=== PATIENT | female | born 1950 | race Caucasian/White ===

== ENCOUNTER 2018-12-15 22:00 | Inpatient (IN) | payer MEDICARE ==
[~2018-12-15] VITALS: Ht 160 cm; Wt 93.9 kg
[~2018-12-15 22:00] MED LIST: ASPI325T8 PO; DIME120C2 PO; TIZANIDINE HCL2 MG PO; TOLT1TAB2 PO
[2018-12-15] MEDS ORDERED: ASPIRIN 81 MG TAB.CHEW PO ONE (22:30)
[2018-12-15] MEDS ORDERED: IV RINGERS SOLUTION,LACTATED 1,000 ML IV SCH (22:30)
[2018-12-15] MEDS ORDERED: methylPREDNISolone SOD SUCC PF 125 MG/2 ML VIAL. IV ONE (22:30)
[2018-12-15] MEDS ORDERED: VANCOMYCIN 1 GM in IV NORMAL SALINE 250ML 250 ML IV ONE (22:30)
--- NOTE | 2018-12-15 22:41 | ED.ADGEN ---
Past History Past Medical History: Bronchitis, CAD, COPD, Depression, Diabetes, UTI, Other Additional Past Medical Histor: MS Past Surgical History: Appendectomy, Hysterectomy, Other Smoking: Non-smoker, Quit Greater Than 1 Year Alcohol Use: None Drug Use: None Adult General Chief Complaint Chief Complaint ".. I been getting sick for a while.... Weeks.. at least two.... Urinary tract infections..on some kind of antibiotic.. but getting sicker..high fevers..and I ve had MS ...since 2006...was my diagnosis... but had it probably for years... " " [facility] sent me up because of my fever s never got better on antibiotics..." HPI HPI Patient is a 68 year old female who presents with above hx and complaints fever , chills, fatigues, malaise and increased dyspnea., Pt. a resident of [facility], since 09/24/2016. Patient has a significant medical history of multiple sclerosis, dysphagia, pedis, aspiration, generalized muscle weakness, obesity, respiratory failure with hypoxia and hypercapnia, constipation, urinary retention, hyperlipidemia, peripheral neuropathy, chronic pain, osteoarthritis, frequent falls, hypertension, and generalized deconditioning. Patient passed is followed with Dr. Good. No recent travel or specific ill contacts. Patient presents with history of moderately severe respiratory distress. Review of Systems Review of Systems Constitutional: History of fever or chills [] Eyes: Denies change in visual acuity, redness, or eye pain [] HENT: History of nasal congestion , drainage and sore throat [] Respiratory: History of cough and shortness of breath [] Cardiovascular: No additional information not addressed in HPI [] GI: Denies abdominal pain, nausea, vomiting, bloody stools or diarrhea [] : History of urinary retention and overflow stress incontinence Musculoskeletal: Complains of generalized muscle weakness Integument: Denies rash or skin lesions [] Neurologic: Denies headache, focal weakness or sensory changes [] Endocrine: Denies polyuria or polydipsia [] All other systems were reviewed and found to be within normal limits, except as documented in this note. Family History Family History "Everyone has Emphysema in my family" Current Medications Current Medications Current Medications Medications (Trade) Dose Ordered Sig/Estrada Start Time Stop Time Status Last Admin Dose Admin Albuterol/ Ipratropium (Duoneb) 3 ml 1X ONCE 12/15/18 23:00 12/15/18 23:03 DC 12/16/18 00:00 3 ML Aspirin (Children'S Aspirin) 324 mg 1X ONCE 12/15/18 22:30 12/15/18 22:37 DC 12/15/18 23:20 324 MG Ceftriaxone Sodium 1 gm/ Sodium Chloride 50 ml @ 100 mls/hr 1X ONCE 12/15/18 22:30 12/15/18 22:59 DC 12/15/18 23:51 100 MLS/HR Ceftriaxone Sodium (Rocephin) 1 gm STK-MED ONCE 12/15/18 23:15 12/15/18 23:16 DC Enoxaparin Sodium (Lovenox 80mg Syringe) 80 mg 1X ONCE 12/15/18 23:30 12/15/18 23:31 DC 12/15/18 23:53 80 MG Lactated Ringer's 1,000 ml @ 1,000 mls/hr Q1H 12/15/18 22:30 12/15/18 23:29 DC 12/15/18 23:21 1,000 MLS/HR Methylprednisolone Sodium Succinate (SOLU-Medrol 125MG VIAL) 125 mg 1X ONCE 12/15/18 22:30 12/15/18 22:37 DC 12/15/18 23:22 125 MG Sodium Chloride 50 ml @ As Directed STK-MED ONCE 12/15/18 23:15 12/15/18 23:16 DC Vancomycin HCl 1 gm/Sodium Chloride 250 ml @ 250 mls/hr 1X ONCE 12/15/18 22:30 12/15/18 22:38 DC Vancomycin HCl 2 gm/Sodium Chloride 500 ml @ 250 mls/hr 1X ONCE 12/15/18 22:45 12/16/18 00:44 DC 12/16/18 00:50 250 MLS/HR He nursing for home meds Allergies Allergies Allergies Coded Allergies Type Severity Reaction Last Updated Verified No Known Drug Allergies 12/06/13 No Physical Exam Physical Exam Constitutional: Moderate acute acute distress, chronically ill in appearance. [] HENT: Normocephalic, atraumatic, bilateral external ears normal, oropharynx moist, no oral exudates, nose swollen turbinates, clear rhinorrhea, mildly injected pharynx. Eyes: PERRLA, EOMI, conjunctiva normal, no discharge. Right eye droop. Does have findings of previous cataract eye surgery on right. Neck: Normal range of motion, no tenderness, supple, no stridor. [] Cardiovascular: Tachycardia Heart rate,ill regular rhythm, no murmur, PMI in to the left. Lungs & Thorax: Bilateral breath sounds equal at apex with scattered wheezes and basilar crackles bilaterally on auscultation [] Abdomen: Bowel sounds normal, soft, no tenderness, no masses, no pulsatile masses. [] Skin: Warm, dry, no erythema, no rash. [] Back: No tenderness, no CVA tenderness. [] Extremities: No tenderness, no cyanosis, no clubbing, generalized weakness in legs with foot drop, bilateral ankle edema. [] Has old surgery scar on right hip and femur area. Neurologic: Alert and oriented X 3, generalized motor weakness more in legs and upper body,, decrease plantar sensory function, no focal deficits noted from baseline per patient and her . Psychologic: Affect anxious, judgement normal, mood depressed. Current Patient Data Vital Signs Vital Signs Date Time Temp Pulse Resp B/P (MAP) Pulse Ox O2 Delivery O2 Flow Rate FiO2 12/16/18 00:31 116 14 119/44 (69) 92 Nasal Cannula 2.0 12/15/18 22:05 101.8 Lab Results Laboratory Tests Test 12/15/18 22:17 12/15/18 22:35 12/15/18 23:40 12/15/18 23:59 White Blood Count 10.0 x10^3/uL (4.0-11.0) Red Blood Count 4.79 x10^6/uL (3.50-5.40) Hemoglobin 14.5 g/dL (12.0-15.5) Hematocrit 43.3 % (36.0-47.0) Mean Corpuscular Volume 90 fL (79-100) Mean Corpuscular Hemoglobin 30 pg (25-35) Mean Corpuscular Hemoglobin Concent 33 g/dL (31-37) Red Cell Distribution Width 13.5 % (11.5-14.5) Platelet Count 179 x10^3/uL (140-400) Neutrophils (%) (Auto) 83 % (31-73) H Lymphocytes (%) (Auto) 12 % (24-48) L Monocytes (%) (Auto) 3 % (0-9) Eosinophils (%) (Auto) 1 % (0-3) Basophils (%) (Auto) 0 % (0-3) Neutrophils # (Auto) 8.3 x10^3uL (1.8-7.7) H Lymphocytes # (Auto) 1.2 x10^3/uL (1.0-4.8) Monocytes # (Auto) 0.3 x10^3/uL (0.0-1.1) Eosinophils # (Auto) 0.1 x10^3/uL (0.0-0.7) Basophils # (Auto) 0.0 x10^3/uL (0.0-0.2) Erythrocyte Sedimentation Rate 42 (0-25) H Prothrombin Time 9.8 SEC (9.4-11.4) Prothrombin Time INR 1.0 (0.9-1.1) PTT 23 SEC (23-33) D-Dimer (Margarette) 1.36 mg/L (0.00-0.50) H Sodium Level 138 mmol/L (136-145) Potassium Level 3.5 mmol/L (3.5-5.1) Chloride Level 103 mmol/L (98-107) Carbon Dioxide Level 27 mmol/L (21-32) Anion Gap 8 (6-14) Blood Urea Nitrogen 18 mg/dL (7-20) Creatinine 0.7 mg/dL (0.6-1.0) Estimated GFR (Cockcroft-Gault) 83.2 Glucose Level 190 mg/dL (70-99) H Lactic Acid Level 1.9 mmol/L (0.4-2.0) Calcium Level 8.4 mg/dL (8.5-10.1) L Magnesium Level 1.7 mg/dL (1.8-2.4) L Total Bilirubin 0.5 mg/dL (0.2-1.0) Direct Bilirubin 0.1 mg/dL (0.0-0.2) Aspartate Amino Transferase (AST) 21 U/L (15-37) Alanine Aminotransferase (ALT) 11 U/L (14-59) L Alkaline Phosphatase 60 U/L (46-116) Creatine Kinase 32 U/L (26-192) Troponin I Quantitative 0.129 ng/mL (0-0.055) H HP-Pnf-P-Type Natriuretic Peptide 92 pg/mL (0-124) Total Protein 8.3 g/dL (6.4-8.2) H Albumin 3.1 g/dL (3.4-5.0) L Lipase 107 U/L (73-393) Blood pH 7.39 (7.35-7.45) Blood Gas PCO2 40 mmHg (35-45) Blood Gas PO2 54 mmHg (80-100) L Blood Gas HCO3 24 mmol/L (22-26) Arterial Bld O2 Saturation (Calc) 84 % (92-99) L FiO2 21 % Urine Collection Type U cath Urine Color Yellow Urine Clarity Cloudy Urine pH 7.0 Urine Specific [place] 1.020 Urine Protein 100 mg/dl (NEG-TRACE) Urine Glucose (UA) Neg mg/dL (NEG) Urine Ketones (Stick) 40 mg/dL (NEG) Urine Blood Mod (NEG) Urine Nitrite Pos (NEG) Urine Bilirubin Neg (NEG) Urine Urobilinogen Dipstick 0.2 mg/dL (0.2 mg/dL) Urine Leukocyte Esterase Large (NEG) Urine RBC 1-2 /HPF (0-2) Urine WBC >40 /HPF (0-4) Urine Squamous Epithelial Cells None /LPF Urine Bacteria Many /HPF (0-FEW) Influenza Type A (Rapid) Negative (NEGATIVE) Influenza Type B (Rapid) Negative (NEGATIVE) EKG EKG My interpretation EKG shows a sinus tachycardia with a wavering baseline due to respiratory distress. There is a right axis deviation. Some nonspecific contour changes. No findings of acute STEMI with contralateral changes.[] Radiology/Procedures Radiology/Procedures My interpretation of chest x-ray shows chronic pulmonary changes. Basilar atelectasis. Cardiomegaly.[] No large pulmonary consolidation. Course & Med Decision Making Course & Med Decision Making Pertinent Labs and Imaging studies reviewed. (See chart for details) Discussed presentation, testing and treatment plan with - Admit for further eval. Cardiology consult. [] Final Impression Final Impression 1. Fevers 2. Urinary tract infections 3. Multiple sclerosis 4. Diabetes- glucose is 190 5. Elevated troponin- 0.129 6. Malnutrition albumin 3.1 7. Hypo-magnesium 1.7 8. Elevated d-dimer 1.36 9. SIRS/ Sepsis? 10.Decondition- 11.Bronchitis 12.Acute on Chronic Respiratory Failure-Hypoxic/Hypercarbic [] Dragon Disclaimer Dragon Disclaimer This electronic medical record was generated, in whole or in part, using a voice recognition dictation system. Dragon Disclaimer This chart was dictated in whole or in part using Voice Recognition software in a busy, high-work load, and often noisy Emergency Department environment. It may contain unintended and wholly unrecognized errors or omissions. Dragon Disclaimer This chart was dictated in whole or in part using Voice Recognition software in a busy, high-work load, and often noisy Emergency Department environment. It may contain unintended and wholly unrecognized errors or omissions. Discharge Summary Visit Information Final Diagnosis Problems Medical Problems: (1) Fever Status: Acute Brief Hospital Course Allergies Allergies Coded Allergies Type Severity Reaction Last Updated Verified No Known Drug Allergies 12/06/13 No Vital Signs Vital Signs Date Time Temp Pulse Resp B/P (MAP) Pulse Ox O2 Delivery O2 Flow Rate FiO2 12/16/18 00:31 116 14 119/44 (69) 92 Nasal Cannula 2.0 12/15/18 22:05 101.8 Lab Results Laboratory Tests Test 12/15/18 22:17 12/15/18 22:35 12/15/18 23:40 12/15/18 23:59 White Blood Count 10.0 x10^3/uL (4.0-11.0) Red Blood Count 4.79 x10^6/uL (3.50-5.40) Hemoglobin 14.5 g/dL (12.0-15.5) Hematocrit 43.3 % (36.0-47.0) Mean Corpuscular Volume 90 fL (79-100) Mean Corpuscular Hemoglobin 30 pg (25-35) Mean Corpuscular Hemoglobin Concent 33 g/dL (31-37) Red Cell Distribution Width 13.5 % (11.5-14.5) Platelet Count 179 x10^3/uL (140-400) Neutrophils (%) (Auto) 83 % (31-73) Lymphocytes (%) (Auto) 12 % (24-48) Monocytes (%) (Auto) 3 % (0-9) Eosinophils (%) (Auto) 1 % (0-3) Basophils (%) (Auto) 0 % (0-3) Neutrophils # (Auto) 8.3 x10^3uL (1.8-7.7) Lymphocytes # (Auto) 1.2 x10^3/uL (1.0-4.8) Monocytes # (Auto) 0.3 x10^3/uL (0.0-1.1) Eosinophils # (Auto) 0.1 x10^3/uL (0.0-0.7) Basophils # (Auto) 0.0 x10^3/uL (0.0-0.2) Erythrocyte Sedimentation Rate 42 (0-25) Prothrombin Time 9.8 SEC (9.4-11.4) Prothromb Time International Ratio 1.0 (0.9-1.1) Activated Partial Thromboplast Time 23 SEC (23-33) D-Dimer (Margarette) 1.36 mg/L (0.00-0.50) Sodium Level 138 mmol/L (136-145) Potassium Level 3.5 mmol/L (3.5-5.1) Chloride Level 103 mmol/L (98-107) Carbon Dioxide Level 27 mmol/L (21-32) Anion Gap 8 (6-14) Blood Urea Nitrogen 18 mg/dL (7-20) Creatinine 0.7 mg/dL (0.6-1.0) Estimated GFR (Cockcroft-Gault) 83.2 Glucose Level 190 mg/dL (70-99) Lactic Acid Level 1.9 mmol/L (0.4-2.0) Calcium Level 8.4 mg/dL (8.5-10.1) Magnesium Level 1.7 mg/dL (1.8-2.4) Total Bilirubin 0.5 mg/dL (0.2-1.0) Direct Bilirubin 0.1 mg/dL (0.0-0.2) Aspartate Amino Transf (AST/SGOT) 21 U/L (15-37) Alanine Aminotransferase (ALT/SGPT) 11 U/L (14-59) Alkaline Phosphatase 60 U/L (46-116) Creatine Kinase 32 U/L (26-192) Troponin I Quantitative 0.129 ng/mL (0-0.055) WB-Pyw-D-Type Natriuretic Peptide 92 pg/mL (0-124) Total Protein 8.3 g/dL (6.4-8.2) Albumin 3.1 g/dL (3.4-5.0) Lipase 107 U/L (73-393) Blood Gas pH 7.39 (7.35-7.45) Blood Gas PCO2 40 mmHg (35-45) Blood Gas PO2 54 mmHg (80-100) Blood Gas HCO3 24 mmol/L (22-26) Arterial Bld O2 Saturation (Calc) 84 % (92-99) FiO2 21 % Urine Collection Type U cath Urine Color Yellow Urine Clarity Cloudy Urine pH 7.0 Urine Specific [place] 1.020 Urine Protein 100 mg/dl (NEG-TRACE) Urine Glucose (UA) Neg mg/dL (NEG) Urine Ketones (Stick) 40 mg/dL (NEG) Urine Blood Mod (NEG) Urine Nitrite Pos (NEG) Urine Bilirubin Neg (NEG) Urine Urobilinogen Dipstick 0.2 mg/dL (0.2 mg/dL) Urine Leukocyte Esterase Large (NEG) Urine RBC 1-2 /HPF (0-2) Urine WBC >40 /HPF (0-4) Urine Squamous Epithelial Cells None /LPF Urine Bacteria Many /HPF (0-FEW) Influenza Type A (Rapid) Negative (NEGATIVE) Influenza Type B (Rapid) Negative (NEGATIVE) Brief Hospital Course Ms. Gayle is a 68 old female who presented with complaints fevers and MSShankar Hx of UTI - at CT. Admit to Discharge Information Condition at Discharge: Improved, Stable Dischare Medications Current Medications Aspirin (Children'S Aspirin) 324 mg 1X ONCE PO Last administered on 12/15/18at 23:20; Admin Dose 324 MG; Start 12/15/18 at 22:30; Stop 12/15/18 at 22:37; Status DC Lactated Ringer's 1,000 ml @ 1,000 mls/hr Q1H IV Last administered on at 23:21; Admin Dose 1,000 MLS/HR; Start 12/15/18 at 22:30; Stop 12/15/18 at 23:29; Status DC Methylprednisolone Sodium Succinate (SOLU-Medrol 125MG VIAL) 125 mg 1X ONCE IV Last administered on 12/15/18at 23:22; Admin Dose 125 MG; Start 12/15/18 at 22: 30; Stop 12/15/18 at 22:37; Status DC Ceftriaxone Sodium 1 gm/ Sodium Chloride 50 ml @ 100 mls/hr 1X ONCE IV Last administered on 12/15/18at 23:51; Admin Dose 100 MLS/HR; Start 12/15/18 at 22:30 ; Stop 12/15/18 at 22:59; Status DC Vancomycin HCl 1 gm/Sodium Chloride 250 ml @ 250 mls/hr 1X ONCE IV ; Start 10/21 at 22:30; Stop 12/15/18 at 22:38; Status DC Vancomycin HCl 2 gm/Sodium Chloride 500 ml @ 250 mls/hr 1X ONCE IV Last administered on 12/16/18at 00:50; Admin Dose 250 MLS/HR; Start 12/15/18 at 22:45 ; Stop 12/16/18 at 00:44; Status DC Albuterol/ Ipratropium (Duoneb) 3 ml 1X ONCE NEB Last administered on at 00:00; Admin Dose 3 ML; Start 12/15/18 at 23:00; Stop 12/15/18 at 23:03; Status DC Sodium Chloride 50 ml @ As Directed STK-MED ONCE .ROUTE ; Start 12/15/18 at 23: 15; Stop 12/15/18 at 23:16; Status DC Enoxaparin Sodium (Lovenox 80mg Syringe) 80 mg 1X ONCE SQ Last administered on 12/15/18at 23:53; Admin Dose 80 MG; Start 12/15/18 at 23:30; Stop 12/15/18 at 23:31; Status DC Ceftriaxone Sodium (Rocephin) 1 gm STK-MED ONCE .ROUTE ; Start 12/15/18 at 23:15 ; Stop 12/15/18 at 23:16; Status DC Active Scripts Active Reported Aspirin 325 Mg Tablet 325 Mg PO Tecfidera (Dimethyl Fumarate) 120 Mg Capsule.dr 120 Mg PO Tizanidine Hcl 2 Mg Tablet 2 Mg PO Detrol (Tolterodine Tartrate) 1 Mg Tablet 1 Mg PO Discharge Summary Visit Information Final Diagnosis Problems Medical Problems: (1) Fever Status: Acute Brief Hospital Course Allergies Allergies Coded Allergies Type Severity Reaction Last Updated Verified No Known Drug Allergies 12/06/13 No Vital Signs Vital Signs Date Time Temp Pulse Resp B/P (MAP) Pulse Ox O2 Delivery O2 Flow Rate FiO2 12/16/18 00:31 116 14 119/44 (69) 92 Nasal Cannula 2.0 12/15/18 22:05 101.8 Lab Results Laboratory Tests Test 12/15/18 22:17 12/15/18 22:35 12/15/18 23:40 12/15/18 23:59 White Blood Count 10.0 x10^3/uL (4.0-11.0) Red Blood Count 4.79 x10^6/uL (3.50-5.40) Hemoglobin 14.5 g/dL (12.0-15.5) Hematocrit 43.3 % (36.0-47.0) Mean Corpuscular Volume 90 fL (79-100) Mean Corpuscular Hemoglobin 30 pg (25-35) Mean Corpuscular Hemoglobin Concent 33 g/dL (31-37) Red Cell Distribution Width 13.5 % (11.5-14.5) Platelet Count 179 x10^3/uL (140-400) Neutrophils (%) (Auto) 83 % (31-73) Lymphocytes (%) (Auto) 12 % (24-48) Monocytes (%) (Auto) 3 % (0-9) Eosinophils (%) (Auto) 1 % (0-3) Basophils (%) (Auto) 0 % (0-3) Neutrophils # (Auto) 8.3 x10^3uL (1.8-7.7) Lymphocytes # (Auto) 1.2 x10^3/uL (1.0-4.8) Monocytes # (Auto) 0.3 x10^3/uL (0.0-1.1) Eosinophils # (Auto) 0.1 x10^3/uL (0.0-0.7) Basophils # (Auto) 0.0 x10^3/uL (0.0-0.2) Erythrocyte Sedimentation Rate 42 (0-25) Prothrombin Time 9.8 SEC (9.4-11.4) Prothromb Time International Ratio 1.0 (0.9-1.1) Activated Partial Thromboplast Time 23 SEC (23-33) D-Dimer (Margarette) 1.36 mg/L (0.00-0.50) Sodium Level 138 mmol/L (136-145) Potassium Level 3.5 mmol/L (3.5-5.1) Chloride Level 103 mmol/L (98-107) Carbon Dioxide Level 27 mmol/L (21-32) Anion Gap 8 (6-14) Blood Urea Nitrogen 18 mg/dL (7-20) Creatinine 0.7 mg/dL (0.6-1.0) Estimated GFR (Cockcroft-Gault) 83.2 Glucose Level 190 mg/dL (70-99) Lactic Acid Level 1.9 mmol/L (0.4-2.0) Calcium Level 8.4 mg/dL (8.5-10.1) Magnesium Level 1.7 mg/dL (1.8-2.4) Total Bilirubin 0.5 mg/dL (0.2-1.0) Direct Bilirubin 0.1 mg/dL (0.0-0.2) Aspartate Amino Transf (AST/SGOT) 21 U/L (15-37) Alanine Aminotransferase (ALT/SGPT) 11 U/L (14-59) Alkaline Phosphatase 60 U/L (46-116) Creatine Kinase 32 U/L (26-192) Troponin I Quantitative 0.129 ng/mL (0-0.055) BA-Yyn-O-Type Natriuretic Peptide 92 pg/mL (0-124) Total Protein 8.3 g/dL (6.4-8.2) Albumin 3.1 g/dL (3.4-5.0) Lipase 107 U/L (73-393) Blood Gas pH 7.39 (7.35-7.45) Blood Gas PCO2 40 mmHg (35-45) Blood Gas PO2 54 mmHg (80-100) Blood Gas HCO3 24 mmol/L (22-26) Arterial Bld O2 Saturation (Calc) 84 % (92-99) FiO2 21 % Urine Collection Type U cath Urine Color Yellow Urine Clarity Cloudy Urine pH 7.0 Urine Specific [place] 1.020 Urine Protein 100 mg/dl (NEG-TRACE) Urine Glucose (UA) Neg mg/dL (NEG) Urine Ketones (Stick) 40 mg/dL (NEG) Urine Blood Mod (NEG) Urine Nitrite Pos (NEG) Urine Bilirubin Neg (NEG) Urine Urobilinogen Dipstick 0.2 mg/dL (0.2 mg/dL) Urine Leukocyte Esterase Large (NEG) Urine RBC 1-2 /HPF (0-2) Urine WBC >40 /HPF (0-4) Urine Squamous Epithelial Cells None /LPF Urine Bacteria Many /HPF (0-FEW) Influenza Type A (Rapid) Negative (NEGATIVE) Influenza Type B (Rapid) Negative (NEGATIVE) Brief Hospital Course Ms. Gayle is a 68 old [sex] who presented with [ ] Discharge Information Dischare Medications Current Medications Aspirin (Children'S Aspirin) 324 mg 1X ONCE PO Last administered on 12/15/18at 23:20; Admin Dose 324 MG; Start 12/15/18 at 22:30; Stop 12/15/18 at 22:37; Status DC Lactated Ringer's 1,000 ml @ 1,000 mls/hr Q1H IV Last administered on at 23:21; Admin Dose 1,000 MLS/HR; Start 12/15/18 at 22:30; Stop 12/15/18 at 23:29; Status DC Methylprednisolone Sodium Succinate (SOLU-Medrol 125MG VIAL) 125 mg 1X ONCE IV Last administered on 12/15/18at 23:22; Admin Dose 125 MG; Start 12/15/18 at 22: 30; Stop 12/15/18 at 22:37; Status DC Ceftriaxone Sodium 1 gm/ Sodium Chloride 50 ml @ 100 mls/hr 1X ONCE IV Last administered on 12/15/18at 23:51; Admin Dose 100 MLS/HR; Start 12/15/18 at 22:30 ; Stop 12/15/18 at 22:59; Status DC Vancomycin HCl 1 gm/Sodium Chloride 250 ml @ 250 mls/hr 1X ONCE IV ; Start 10/21 at 22:30; Stop 12/15/18 at 22:38; Status DC Vancomycin HCl 2 gm/Sodium Chloride 500 ml @ 250 mls/hr 1X ONCE IV Last administered on 12/16/18at 00:50; Admin Dose 250 MLS/HR; Start 12/15/18 at 22:45 ; Stop 12/16/18 at 00:44; Status DC Albuterol/ Ipratropium (Duoneb) 3 ml 1X ONCE NEB Last administered on at 00:00; Admin Dose 3 ML; Start 12/15/18 at 23:00; Stop 12/15/18 at 23:03; Status DC Sodium Chloride 50 ml @ As Directed STK-MED ONCE .ROUTE ; Start 12/15/18 at 23: 15; Stop 12/15/18 at 23:16; Status DC Enoxaparin Sodium (Lovenox 80mg Syringe) 80 mg 1X ONCE SQ Last administered on 2/12/19at 23:53; Admin Dose 80 MG; Start 12/15/18 at 23:30; Stop 12/15/18 at 23:31; Status DC Ceftriaxone Sodium (Rocephin) 1 gm STK-MED ONCE .ROUTE ; Start 12/15/18 at 23:15 ; Stop 12/15/18 at 23:16; Status DC Active Scripts Active Reported Aspirin 325 Mg Tablet 325 Mg PO Tecfidera (Dimethyl Fumarate) 120 Mg Capsule.dr 120 Mg PO Tizanidine Hcl 2 Mg Tablet 2 Mg PO Detrol (Tolterodine Tartrate) 1 Mg Tablet 1 Mg PO KENYETTA MONTANO MD Dec 15, 2018 22:41
[2018-12-15] MEDS ORDERED: VANCOMYCIN 2 GM in IV NORMAL SALINE 500ML 500 ML IV ONE (22:45)
[2018-12-15 22:52] LABS: BASO % 0 % (0-3); EOS # 0.1 x10^3/uL (0.0-0.7); EOS % 1 % (0-3); HEMATOCRIT 43.3 % (36.0-47.0); HEMOGLOBIN 14.5 g/dL (12.0-15.5); LYMPH # 1.2 x10^3/uL (1.0-4.8); LYMPH % 12 % (24-48); MEAN CORPUSCULAR HEMOGLOBIN 30 pg (25-35); MEAN CORPUSCULAR HGB CONC 33 g/dL (31-37); MEAN CORPUSCULAR VOLUME 90 fL (79-100); MONO # 0.3 x10^3/uL (0.0-1.1); MONO % 3 % (0-9); NEUT # 8.3 x10^3uL (1.8-7.7); NEUT % 83 % (31-73); PLATELET COUNT 179 x10^3/uL (140-400); RED BLOOD COUNT 4.79 x10^6/uL (3.50-5.40); RED CELL DISTRIBUTION WIDTH 13.5 % (11.5-14.5)
[2018-12-15] MEDS ORDERED: IPRATRPIUM/ALBUTEROL 0.5/2.5MG 3 ML NEBU. NEB ONE (23:00)
--- NOTE | 2018-12-15 23:04 | RAD ---
AP portable chest radiograph 12/15/2018 Clinical History: Shortness of breath. An AP erect portable digital radiograph of the chest was obtained. No previous studies are available for comparison. The cardiac silhouette is mildly enlarged. The thoracic aorta is mildly tortuous. Atherosclerotic calcification of the thoracic aorta is seen. No acute pulmonary infiltrate is noted. No pneumothorax or pleural effusion is seen. Degenerative changes are seen involving the thoracic spine and both shoulders. IMPRESSION: No acute abnormality is seen. Electronically signed by: Elliot Galvan MD (12/15/2018 11:02 PM) [facility]
[2018-12-15 23:09] LABS: ALBUMIN 3.1 g/dL (3.4-5.0); CALCIUM 8.4 mg/dL (8.5-10.1); CREATININE 0.7 mg/dL (0.6-1.0); DIRECT BILIRUBIN 0.1 mg/dL (0.0-0.2); GFR 83.2; MAGNESIUM 1.7 mg/dL (1.8-2.4); POTASSIUM 3.5 mmol/L (3.5-5.1); TOTAL BILIRUBIN 0.5 mg/dL (0.2-1.0); TOTAL PROTEIN 8.3 g/dL (6.4-8.2)
[2018-12-15] MEDS ORDERED: IV NORMAL SALINE 50ML 50 ML ONE (23:15)
[2018-12-15] MEDS ORDERED: cefTRIAXone SODIUM 1 GM VIAL ONE (23:15)
[2018-12-15] MEDS ORDERED: ENOXAPARIN ** NOTE DOSE ** SYRINGE SQ ONE (23:30)
[2018-12-15 23:44] LABS: BGAS PH 7.39 (7.35-7.45)
[2018-12-15 23:54] LABS: SEDIMENTATION RATE 42 (0-25)
[2018-12-16 00:34] LABS: INFLUENZA A PATIENT NEGATIVE (NEGATIVE); INFLUENZA B PATIENT NEGATIVE (NEGATIVE)
[2018-12-16 00:58] LABS: BILIRUBIN,URINE NEG (NEG); CLARITY,URINE CLOUDY; COLOR,URINE YELLOW; GLUCOSE,URINE NEG (NEG)
[2018-12-16 00:59] LABS: BACTERIA,URINE MANY /HPF (0-FEW); NITRITE,URINE POS (NEG); UROBILINOGEN,URINE 0.2 mg/dL (0.2 mg/dL); WBC,URINE >40 /HPF (0-4)
[2018-12-16] MEDS ORDERED: ONDANSETRON PF 4 MG/2 ML VIAL. IV PRN (01:15)
[2018-12-16] MEDS ORDERED: ACETAMINOPHEN 325 MG TABLET PO PRN ×2 (01:15→06:30)
[2018-12-16] MEDS ORDERED: MAGNESIUM SULFATE 2GM 50 ML IV ONE (02:00)
[2018-12-16 03:31] VITALS: BP 102/60
[2018-12-16] MEDS ORDERED: GABA-586 PO (04:28)
[2018-12-16] MEDS ORDERED: SENN-80 PO (04:28)
[2018-12-16] MEDS ORDERED: DOCU100C28 PO (04:28)
[2018-12-16] MEDS ORDERED: MIRA25TA PO (04:28)
[2018-12-16] MEDS ORDERED: HYDR-2765 PO ×2 (04:28)
[2018-12-16] MEDS ORDERED: TOLT4CAP PO (04:28)
[2018-12-16] MEDS ORDERED: NA P RC (04:28)
[2018-12-16] MEDS ORDERED: MAGN2400 PO (04:28)
[2018-12-16] MEDS ORDERED: MELO15TA23 PO (04:28)
[2018-12-16] MEDS ORDERED: NITR100C62 PO (04:28)
[2018-12-16] MEDS ORDERED: BISA10SU2 RC (04:28)
[2018-12-16] MEDS ORDERED: ACET325C5 PO (04:28)
[2018-12-16 05:01] VITALS: BP 105/68
[2018-12-16] MEDS ORDERED: IPRATRPIUM/ALBUTEROL 0.5/2.5MG 3 ML NEBU. ONE (05:03)
[2018-12-16] MEDS: IPRATRPIUM/ALBUTEROL 0.5/2.5MG 3 ML NEBU. NEB SCH ×4 (05:25→22:31)
[2018-12-16] MEDS ORDERED: BISACODYL 10 MG SUPP.RECT RC PRN (06:30)
[2018-12-16] MEDS ORDERED: MAGNESIUM HYDROXIDE 2,400 MG/30 ML ORAL.SUSP. PO PRN (06:30)
[2018-12-16] MEDS ORDERED: SODIUM PHOSPHATES 19/7GM 133 ML ENEMA. RC PRN (06:30)
[2018-12-16] MEDS ORDERED: HYDROcodone/APAP 7.5/325MG 1 TAB TABLET PO PRN (06:30)
[2018-12-16] MEDS ORDERED: ASPIRIN 81 MG TAB.CHEW PO SCH (08:00)
[2018-12-16] MEDS: DOCUSATE SODIUM 100 MG CAPSULE PO SCH ×2 (08:43→22:33)
[2018-12-16] MEDS: GABAPENTIN 300 MG CAPSULE. PO SCH ×3 (08:43→22:31)
[2018-12-16] MEDS: MELOXICAM 15 MG TABLET. PO SCH (08:44)
[2018-12-16] MEDS: ASPIRIN 325 MG TABLET PO SCH (08:44)
[2018-12-16] MEDS: OXYBUTYNIN CHLORIDE 5 MG TABLET PO SCH ×3 (08:44→22:32)
[2018-12-16] MEDS: MIRABEGRON 25 MG TAB.ER.24H PO SCH ×2 (08:46→22:32)
[2018-12-16] MEDS ORDERED: NITROFURANTOIN MONOHYD/M-CRYST 100 MG CAPSULE. PO SCH (09:00)
[2018-12-16] MEDS ORDERED: SENNOSIDES/DOCUSATE 8.6/50MG TABLET. PO SCH (09:00)
[2018-12-16] MEDS ORDERED: ENOXAPARIN ** NOTE DOSE ** SYRINGE SQ SCH (09:00)
[2018-12-16] MEDS ORDERED: SENNOSIDES/DOCUSATE 8.6/50MG TABLET. PO ONE (09:00)
[2018-12-16] MEDS ORDERED: methylPREDNISolone SOD SUCC PF 125 MG/2 ML VIAL. IV SCH (09:00)
--- NOTE | 2018-12-16 09:40 | PDOC2 ---
CIPRIANOARIES Derian CHINESE INSTRUCTOR 12/16/18 0940: CONSULT Date of Admission DATE: 12/16/18 TIME: 09:40 Reason for Consult: elevated troponin Problem List Problems Medical Problems: (1) Fever Status: Acute History of Present Illness Ms Gayle is a 68 year old female with history of multiple sclerosis, hypertension and hyperlipidemia. She presented to the ED with complaints of dysuria and UTI. She was noted in the ED to be hypoxic and have an elevated troponin so consult was called. ER records indicate a history of COPD and CAD but the patient denies any prior history of either. She denies chest pain or discomfort, dyspnea or congestive symptoms. Her functional capacity is limited due to her MS. She does ambulate with a walker for short distances but spends most of her time in bed or chair. She does report some swelling in her legs off and on but no unusual amounts recently. She denies palpitations, lightheadedness or syncope. Past Medical History multiple sclerosis Cardiovascular: HTN, hyperipidemia CENTRAL NERVOUS SYSTEM: Periperal neuropathy GI: Constipation Musculoskeletal: Osteoarthritis Renal/: UTI, Urinary Incontinence Past Surgical History: Appendectomy Family History non contributory Social History no smoking, no significant ETOH, no illicit drugs Current Medications Current Medications Aspirin (Children'S Aspirin) 324 mg 1X ONCE PO Last administered on 12/15/18at 23:20; Start 12/15/18 at 22:30; Stop 12/15/18 at 22:37; Status DC Lactated Ringer's 1,000 ml @ 1,000 mls/hr Q1H IV Last administered on at 23:21; Start 12/15/18 at 22:30; Stop 12/15/18 at 23:29; Status DC Methylprednisolone Sodium Succinate (SOLU-Medrol 125MG VIAL) 125 mg 1X ONCE IV Last administered on 12/15/18at 23:22; Start 12/15/18 at 22:30; Stop 12/15/18 at 22:37; Status DC Ceftriaxone Sodium 1 gm/ Sodium Chloride 50 ml @ 100 mls/hr 1X ONCE IV Last administered on 12/15/18at 23:51; Start 12/15/18 at 22:30; Stop 12/15/18 at 22:59 ; Status DC Vancomycin HCl 1 gm/Sodium Chloride 250 ml @ 250 mls/hr 1X ONCE IV ; Start 10/21 at 22:30; Stop 12/15/18 at 22:38; Status DC Vancomycin HCl 2 gm/Sodium Chloride 500 ml @ 250 mls/hr 1X ONCE IV Last administered on 12/16/18at 00:50; Start 12/15/18 at 22:45; Stop 12/16/18 at 00:44 ; Status DC Albuterol/ Ipratropium (Duoneb) 3 ml 1X ONCE NEB Last administered on at 00:00; Start 12/15/18 at 23:00; Stop 12/15/18 at 23:03; Status DC Sodium Chloride 50 ml @ As Directed STK-MED ONCE .ROUTE ; Start 12/15/18 at 23: 15; Stop 12/15/18 at 23:16; Status DC Enoxaparin Sodium (Lovenox 80mg Syringe) 80 mg 1X ONCE SQ Last administered on 12/15/18at 23:53; Start 12/15/18 at 23:30; Stop 12/15/18 at 23:31; Status DC Ceftriaxone Sodium (Rocephin) 1 gm STK-MED ONCE .ROUTE ; Start 12/15/18 at 23:15 ; Stop 12/15/18 at 23:16; Status DC Ondansetron HCl (Zofran) 4 mg PRN Q4HRS PRN IV NAUSEA/VOMITING; Start 12/16/18 at 01:15; Stop 12/17/18 at 01:14 Acetaminophen (Tylenol) 650 mg PRN Q4HRS PRN PO FEVER; Start 12/16/18 at 01:15 ; Stop 12/17/18 at 01:14 Albuterol/ Ipratropium (Duoneb) 3 ml RTQID NEB Last administered on 12/16/18at 05:25; Start 12/16/18 at 08:00; Stop 12/17/18 at 07:59 Enoxaparin Sodium (Lovenox 100mg Syringe) 90 mg BID SQ Last administered on at 08:43; Start 12/16/18 at 09:00 Aspirin (Children'S Aspirin) 81 mg DAILY08 PO Last administered on 12/16/18at 08 :44; Start 12/16/18 at 08:00 Magnesium Sulfate 50 ml @ 25 mls/hr 1X ONCE IV Last administered on 12/16/18at 03:34; Start 12/16/18 at 02:00; Stop 12/16/18 at 03:59; Status DC Methylprednisolone Sodium Succinate (SOLU-Medrol 125MG VIAL) 40 mg DAILY IV Last administered on 12/16/18at 08:44; Start 12/16/18 at 09:00 Ceftriaxone Sodium 1 gm/ Sodium Chloride 50 ml @ 100 mls/hr Q24H IV ; Start at 21:00 Albuterol/ Ipratropium (Duoneb) 3 ml STK-MED ONCE .ROUTE ; Start 12/16/18 at 05: 03; Stop 12/16/18 at 05:04; Status DC Aspirin (Melida Aspirin) 325 mg DAILYWBKFT PO Last administered on 12/16/18at 08: 44; Start 12/16/18 at 08:00 Gabapentin (Neurontin) 300 mg TID PO Last administered on 12/16/18at 08:43; Start 12/16/18 at 09:00 Acetaminophen/ Hydrocodone Bitart (Lortab 7.5/325) 1 tab PRN Q6HRS PRN PO PAIN ; Start 12/16/18 at 06:30 Acetaminophen/ Hydrocodone Bitart (Lortab 7.5/325) 1 tab Q8HRS PO ; Start at 14:00 Mirabegron (Myrbetriq) 25 mg BID PO Last administered on 12/16/18at 08:46; Start 12/16/18 at 09:00 Sodium Biphosphate/ Sodium Phosphate (Fleet Adult) 133 ml PRN DAILY PRN RC CONSTIPATION; Start 12/16/18 at 06:30 Acetaminophen (Tylenol) 650 mg PRN Q4HRS PRN PO PAIN / TEMP; Start 12/16/18 at 06:30 Bisacodyl (Dulcolax Supp) 10 mg PRN DAILY PRN RC CONSTIPATION; Start 12/16/18 at 06:30 Docusate Sodium (Colace) 100 mg BID PO Last administered on 12/16/18at 08:43; Start 12/16/18 at 09:00 Magnesium Hydroxide (Milk Of Magnesia) 2,400 mg PRN DAILY PRN PO CONSTIPATION; Start 12/16/18 at 06:30 Meloxicam (Mobic) 15 mg DAILY PO Last administered on 12/16/18at 08:44; Start at 09:00 Nitrofurantoin Macrocrystals (Macrobid) 100 mg BID PO Last administered on 12/16 08:43; Start 12/16/18 at 09:00 Senna/Docusate Sodium (Senna Plus) 8.6 tab TID PO Last administered on 08:44; Start 12/16/18 at 09:00 Oxybutynin Chloride (Ditropan) 5 mg [id number] PO Last administered on 12/16/18 08 :44; Start 12/16/18 at 09:00 Active Scripts Active Reported Milk Of Magnesia (Magnesium Hydroxide) 2,400 Mg/10 Ml Oral.susp 2,400 Mg PO PRN DAILY PRN Hydrocodone-Apap 7.5-325 (Hydrocodone Bit/Acetaminophen) 1 Each Tablet 1 Tab PO PRN Q6HRS PRN Enema Ready To Use (Na Phos,M-B/Na Phos,Di-Ba) 133 Ml Enema 133 Ml RC PRN DAILY PRN Bisacodyl 10 Mg Supp.rect 10 Mg RC PRN DAILY PRN Tylenol (Acetaminophen) 325 Mg Capsule 650 Mg PO PRN Q4HRS PRN Detrol La (Tolterodine Tartrate) 4 Mg Cap.er.24h 4 Mg PO QHS Senna (Sennosides) 8.6 Mg Tablet 8.6 Mg PO TID Myrbetriq (Mirabegron) 25 Mg Tab.er.24h 25 Mg PO BID Meloxicam 15 Mg Tablet 15 Mg PO DAILY Macrobid 100 Mg Capsule (Nitrofurantoin Monohyd/M-Cryst) 100 Mg Capsule 100 Mg PO BID Hydrocodone-Apap 7.5-325 (Hydrocodone Bit/Acetaminophen) 1 Each Tablet 1 Tab PO Q8HRS Gabapentin (Gabapentin) 300 Mg Capsule 300 Mg PO TID Docusate Sodium 100 Mg Capsule 100 Mg PO BID Aspirin 325 Mg Tablet 325 Mg PO DAILY Allergies: Coded Allergies: No Known Drug Allergies (Unverified , 12/06/13) Review of System as per HPI or negative General: Alert, Oriented X3, Cooperative, No acute distress HEENT: Atraumatic, EOMI, Mucous membr. moist/pink Lungs: Other (right basilar crackles otherwise clear) Abdomen: Normal bowel sounds, Soft Extremities: No cyanosis, Normal pulses, Other (1+ edema) Neuro: Normal speech Psych/Mental Status: Mental status NL VITALS Vital Signs Date Time Temp Pulse Resp B/P (MAP) Pulse Ox O2 Delivery O2 Flow Rate FiO2 12/16/18 08:55 Nasal Cannula 2.0 12/16/18 05:32 93 12/16/18 05:01 98.5 93 20 105/68 (80) Labs Laboratory Tests Test 12/15/18 22:17 12/15/18 22:35 12/15/18 23:40 12/15/18 23:59 White Blood Count 10.0 x10^3/uL (4.0-11.0) Red Blood Count 4.79 x10^6/uL (3.50-5.40) Hemoglobin 14.5 g/dL (12.0-15.5) Hematocrit 43.3 % (36.0-47.0) Mean Corpuscular Volume 90 fL (79-100) Mean Corpuscular Hemoglobin 30 pg (25-35) Mean Corpuscular Hemoglobin Concent 33 g/dL (31-37) Red Cell Distribution Width 13.5 % (11.5-14.5) Platelet Count 179 x10^3/uL (140-400) Neutrophils (%) (Auto) 83 % (31-73) Lymphocytes (%) (Auto) 12 % (24-48) Monocytes (%) (Auto) 3 % (0-9) Eosinophils (%) (Auto) 1 % (0-3) Basophils (%) (Auto) 0 % (0-3) Neutrophils # (Auto) 8.3 x10^3uL (1.8-7.7) Lymphocytes # (Auto) 1.2 x10^3/uL (1.0-4.8) Monocytes # (Auto) 0.3 x10^3/uL (0.0-1.1) Eosinophils # (Auto) 0.1 x10^3/uL (0.0-0.7) Basophils # (Auto) 0.0 x10^3/uL (0.0-0.2) Erythrocyte Sedimentation Rate 42 (0-25) Prothrombin Time 9.8 SEC (9.4-11.4) Prothromb Time International Ratio 1.0 (0.9-1.1) Activated Partial Thromboplast Time 23 SEC (23-33) D-Dimer (Margarette) 1.36 mg/L (0.00-0.50) Sodium Level 138 mmol/L (136-145) Potassium Level 3.5 mmol/L (3.5-5.1) Chloride Level 103 mmol/L (98-107) Carbon Dioxide Level 27 mmol/L (21-32) Anion Gap 8 (6-14) Blood Urea Nitrogen 18 mg/dL (7-20) Creatinine 0.7 mg/dL (0.6-1.0) Estimated GFR (Cockcroft-Gault) 83.2 Glucose Level 190 mg/dL (70-99) Lactic Acid Level 1.9 mmol/L (0.4-2.0) Calcium Level 8.4 mg/dL (8.5-10.1) Magnesium Level 1.7 mg/dL (1.8-2.4) Total Bilirubin 0.5 mg/dL (0.2-1.0) Direct Bilirubin 0.1 mg/dL (0.0-0.2) Aspartate Amino Transf (AST/SGOT) 21 U/L (15-37) Alanine Aminotransferase (ALT/SGPT) 11 U/L (14-59) Alkaline Phosphatase 60 U/L (46-116) Creatine Kinase 32 U/L (26-192) Troponin I Quantitative 0.129 ng/mL (0-0.055) IC-Drr-M-Type Natriuretic Peptide 92 pg/mL (0-124) Total Protein 8.3 g/dL (6.4-8.2) Albumin 3.1 g/dL (3.4-5.0) Lipase 107 U/L (73-393) Blood Gas pH 7.39 (7.35-7.45) Blood Gas PCO2 40 mmHg (35-45) Blood Gas PO2 54 mmHg (80-100) Blood Gas HCO3 24 mmol/L (22-26) Arterial Bld O2 Saturation (Calc) 84 % (92-99) FiO2 21 % Urine Collection Type U cath Urine Color Yellow Urine Clarity Cloudy Urine pH 7.0 Urine Specific [place] 1.020 Urine Protein 100 mg/dl (NEG-TRACE) Urine Glucose (UA) Neg mg/dL (NEG) Urine Ketones (Stick) 40 mg/dL (NEG) Urine Blood Mod (NEG) Urine Nitrite Pos (NEG) Urine Bilirubin Neg (NEG) Urine Urobilinogen Dipstick 0.2 mg/dL (0.2 mg/dL) Urine Leukocyte Esterase Large (NEG) Urine RBC 1-2 /HPF (0-2) Urine WBC >40 /HPF (0-4) Urine Squamous Epithelial Cells None /LPF Urine Bacteria Many /HPF (0-FEW) Influenza Type A (Rapid) Negative (NEGATIVE) Influenza Type B (Rapid) Negative (NEGATIVE) Test 12/16/18 04:30 Troponin I Quantitative 0.182 ng/mL (0-0.055) Images EKG - sinus rhythm, 1st degree av block, delayed R progression. LWMI age undetermined CXR - no acute abn Assessment/Plan 1. NSTEMI - likely demand related. angina free. No acute EKG changes. Aspirin, beta radha, check echo, check lipids. 2. Hypoxia with elevated d dimer and questionable history of COPD - CTA chest 3. Hypertension - controlled 4. hyperlipidemia - check lipids 5. UTI - per PCP Await above and consider cardiac cath when medical issues resolved. SHAHEEN GARCIA MD 12/16/18 1639: CONSULT Assessment/Plan Pt. seen and examined. Agree with above Talent Acquisition Lead note. 68 y.o with hypoxic resp failure in the setting of fever Type 2 NSTEMI Supportive care. EKG unremarkable except for QT prolongation, monitor with repeat EKG in a.m Echo wnl. No further CV testing needed. F/u on an outpt basis. ARIES COTA APRN Dec 16, 2018 09:40 SHAHEEN GARCIA MD Dec 16, 2018 16:39
[2018-12-16] MEDS ORDERED: CONTRAST GIVEN MC PRN (10:15)
[2018-12-16] MEDS ORDERED: IOHEXOL 350 MG/ML 100 ML VIAL. IV ONE (10:30)
[2018-12-16 10:43] VITALS: BP 108/67
--- NOTE | 2018-12-16 12:35 | RAD ---
Examination: CT angiography chest HISTORY: History of elevated d-dimer, shortness of breath COMPARISON: None available TECHNIQUE: Axial CT angiographic images of the chest were performed with IV contrast. Coronal and sagittal 3-D MIP reformats are performed Exposure: One or more of the following individualized dose reduction techniques were utilized for this examination: 1. Automated exposure control 2. Adjustment of the mA and/or kV according to patient size 3. Use of iterative reconstruction technique FINDINGS: The visualized thyroid gland grossly appears unremarkable. The central airways are patent. Moderate cardiomegaly. Diffuse coronary artery calcifications. There is no evidence of filling defect identified in the main pulmonary arterial trunk and right and left main pulmonary arteries and the visualized lobar, segmental branches of the pulmonary arteries. There are multiple enlarged mediastinal lymph nodes identified with the largest measuring 4.1 cm in the subcarinal region. There is a 2.4 cm soft tissue density identified in the right infrahilar region and a 1.6 cm soft tissue density identified in the left infrahilar region probably hilar lymph nodes. Moderate lung emphysematous changes. Patchy bibasilar lung airspace opacity likely atelectasis or infiltrates. Apical lung scarring changes. There is diffuse decreased attenuation noted throughout the liver likely hepatic steatosis. The visualized spleen, adrenals grossly appears unremarkable. Moderate degenerative changes thoracic spine. IMPRESSION: 1. No evidence of pulmonary embolism. 2. Multiple enlarged mediastinal and bilateral hilar lymph nodes identified. Differential includes reactive lymphadenopathy or metastasis. 3. Patchy bibasilar lung airspace opacities likely pneumonia or atelectasis. Follow-up to resolution. 4. Moderate lung emphysematous changes. 5. Hepatic steatosis. 6. Cardiomegaly with coronary artery calcifications. Electronically signed by: Paolo Casas MD (12/16/2018 12:31 PM) [place] [id number]
[2018-12-16 14:45] VITALS: BP 106/66
[2018-12-16] MEDS: HYDROcodone/APAP 7.5/325MG 1 TAB TABLET PO SCH ×2 (14:53→22:33)
[2018-12-16] MEDS: SENNOSIDES/DOCUSATE 8.6/50MG TABLET. PO SCH ×2 (14:53→22:32)
--- NOTE | 2018-12-16 16:03 | CARD ---
MR#: [id number] Date of Study: 12/16/2018 Ordering Physician: ARIES COTA, Referring Physician: ARMOND PEREIRA Tech: Gem Nice RDCS APPROVED REPORT EXAM: Two-dimensional and M-mode echocardiogram with Doppler and color Doppler. Other Information Quality : Fair INDICATION Elevated Troponin 2D DIMENSIONS RVDd2.6 (2.9-3.5cm)Left Atrium(2D)3.4 (1.6-4.0cm) IVSd1.0 (0.7-1.1cm)Aortic Root(2D)2.6 (2.0-3.7cm) LVDd4.2 (3.9-5.9cm)LVOT Diameter2.3 (1.8-2.4cm) PWd1.0 (0.7-1.1cm)LVDs2.8 (2.5-4.0cm) FS (%) 32.9 %SV48.4 ml LVEF(%)60.0 (>50%) Aortic Valve AoV Peak Mick.137.8cm/sAoV VTI21.6cm AO Peak GR.7.6mmHgLVOT Peak Mick.102.5cm/s LVOT VTI 19.21cmAO Mean GR.4mmHg CARMELA (VMAX)3.69ky2YVK (VTI)3.80cm2 Mitral Valve MV E Ztbxmiac97.8cm/sMV DECEL RLPA605mk MV A Uqlzysbo62.9cm/sE/A Ratio0.8 Tricuspid Valve TR P. Aionwhet618ka/sRAP YZBQMAKV9ywSx TR Peak Gr.05wiIaEFAL48tnVu Pulmonary Vein S1 Gkmnwghs95.2cm/sD2 Klluzdwn93.9cm/s LEFT VENTRICLE The left ventricle is normal size. There is normal left ventricular wall thickness. The left ventricu lar systolic function is normal. The Ejection Fraction is 55-60%. There is normal LV segmental wall m otion. Transmitral Doppler flow pattern is Grade I-abnormal relaxation pattern. RIGHT VENTRICLE The right ventricle is normal size. The right ventricular systolic function is normal. ATRIA The left atrium size is normal. The right atrium size is normal. The interatrial septum is intact wit h no evidence for an atrial septal defect or patent foramen ovale as noted on 2-D or Doppler imaging. AORTIC VALVE The aortic valve is calcified but opens well. Doppler and Color Flow revealed no significant aortic r egurgitation. There is no significant aortic valvular stenosis. MITRAL VALVE The mitral valve is calcified but opens well. There is no evidence of mitral valve prolapse. There is no mitral valve stenosis. Doppler and Color-flow revealed trace mitral regurgitation. TRICUSPID VALVE The tricuspid valve is normal in structure and function. Doppler and Color Flow revealed trace tricus pid regurgitation. The PA pressure was estimated at 27 mmHg. There is no tricuspid valve stenosis. PULMONIC VALVE The pulmonic valve is not well visualized. Doppler and Color Flow revealed no pulmonic valvular regur gitation. There is no pulmonic valvular stenosis. GREAT VESSELS The aortic root is normal in size. The ascending aorta is normal in size. The IVC is normal in size a nd collapses >50% with inspiration. PERICARDIAL EFFUSION There is no evidence of significant pericardial effusion. Critical Notification Critical Value: No <Conclusion> The left ventricular systolic function is normal. The Ejection Fraction is 55-60%. There is normal LV segmental wall motion. Transmitral Doppler flow pattern is Grade I-abnormal relaxation pattern. Trace mitral regurgitation. Trace tricuspid regurgitation. The PA pressure was estimated at 27 mmHg. There is no evidence of significant pericardial effusion. Signed by : Tong Daugherty, Electronically Approved : 12/16/2018 16:02:58
[2018-12-16] MEDS ORDERED: VANCOMYCIN PER PHARMACY MC PRN (16:15)
--- NOTE | 2018-12-16 16:26 | EKG ---
[address] [id number] Test Date: 2018-12-15 Test Time: 22:36:18 Pat Name: JOHANNY MARRUFO Department: Room: 107 A Gender: F Learning Operations Specialist: : 1950 Requested By: KENYETTA MONTANO Order Number: [id number] Reading MD: Kasi Hart MD Measurements Intervals [place] Rate: 120 P: -26 ND: 148 QRS: 129 QRSD: 82 T: 134 QT: 338 QTc: 483 Interpretive Statements SINUS TACHYCARDIA PROLONGED QT LIMB LEAD MISPLACEMENT Electronically Signed On 12-16-2018 16:32:09 MASH FILTER OPERATOR by Kasi Hart MD
--- NOTE | 2018-12-16 17:00 | RAD ---
Examination: Bilateral Lower Extremity Venous Doppler Ultrasound History: pain Comparison: None Procedure: Mcgowan scale, color flow 2D and spectal waveform analysis images are obtained with and without compression in the area of the common femoral vein, superficial femoral vein - femoral vein junction, main femoral vein (superficial femoral vein) and popliteal vein. Veins of the proximal calf are also imaged. Findings: There is normal duplex flow, color flow and compressibility of all visualized vein segments. No evidence of deep venous thrombus is present. The right posterior tibialis vein is hard to visualize Impression: No evidence of DVT in the visualized bilateral lower extremity venous system. Electronically signed by: Paolo Casas MD (12/16/2018 4:57 PM) [place] [id number]
[2018-12-16] MEDS: PIPERACILLIN/TAZOBACTAM 3.375 GM in IV NORMAL SALINE 50ML 50 ML IV SCH (17:15)
--- NOTE | 2018-12-16 17:29 | HP ---
ADMIT DATE: 12/16/2018 HISTORY OF PRESENT ILLNESS: The patient is a 68-year-old female patient, a resident at [facility], who was brought here to the Emergency Room with fever, chills, fatigue, spillage and increased dyspnea. She apparently has been a resident at [facility] and [facility] since 12/25/2015. She has significant medical history of multiple sclerosis, dysphagia, recurrent aspiration, generalized muscle weakness, opacity, respiratory failure with hypoxia and hypercapnia, also chronic constipation, urinary retention, hyperlipidemia and peripheral neuropathy. She follows with Dr. Good and she apparently has recurrent episodes of urinary tract infection. Apparently, her temperature at [facility] was up to 102 degrees Fahrenheit and in fact when she arrived to the Emergency Room, her temperature was 101.8. She was extensively investigated. She has had a chest x-ray, which basically showed no acute abnormalities seen and given that her D-dimer was high, she underwent CT angio of the chest, which showed the patient has patchy bibasilar lung airspace opacities, likely atelectasis, infiltrate, apical lung scarring changes. She has moderate lung emphysematous changes. Visualized spleen and adrenals grossly appear unremarkable. Her urinalysis showed the urine was yellow, cloudy, positive for nitrites and there was large amount of leukocyte esterase and more than 40 wbc's and many bacteria. The patient was admitted with urinary tract infection. She has also hypoxic respiratory failure and possible bilateral lower lobe infiltrate. PAST MEDICAL HISTORY: Significant for hypertension, hyperlipidemia, longstanding multiple sclerosis, peripheral neuropathy, chronic constipation, osteoarthritis, urinary retention, incontinence, recurrent UTI. PAST SURGICAL HISTORY: Significant for right cataract extraction, appendectomy and also hysterectomy. ALLERGIES: She has no known drug allergies. MEDICATIONS: She is currently on following medications: She is on nitrofurantoin monohydrate 100 mg twice a day, aspirin 325 mg once a day, Meloxicam 15 mg daily, hydrocodone/APAP 7.5/325 one tablet every 8 hours, Tylenol 650 mg every 4 hours, gabapentin 300 mg 3 times a day, bisacodyl 10 mg suppositories rectally daily p.r.n. for constipation, Colace 100 mg twice a day, magnesium hydroxide for milk of magnesia 30 mL p.o. daily for constipation, phosphate enema 133 mL rectally daily p.r.n. for constipation, Senna 1 tablet 3 times a day, tolterodine (Detrol-LA) 4 mg at bedtime, Myrbetriq 25 mg twice a day. FAMILY HISTORY: She has one brother and older sister with heart disease. Both her parents are . SOCIAL HISTORY: She is , has 2 children. She is an ex-smoker, does not eat or drink beer, but has not drunk a long time. She does not use any drugs. PHYSICAL EXAMINATION: GENERAL: On arrival to the Emergency Room, the patient looked pale, but no jaundice, cyanosis, or thyromegaly. No jugular venous distension. No limb edema. VITAL SIGNS: Her heart rate was 123, blood pressure was 119/60, temperature 101.8, respiratory rate was 18 and oxygen saturation was 90% on 2 liters of oxygen. HEAD, EYES, EARS, NOSE AND THROAT: Showed normocephalic, atraumatic. NECK: Supple. HEART: Showed normal first and second heart sounds with no gallop, rub or murmur. CHEST: Clear to auscultation. No crepitation or rhonchi. ABDOMEN: Distended, soft, nontender. No guarding or rigidity. No organomegaly. Hernial orifice intact. Bowel sounds normal. NEUROLOGIC: She is awake, alert, responding appropriately. All cranial nerves intact. She moves her upper extremities to much good extent than lower extremities, although she said that she is able to walk with a walker. LABORATORY DATA: While in the Emergency Room, she had lab work done, showed that her white cell count was 10,000, hemoglobin 14.5, hematocrit 43.3, MCV 90 and platelet count of 179,000 with normal manual differential. Her serum sodium was 138, potassium 3.5, chloride 103, bicarbonate 27, anion gap of 8, BUN 18, creatinine 0.7, estimated GFR was 83 mL per minute. Her glucose was 190, lactic acid is 1.9. Calcium was 8.4, magnesium was 1.7. Total bilirubin, AST, ALT, alkaline phosphatase were normal. Her first set of troponin was 0.129 and total protein was 8.3, albumin was 3.1. Lipase was 107. Her prothrombin time was 9.8, INR of 1, aPTT was 23. D-dimer was 1.36. Her urinalysis showed the urine was yellow, cloudy with a pH of 7, specific gravity of 1.020. There was large amount of protein, negative for glucose, moderate amount of ketones, moderate amount of blood, positive for nitrites, large amount of leukocyte esterase, 1-2 rbc's, more than 40 wbc's, and many bacteria. Her influenza A and B were negative. Her nasal screen for MRSA by PCR was negative. DIAGNOSTIC DATA: Her chest x-ray showed the cardiac silhouette is mildly enlarged. The thoracic aorta is mildly tortuous. Atherosclerotic calcification of thoracic aorta is seen. No acute pulmonary infiltrate is noted. No pneumothorax or pleural effusion is seen. Degenerative changes are seen involving the thoracic spine and both shoulders. Her CT angiography of the chest showed moderate amount of cardiomegaly, diffuse coronary artery calcification. There is no evidence of filling defects identified in the main pulmonary arterial trunk and right and left main pulmonary arteries and visualized lobar segmental branches of the pulmonary arteries. There are multiple enlarged mediastinal lymph nodes identified with the largest measuring 4.1 cm in subcarinal region. There is ____ cm soft tissue density identified in the right infrahilar region and 1.6 cm soft tissue density identified in the left infrahilar region probably hilar lymph node. The patient has moderate lung emphysematous changes, patchy bibasilar lung airspace opacity, likely atelectasis or infiltrate apical lung scarring changes. There is diffuse decreased attenuation noted throughout the liver, likely hepatic steatosis. The visualized spleen and adrenals grossly appear unremarkable; moderate degenerative changes, thoracic spine. PLAN: My plan is to change antibiotic to vancomycin and Zosyn, as she probably has also healthcare-associated pneumonia and the antibiotic should cover also her urinary tract infection. ARMOND PEREIRA MD DR: HONORIO/nina JOB#: [id number] / [id number]
[2018-12-16] MEDS ORDERED: VANCOMYCIN 2 GM in IV NORMAL SALINE 500ML 500 ML IV ONE (18:00)
[2018-12-16] MEDS: VANCOMYCIN 1.5 GM in IV NORMAL SALINE 500ML 500 ML IV SCH (18:11)
[2018-12-16 18:42] VITALS: BP 94/53
[2018-12-16] MEDS: LACTOBACILLUS RHAMNOSUS GG 1 CAPSULE. PO SCH (22:33)
[2018-12-16 23:02] VITALS: BP 117/67
[2018-12-17] MEDS: PIPERACILLIN/TAZOBACTAM 3.375 GM in IV NORMAL SALINE 50ML 50 ML IV SCH ×3 (01:03→16:08)
[2018-12-17 05:11] VITALS: BP 110/69
[2018-12-17] MEDS: IPRATRPIUM/ALBUTEROL 0.5/2.5MG 3 ML NEBU. NEB SCH (05:44)
[2018-12-17] MEDS: HYDROcodone/APAP 7.5/325MG 1 TAB TABLET PO SCH ×3 (05:55→20:53)
[2018-12-17 06:27] LABS: BASO % 0 % (0-3); EOS % 0 % (0-3); HEMATOCRIT 37.4 % (36.0-47.0); HEMOGLOBIN 12.3 g/dL (12.0-15.5); LYMPH # 2.4 x10^3/uL (1.0-4.8); LYMPH % 31 % (24-48); MEAN CORPUSCULAR HEMOGLOBIN 30 pg (25-35); MEAN CORPUSCULAR HGB CONC 33 g/dL (31-37); MEAN CORPUSCULAR VOLUME 91 fL (79-100); MONO # 0.4 x10^3/uL (0.0-1.1); MONO % 5 % (0-9); NEUT # 4.9 x10^3uL (1.8-7.7); NEUT % 63 % (31-73); PLATELET COUNT 161 x10^3/uL (140-400); RED CELL DISTRIBUTION WIDTH 13.3 % (11.5-14.5); WHITE BLOOD COUNT 7.7 x10^3/uL (4.0-11.0)
[2018-12-17 06:41] LABS: ALBUMIN 2.6 g/dL (3.4-5.0); ALBUMIN/GLOBULIN RATIO 0.5 (1.0-1.7); CALCIUM 8.3 mg/dL (8.5-10.1); CREATININE 0.7 mg/dL (0.6-1.0); GFR 83.2; POTASSIUM 3.6 mmol/L (3.5-5.1); TOTAL BILIRUBIN 0.2 mg/dL (0.2-1.0); TOTAL PROTEIN 7.4 g/dL (6.4-8.2)
[2018-12-17] MEDS: methylPREDNISolone SOD SUCC PF 40 MG/ML VIAL. IV SCH (08:22)
[2018-12-17] MEDS: LACTOBACILLUS RHAMNOSUS GG 1 CAPSULE. PO SCH ×2 (08:22→20:52)
[2018-12-17] MEDS: DOCUSATE SODIUM 100 MG CAPSULE PO SCH ×2 (08:23→20:52)
[2018-12-17] MEDS: MELOXICAM 15 MG TABLET. PO SCH (08:23)
[2018-12-17] MEDS: MIRABEGRON 25 MG TAB.ER.24H PO SCH ×2 (08:23→20:52)
[2018-12-17] MEDS: ASPIRIN 325 MG TABLET PO SCH (08:23)
[2018-12-17] MEDS: GABAPENTIN 300 MG CAPSULE. PO SCH ×3 (08:23→20:52)
[2018-12-17] MEDS: SENNOSIDES/DOCUSATE 8.6/50MG TABLET. PO SCH ×3 (08:23→20:52)
[2018-12-17] MEDS: ENOXAPARIN 40 MG/0.4 ML SYRINGE. SQ SCH (08:23)
[2018-12-17] MEDS: OXYBUTYNIN CHLORIDE 5 MG TABLET PO SCH ×3 (08:23→20:52)
--- NOTE | 2018-12-17 09:24 | PDOC ---
PROGRESS NOTES Diagnosis Problem Problems Medical Problems: (1) Fever Status: Acute Assessment Problems Medical Problems: (1) Fever Status: Acute 1. NSTEMI - type II. angina free. No acute EKG changes. Normal LV EF and wall motion by echo. Continue aspirin, beta radha, check echo, await lipid panel. Consider outpatient MPI when pulm stable. 2. Acute hypoxic respiratory failure - CTA neg for PE, prob pneumonia. Per pcp 3. Hypertension - controlled 4. hyperlipidemia - pending 5. UTI - per PCP Continue supportive care, RF reduction, outpatient follow up and possible MPI. Subjective no chest pain, no dyspnea, no palpitations, no lightheadedness Objective Vital Signs Date Time Temp Pulse Resp B/P (MAP) Pulse Ox O2 Delivery O2 Flow Rate FiO2 12/17/18 08:52 Nasal Cannula 2.0 12/17/18 07:17 2 12/17/18 05:55 19 12/17/18 05:11 97.7 81 110/69 (83) Intake and Output 12/17/18 07:00 Intake Total 1900 ml Output Total 1600 ml Balance 300 ml Intake Oral 1350 ml IV Total 550 ml Output Urine Total 1600 ml # Voids 1 Abdomen: Normal bowel sounds, Soft, No tenderness Heart: Normal S1, Normal S2, Other (no gallops, clicks or rubs) Extremities: No cyanosis, Other (1+ edema) General: Alert, Oriented X3, Cooperative, No acute distress HEENT: Atraumatic, EOMI, Mucous membr. moist/pink Lungs: Other (RML crackles, otherwise clear) Neuro: Normal speech Psych/Mental Status: Mental status NL, Mood NL Review of Relevant I have reviewed the following items vandana (where applicable) has been applied. Labs Laboratory Tests Test 12/15/18 22:17 12/15/18 22:35 12/15/18 23:40 12/15/18 23:59 White Blood Count 10.0 x10^3/uL (4.0-11.0) Red Blood Count 4.79 x10^6/uL (3.50-5.40) Hemoglobin 14.5 g/dL (12.0-15.5) Hematocrit 43.3 % (36.0-47.0) Mean Corpuscular Volume 90 fL (79-100) Mean Corpuscular Hemoglobin 30 pg (25-35) Mean Corpuscular Hemoglobin Concent 33 g/dL (31-37) Red Cell Distribution Width 13.5 % (11.5-14.5) Platelet Count 179 x10^3/uL (140-400) Neutrophils (%) (Auto) 83 % (31-73) Lymphocytes (%) (Auto) 12 % (24-48) Monocytes (%) (Auto) 3 % (0-9) Eosinophils (%) (Auto) 1 % (0-3) Basophils (%) (Auto) 0 % (0-3) Neutrophils # (Auto) 8.3 x10^3uL (1.8-7.7) Lymphocytes # (Auto) 1.2 x10^3/uL (1.0-4.8) Monocytes # (Auto) 0.3 x10^3/uL (0.0-1.1) Eosinophils # (Auto) 0.1 x10^3/uL (0.0-0.7) Basophils # (Auto) 0.0 x10^3/uL (0.0-0.2) Erythrocyte Sedimentation Rate 42 (0-25) Prothrombin Time 9.8 SEC (9.4-11.4) Prothromb Time International Ratio 1.0 (0.9-1.1) Activated Partial Thromboplast Time 23 SEC (23-33) D-Dimer (Margarette) 1.36 mg/L (0.00-0.50) Sodium Level 138 mmol/L (136-145) Potassium Level 3.5 mmol/L (3.5-5.1) Chloride Level 103 mmol/L (98-107) Carbon Dioxide Level 27 mmol/L (21-32) Anion Gap 8 (6-14) Blood Urea Nitrogen 18 mg/dL (7-20) Creatinine 0.7 mg/dL (0.6-1.0) Estimated GFR (Cockcroft-Gault) 83.2 Glucose Level 190 mg/dL (70-99) Lactic Acid Level 1.9 mmol/L (0.4-2.0) Calcium Level 8.4 mg/dL (8.5-10.1) Magnesium Level 1.7 mg/dL (1.8-2.4) Total Bilirubin 0.5 mg/dL (0.2-1.0) Direct Bilirubin 0.1 mg/dL (0.0-0.2) Aspartate Amino Transf (AST/SGOT) 21 U/L (15-37) Alanine Aminotransferase (ALT/SGPT) 11 U/L (14-59) Alkaline Phosphatase 60 U/L (46-116) Creatine Kinase 32 U/L (26-192) Troponin I Quantitative 0.129 ng/mL (0-0.055) MY-Dym-P-Type Natriuretic Peptide 92 pg/mL (0-124) Total Protein 8.3 g/dL (6.4-8.2) Albumin 3.1 g/dL (3.4-5.0) Lipase 107 U/L (73-393) Thyroid Stimulating Hormone (TSH) 0.416 uIU/mL (0.358-3.740) Blood Gas pH 7.39 (7.35-7.45) Blood Gas PCO2 40 mmHg (35-45) Blood Gas PO2 54 mmHg (80-100) Blood Gas HCO3 24 mmol/L (22-26) Arterial Bld O2 Saturation (Calc) 84 % (92-99) FiO2 21 % Urine Collection Type U cath Urine Color Yellow Urine Clarity Cloudy Urine pH 7.0 Urine Specific [place] 1.020 Urine Protein 100 mg/dl (NEG-TRACE) Urine Glucose (UA) Neg mg/dL (NEG) Urine Ketones (Stick) 40 mg/dL (NEG) Urine Blood Mod (NEG) Urine Nitrite Pos (NEG) Urine Bilirubin Neg (NEG) Urine Urobilinogen Dipstick 0.2 mg/dL (0.2 mg/dL) Urine Leukocyte Esterase Large (NEG) Urine RBC 1-2 /HPF (0-2) Urine WBC >40 /HPF (0-4) Urine Squamous Epithelial Cells None /LPF Urine Bacteria Many /HPF (0-FEW) Influenza Type A (Rapid) Negative (NEGATIVE) Influenza Type B (Rapid) Negative (NEGATIVE) Test 12/16/18 03:30 12/16/18 04:30 12/16/18 10:39 12/17/18 06:06 Nasal Screen MRSA (PCR) Negative (Negative) Troponin I Quantitative 0.182 ng/mL (0-0.055) 0.122 ng/mL (0-0.055) Triglycerides Level 110 mg/dL (0-150) Cholesterol Level 153 mg/dL (0-200) LDL Cholesterol, Calculated 104 mg/dL (0-100) VLDL Cholesterol, Calculated 22 mg/dL (0-40) Non-HDL Cholesterol Calculated 126 mg/dL (0-129) HDL Cholesterol 27 mg/dL (40-60) Cholesterol/HDL Ratio 5.0 White Blood Count 7.7 x10^3/uL (4.0-11.0) Red Blood Count 4.10 x10^6/uL (3.50-5.40) Hemoglobin 12.3 g/dL (12.0-15.5) Hematocrit 37.4 % (36.0-47.0) Mean Corpuscular Volume 91 fL (79-100) Mean Corpuscular Hemoglobin 30 pg (25-35) Mean Corpuscular Hemoglobin Concent 33 g/dL (31-37) Red Cell Distribution Width 13.3 % (11.5-14.5) Platelet Count 161 x10^3/uL (140-400) Neutrophils (%) (Auto) 63 % (31-73) Lymphocytes (%) (Auto) 31 % (24-48) Monocytes (%) (Auto) 5 % (0-9) Eosinophils (%) (Auto) 0 % (0-3) Basophils (%) (Auto) 0 % (0-3) Neutrophils # (Auto) 4.9 x10^3uL (1.8-7.7) Lymphocytes # (Auto) 2.4 x10^3/uL (1.0-4.8) Monocytes # (Auto) 0.4 x10^3/uL (0.0-1.1) Eosinophils # (Auto) 0.0 x10^3/uL (0.0-0.7) Basophils # (Auto) 0.0 x10^3/uL (0.0-0.2) Sodium Level 140 mmol/L (136-145) Potassium Level 3.6 mmol/L (3.5-5.1) Chloride Level 106 mmol/L (98-107) Carbon Dioxide Level 26 mmol/L (21-32) Anion Gap 8 (6-14) Blood Urea Nitrogen 10 mg/dL (7-20) Creatinine 0.7 mg/dL (0.6-1.0) Estimated GFR (Cockcroft-Gault) 83.2 BUN/Creatinine Ratio 14 (6-20) Glucose Level 173 mg/dL (70-99) Calcium Level 8.3 mg/dL (8.5-10.1) Total Bilirubin 0.2 mg/dL (0.2-1.0) Aspartate Amino Transf (AST/SGOT) 22 U/L (15-37) Alanine Aminotransferase (ALT/SGPT) 11 U/L (14-59) Alkaline Phosphatase 48 U/L (46-116) Total Protein 7.4 g/dL (6.4-8.2) Albumin 2.6 g/dL (3.4-5.0) Albumin/Globulin Ratio 0.5 (1.0-1.7) Microbiology 12/15/18 Blood Culture - Preliminary, Resulted NO GROWTH AFTER 1 DAY... Medications Current Medications Aspirin (Children'S Aspirin) 324 mg 1X ONCE PO Last administered on 12/15/18at 23:20; Start 12/15/18 at 22:30; Stop 12/15/18 at 22:37; Status DC Lactated Ringer's 1,000 ml @ 1,000 mls/hr Q1H IV Last administered on at 23:21; Start 12/15/18 at 22:30; Stop 12/15/18 at 23:29; Status DC Methylprednisolone Sodium Succinate (SOLU-Medrol 125MG VIAL) 125 mg 1X ONCE IV Last administered on 12/15/18at 23:22; Start 12/15/18 at 22:30; Stop 12/15/18 at 22:37; Status DC Ceftriaxone Sodium 1 gm/ Sodium Chloride 50 ml @ 100 mls/hr 1X ONCE IV Last administered on 12/15/18at 23:51; Start 12/15/18 at 22:30; Stop 12/16/18 at 16:15 ; Status DC Vancomycin HCl 1 gm/Sodium Chloride 250 ml @ 250 mls/hr 1X ONCE IV ; Start 10/21 at 22:30; Stop 12/15/18 at 22:38; Status DC Vancomycin HCl 2 gm/Sodium Chloride 500 ml @ 250 mls/hr 1X ONCE IV Last administered on 12/16/18at 00:50; Start 12/15/18 at 22:45; Stop 12/16/18 at 00:44 ; Status DC Albuterol/ Ipratropium (Duoneb) 3 ml 1X ONCE NEB Last administered on at 00:00; Start 12/15/18 at 23:00; Stop 12/15/18 at 23:03; Status DC Sodium Chloride 50 ml @ As Directed STK-MED ONCE .ROUTE ; Start 12/15/18 at 23: 15; Stop 12/15/18 at 23:16; Status DC Enoxaparin Sodium (Lovenox 80mg Syringe) 80 mg 1X ONCE SQ Last administered on 12/15/18at 23:53; Start 12/15/18 at 23:30; Stop 12/15/18 at 23:31; Status DC Ceftriaxone Sodium (Rocephin) 1 gm STK-MED ONCE .ROUTE ; Start 12/15/18 at 23:15 ; Stop 12/15/18 at 23:16; Status DC Ondansetron HCl (Zofran) 4 mg PRN Q4HRS PRN IV NAUSEA/VOMITING; Start 12/16/18 at 01:15; Stop 12/17/18 at 01:14; Status DC Acetaminophen (Tylenol) 650 mg PRN Q4HRS PRN PO FEVER; Start 12/16/18 at 01:15 ; Stop 12/16/18 at 16:35; Status DC Albuterol/ Ipratropium (Duoneb) 3 ml RTQID NEB Last administered on 12/17/18at 05:44; Start 12/16/18 at 08:00; Stop 12/17/18 at 07:59; Status DC Enoxaparin Sodium (Lovenox 100mg Syringe) 90 mg BID SQ Last administered on at 08:43; Start 12/16/18 at 09:00; Stop 12/16/18 at 16:15; Status DC Aspirin (Children'S Aspirin) 81 mg DAILY08 PO Last administered on 12/16/18at 08 :44; Start 12/16/18 at 08:00; Stop 12/16/18 at 10:54; Status DC Magnesium Sulfate 50 ml @ 25 mls/hr 1X ONCE IV Last administered on 12/16/18at 03:34; Start 12/16/18 at 02:00; Stop 12/16/18 at 16:15; Status DC Methylprednisolone Sodium Succinate (SOLU-Medrol 125MG VIAL) 40 mg DAILY IV Last administered on 12/16/18at 08:44; Start 12/16/18 at 09:00; Stop 12/17/18 at 07:59; Status DC Ceftriaxone Sodium 1 gm/ Sodium Chloride 50 ml @ 100 mls/hr Q24H IV ; Start at 21:00; Stop 12/16/18 at 21:00; Status DC Albuterol/ Ipratropium (Duoneb) 3 ml STK-MED ONCE .ROUTE ; Start 12/16/18 at 05: 03; Stop 12/16/18 at 05:04; Status DC Aspirin (Melida Aspirin) 325 mg DAILYWBKFT PO Last administered on 12/17/18at 08: 23; Start 12/16/18 at 08:00 Gabapentin (Neurontin) 300 mg TID PO Last administered on 12/17/18at 08:23; Start 12/16/18 at 09:00 Acetaminophen/ Hydrocodone Bitart (Lortab 7.5/325) 1 tab PRN Q6HRS PRN PO PAIN ; Start 12/16/18 at 06:30 Acetaminophen/ Hydrocodone Bitart (Lortab 7.5/325) 1 tab Q8HRS PO Last administered on 12/17/18at 05:55; Start 12/16/18 at 14:00 Mirabegron (Myrbetriq) 25 mg BID PO Last administered on 12/17/18at 08:23; Start 12/16/18 at 09:00 Sodium Biphosphate/ Sodium Phosphate (Fleet Adult) 133 ml PRN DAILY PRN RC CONSTIPATION; Start 12/16/18 at 06:30 Acetaminophen (Tylenol) 650 mg PRN Q4HRS PRN PO PAIN / TEMP; Start 12/16/18 at 06:30 Bisacodyl (Dulcolax Supp) 10 mg PRN DAILY PRN RC CONSTIPATION; Start 12/16/18 at 06:30 Docusate Sodium (Colace) 100 mg BID PO Last administered on 12/17/18at 08:23; Start 12/16/18 at 09:00 Magnesium Hydroxide (Milk Of Magnesia) 2,400 mg PRN DAILY PRN PO CONSTIPATION; Start 12/16/18 at 06:30 Meloxicam (Mobic) 15 mg DAILY PO Last administered on 12/17/18at 08:23; Start at 09:00 Nitrofurantoin Macrocrystals (Macrobid) 100 mg BID PO Last administered on 12/16 08:43; Start 12/16/18 at 09:00; Stop 12/16/18 at 17:54; Status DC Senna/Docusate Sodium (Senna Plus) 8.6 tab TID PO Last administered on at 08:44; Start 12/16/18 at 09:00; Stop 12/16/18 at 10:55; Status DC Oxybutynin Chloride (Ditropan) 5 mg [id number] PO Last administered on 12/17/18at 08 :23; Start 12/16/18 at 09:00 Iohexol (Omnipaque 350 Mg/ml) 100 ml 1X ONCE IV Last administered on at 10:29; Start 12/16/18 at 10:30; Stop 12/16/18 at 10:31; Status DC Info (Do NOT chart on this entry -- for MONITORING) 1 each PRN DAILY PRN MC SEE COMMENTS; Start 12/16/18 at 10:15; Stop 12/18/18 at 10:14 Senna/Docusate Sodium (Senna Plus) 1 tab TID PO Last administered on 12/17/18at 08:23; Start 12/16/18 at 14:00 Lactobacillus Rhamnosus (Culturelle) 1 cap BID PO Last administered on at 08:22; Start 12/16/18 at 21:00 Piperacillin Sod/ Tazobactam Sod 3.375 gm/Sodium Chloride 50 ml @ 100 mls/hr Q8H IV Last administered on 12/17/18at 08:26; Start 12/16/18 at 17:00 Vancomycin HCl (Vanco Per Pharmacy) 1 each PRN DAILY PRN MC SEE COMMENTS; Start 12/16/18 at 16:15 Vancomycin HCl 2 gm/Sodium Chloride 500 ml @ 250 mls/hr 1X ONCE IV ; Start at 18:00; Stop 12/16/18 at 19:59; Status Cancel Vancomycin HCl 1.5 gm/Sodium Chloride 500 ml @ 250 mls/hr Q18H IV Last administered on 12/16/18at 18:11; Start 12/16/18 at 18:00 Vancomycin HCl (Vancomycin Trough Level) 1 each 1X ONCE MC ; Start 12/17/18 at 11:30; Stop 12/17/18 at 11:31 Enoxaparin Sodium (Lovenox 40mg Syringe) 40 mg Q24H SQ Last administered on at 08:23; Start 12/17/18 at 09:00 Methylprednisolone Sodium Succinate (SOLU-Medrol 40MG VIAL) 40 mg DAILY IV Last administered on 12/17/18at 08:22; Start 12/17/18 at 09:00 Active Scripts Active Reported Milk Of Magnesia (Magnesium Hydroxide) 2,400 Mg/10 Ml Oral.susp 2,400 Mg PO PRN DAILY PRN Hydrocodone-Apap 7.5-325 (Hydrocodone Bit/Acetaminophen) 1 Each Tablet 1 Tab PO PRN Q6HRS PRN Enema Ready To Use (Na Phos,M-B/Na Phos,Di-Ba) 133 Ml Enema 133 Ml RC PRN DAILY PRN Bisacodyl 10 Mg Supp.rect 10 Mg RC PRN DAILY PRN Tylenol (Acetaminophen) 325 Mg Capsule 650 Mg PO PRN Q4HRS PRN Detrol La (Tolterodine Tartrate) 4 Mg Cap.er.24h 4 Mg PO QHS Senna (Sennosides) 8.6 Mg Tablet 8.6 Mg PO TID Myrbetriq (Mirabegron) 25 Mg Tab.er.24h 25 Mg PO BID Meloxicam 15 Mg Tablet 15 Mg PO DAILY Macrobid 100 Mg Capsule (Nitrofurantoin Monohyd/M-Cryst) 100 Mg Capsule 100 Mg PO BID Hydrocodone-Apap 7.5-325 (Hydrocodone Bit/Acetaminophen) 1 Each Tablet 1 Tab PO Q8HRS Gabapentin (Gabapentin) 300 Mg Capsule 300 Mg PO TID Docusate Sodium 100 Mg Capsule 100 Mg PO BID Aspirin 325 Mg Tablet 325 Mg PO DAILY Vitals/I & O Vital Sign - Last 24 Hours 12/16/18 12/16/18 12/16/18 12/16/18 10:17 10:43 14:45 15:45 Temp 97.3 97.9 Pulse 104 105 Resp 20 20 B/P (MAP) 108/67 (81) 106/66 (79) Pulse Ox 93 95 90 96 O2 Delivery Nasal Cannula Nasal Cannula Nasal Cannula Nasal Cannula O2 Flow Rate 3.0 2.5 3.0 3.0 12/16/18 12/16/18 12/16/18 12/16/18 18:42 19:59 22:33 23:02 Temp 98.3 98.2 Pulse 107 91 Resp 20 20 20 B/P (MAP) 94/53 (67) 117/67 (84) Pulse Ox 94 92 O2 Delivery Nasal Cannula Nasal Cannula Nasal Cannula Nasal Cannula O2 Flow Rate 3.0 2.0 2.0 3.0 12/16/18 12/17/18 12/17/18 12/17/18 23:39 05:11 05:45 05:55 Temp 97.7 Pulse 81 Resp 19 B/P (MAP) 110/69 (83) Pulse Ox 91 92 2 O2 Delivery Nasal Cannula Nasal Cannula Nasal Cannula O2 Flow Rate 3.0 3.0 12/17/18 12/17/18 07:17 08:52 Pulse Ox 2 O2 Delivery Nasal Cannula Nasal Cannula O2 Flow Rate 2.0 2.0 Intake and Output 12/16/18 12/16/18 12/17/18 15:00 23:00 07:00 Intake Total 840 ml 910 ml 150 ml Output Total 500 ml 1100 ml Balance 840 ml 410 ml -950 ml ARIES COTA APRN Dec 17, 2018 09:24
[2018-12-17 11:59] VITALS: BP 146/76
[2018-12-17 12:11] LABS: VANC TR 8.6 mcg/mL (10.0-20.0)
[2018-12-17] MEDS: VANCOMYCIN 1.5 GM in IV NORMAL SALINE 500ML 500 ML IV SCH (12:39)
[2018-12-17 20:18] VITALS: BP 151/88
--- NOTE | 2018-12-17 22:34 | PN ---
DATE: 12/17/2018 SUBJECTIVE: The patient is resting slightly propped up in bed, in no apparent respiratory distress. She is awake, alert, feeling generally much better. She has had a shower today and sat in a chair. PHYSICAL EXAMINATION: GENERAL: When I saw her this afternoon, she was resting slightly propped up in her bed, in no apparent distress, was slightly pale, but no jaundice, cyanosis, or thyromegaly. No jugular venous distension. No lower limb edema. VITAL SIGNS: Her heart rate was 79, blood pressure was 146/76, temperature was 97.3, respiratory rate 20, and oxygen saturation was 91% on 2 liters of oxygen. HEAD, EYES, EARS, NOSE, AND THROAT: Showed normocephalic, atraumatic. NECK: Supple. HEART: Showed normal first and second heart sounds. No gallop, rub, or murmur. CHEST: Clear to auscultation. No crepitation or rhonchi. ABDOMEN: Distended, soft, nontender. NEUROLOGIC: She is awake, alert, responding appropriately. All cranial nerves intact. She moves her upper extremities to much good extent than lower extremities. She is mostly bed bound. Her intake was 1900, output was 1600. LABORATORY DATA: Her lab work this morning showed a white cell count 7700, hemoglobin 12, hematocrit 37, MCV 91, platelet count of 161,000. Her serum sodium was 140, potassium 3.6, chloride 106, bicarbonate 26, anion gap of 8, BUN 10, creatinine 0.7, estimated GFR was 83 mL per minute. Her glucose was 173. Calcium was 8.3. Total bilirubin, AST, ALT, alkaline phosphatase were normal. The patient has 2 more sets of cardiac enzymes that were slightly elevated at 0.182 and 0.122. Her fasting lipid profile showed serum triglycerides 110, total cholesterol 153, LDL was 104, VLDL was 22, HDL cholesterol was 27, and cholesterol to HDL cholesterol ratio was 5. TSH was normal at 0.416. ASSESSMENT: 1. Healthcare-associated pneumonia. 2. Urinary tract infection. 3. Multiple sclerosis. 4. Non-ST segment elevation myocardial infarction, type 2. She has had an echocardiogram, which showed that her left ventricular systolic function is normal, ejection fraction 55-60%. There is normal left ventricular segmental wall motion. There is trace mitral regurgitation, trace tricuspid regurgitation. Pulmonary artery pressure was estimated at 27 mmHg. There is no evidence of significant pericardial effusion. PLAN: My plan is to continue with IV antibiotic in the form of vancomycin and Zosyn. Continue with steroids. Continue with nebulized albuterol and Atrovent. We will evaluate her tomorrow, and if all her cultures were negative, we will adjust her antibiotics depending on how her culture results and she can be discharged back to [facility]. ARMOND PEREIRA MD DR: HONORIO/nina JOB#: [id number] / [id number]
[2018-12-18] MEDS: PIPERACILLIN/TAZOBACTAM 3.375 GM in IV NORMAL SALINE 50ML 50 ML IV SCH ×3 (01:01→17:23)
[2018-12-18] MEDS: VANCOMYCIN 1.5 GM in IV NORMAL SALINE 500ML 500 ML IV SCH ×2 (05:50→23:44)
[2018-12-18] MEDS: HYDROcodone/APAP 7.5/325MG 1 TAB TABLET PO SCH ×3 (05:51→21:31)
[2018-12-18 06:25] VITALS: BP 134/83
[2018-12-18] MEDS: LACTOBACILLUS RHAMNOSUS GG 1 CAPSULE. PO SCH ×2 (08:51→21:31)
[2018-12-18] MEDS: OXYBUTYNIN CHLORIDE 5 MG TABLET PO SCH ×3 (08:51→21:31)
[2018-12-18] MEDS: SENNOSIDES/DOCUSATE 8.6/50MG TABLET. PO SCH ×3 (08:51→21:31)
[2018-12-18] MEDS: MELOXICAM 15 MG TABLET. PO SCH (08:51)
[2018-12-18] MEDS: MIRABEGRON 25 MG TAB.ER.24H PO SCH ×2 (08:51→21:31)
[2018-12-18] MEDS: GABAPENTIN 300 MG CAPSULE. PO SCH ×3 (08:51→21:31)
[2018-12-18] MEDS: ASPIRIN 325 MG TABLET PO SCH (08:51)
[2018-12-18] MEDS: DOCUSATE SODIUM 100 MG CAPSULE PO SCH ×2 (08:51→21:31)
[2018-12-18] MEDS: ENOXAPARIN 40 MG/0.4 ML SYRINGE. SQ SCH (08:52)
[2018-12-18] MEDS: methylPREDNISolone SOD SUCC PF 40 MG/ML VIAL. IV SCH (08:52)
[2018-12-18 10:18] VITALS: BP 115/73
[2018-12-18 14:47] VITALS: BP 134/56
[2018-12-18 19:20] VITALS: BP 131/77
--- NOTE | 2018-12-18 20:05 | PN ---
DATE: 12/18/2018 SUBJECTIVE: The patient is resting, slightly propped up in bed, in no apparent respiratory distress. She is awake, alert. On questioning her, she denied any complaint. Nursing staff stated that she had an uneventful night. PHYSICAL EXAMINATION: GENERAL: When I examined her, she looked pale, but no jaundice, cyanosis, or thyromegaly. No jugular venous distension. No limb edema. VITAL SIGNS: Her heart rate was 78, blood pressure 115/73, temperature was 98.4, respiratory rate was 20 and oxygen saturation was 93% on 2 liters of oxygen. HEAD, EYES, EARS, NOSE AND THROAT: Showed normocephalic, atraumatic. NECK: Supple. HEART: Showed normal first and second heart sounds. No gallop, rub or murmur. CHEST: Clear to auscultation. No crepitation or rhonchi. ABDOMEN: Distended, soft, nontender. NEUROLOGIC: She was awake, alert, responding appropriately. All cranial nerves intact. She moves upper extremities without difficulty. She is mostly bedbound, chair bound. She does walk with a walker with standby assist. Her intake was 1900, output was 1600. LABORATORY DATA: She had no lab work done this morning. Her urine culture has grown to 50 to 100,000 colony forming unit per mL of Escherichia coli. Sensitivity is still pending at the time of this dictation. Her blood culture is so far still negative. ASSESSMENT: 1. Healthcare-associated pneumonia. 2. Urinary tract infection. 3. Multiple sclerosis. 4. Non-ST segment elevation myocardial infarction, type 2. Apparently, she has had an echocardiogram that showed that her left ventricular function is normal. Her ejection fraction is 55-60%. PLAN: To continue the IV antibiotic in the form of vancomycin and Zosyn. Continue with steroids. Continue nebulized albuterol and Atrovent. Once we have the blood cultures tomorrow, we will be able to adjust her antibiotics to be switched orally, and she can be discharged back to [facility] if feasible. Otherwise, she will be discharged back on Friday. ARMOND PEREIRA MD DR: HONORIO/nnia JOB#: [id number] / [id number]
[2018-12-19] MEDS: PIPERACILLIN/TAZOBACTAM 3.375 GM in IV NORMAL SALINE 50ML 50 ML IV SCH ×2 (01:54→07:50)
[2018-12-19] MEDS: HYDROcodone/APAP 7.5/325MG 1 TAB TABLET PO SCH ×3 (05:29→22:14)
[2018-12-19 05:49] VITALS: BP 122/62
[2018-12-19 06:34] LABS: CALCIUM 8.4 mg/dL (8.5-10.1); CREATININE 0.7 mg/dL (0.6-1.0); GFR 83.2; POTASSIUM 3.6 mmol/L (3.5-5.1)
[2018-12-19] MEDS: MELOXICAM 15 MG TABLET. PO SCH (07:49)
[2018-12-19] MEDS: OXYBUTYNIN CHLORIDE 5 MG TABLET PO SCH ×3 (07:49→20:42)
[2018-12-19] MEDS: ASPIRIN 325 MG TABLET PO SCH (07:49)
[2018-12-19] MEDS: methylPREDNISolone SOD SUCC PF 40 MG/ML VIAL. IV SCH (07:49)
[2018-12-19] MEDS: SENNOSIDES/DOCUSATE 8.6/50MG TABLET. PO SCH ×3 (07:49→20:41)
[2018-12-19] MEDS: GABAPENTIN 300 MG CAPSULE. PO SCH ×3 (07:50→20:41)
[2018-12-19] MEDS: ENOXAPARIN 40 MG/0.4 ML SYRINGE. SQ SCH (07:50)
[2018-12-19] MEDS: MIRABEGRON 25 MG TAB.ER.24H PO SCH ×2 (07:50→20:42)
[2018-12-19] MEDS: DOCUSATE SODIUM 100 MG CAPSULE PO SCH ×2 (07:50→20:42)
[2018-12-19] MEDS: LACTOBACILLUS RHAMNOSUS GG 1 CAPSULE. PO SCH ×2 (07:50→20:42)
[2018-12-19 11:11] VITALS: BP 131/73
[2018-12-19 15:18] VITALS: BP 138/76
[2018-12-19 19:02] VITALS: BP 122/61
--- NOTE | 2018-12-19 19:27 | PN ---
DATE: 12/19/2018 SUBJECTIVE: The patient is resting slightly propped up in bed, no apparent distress. Denied any complaint. The nursing staff did not voice any concern. Her urine culture has grown Escherichia coli, sensitive to Augmentin. We actually planned to discharge her back to [facility]. Apparently, they will not able to tell her to take her back today and will come and take her on Friday. PHYSICAL EXAMINATION: GENERAL: When I examined her, she looked pale, but no jaundice, cyanosis, or thyromegaly. No jugular venous distension. No lower limb edema. VITAL SIGNS: Her heart rate was 80, blood pressure was 131/73, temperature was 97.4, respiratory rate 20, and oxygen saturation was 93% on room air. HEAD, EYES, EARS, NOSE AND THROAT: Showed normocephalic, atraumatic. NECK: Supple. HEART: Showed normal first and second sounds. No gallop, rub or murmur. CHEST: Clear to auscultation. No crepitation or rhonchi. ABDOMEN: Distended, soft, nontender. NEUROLOGIC: She was awake, alert, responding appropriately. All cranial nerves intact. She moves upper extremities with much great extent than lower extremities. She is mostly bedbound, chair bound. Her intake over the last 24 hours was 3230 and output was 750. LABORATORY DATA: As of this morning, her serum sodium was 142, potassium 3.6, chloride 106, bicarbonate 28, anion gap of 8, BUN 10, creatinine 0.7, estimated GFR was 83 mL per minute. Her glucose 114, calcium was 8.4. ASSESSMENT: 1. Healthcare-associated pneumonia. 2. Urinary tract infection. 3. Multiple sclerosis. 4. Type 2 non-ST segment elevation myocardial infarction, likely demand ischemia. The patient has had an echocardiogram that showed that her left ventricular systolic function is normal, ejection fraction 55-60%. PLAN: To discontinue IV vancomycin and Zosyn. She will be switched to oral Augmentin, continue with nebulized albuterol and Atrovent and continue with the DVT prophylaxis. ARMOND PEREIRA MD DR: HONORIO/nina JOB#: [id number] / [id number]
[2018-12-19] MEDS: AMOXICILLIN/K CLAV 875/125MG TABLET. PO SCH (20:42)
[2018-12-20] MEDS: HYDROcodone/APAP 7.5/325MG 1 TAB TABLET PO SCH ×3 (05:57→22:49)
[2018-12-20 06:17] VITALS: BP 129/81
[2018-12-20] MEDS: MIRABEGRON 25 MG TAB.ER.24H PO SCH ×2 (08:15→20:45)
[2018-12-20] MEDS: DOCUSATE SODIUM 100 MG CAPSULE PO SCH ×2 (08:16→20:46)
[2018-12-20] MEDS: LACTOBACILLUS RHAMNOSUS GG 1 CAPSULE. PO SCH ×2 (08:16→20:46)
[2018-12-20] MEDS: GABAPENTIN 300 MG CAPSULE. PO SCH ×3 (08:16→20:46)
[2018-12-20] MEDS: SENNOSIDES/DOCUSATE 8.6/50MG TABLET. PO SCH ×3 (08:16→20:46)
[2018-12-20] MEDS: ASPIRIN 325 MG TABLET PO SCH (08:16)
[2018-12-20] MEDS: AMOXICILLIN/K CLAV 875/125MG TABLET. PO SCH ×2 (08:16→20:46)
[2018-12-20] MEDS: OXYBUTYNIN CHLORIDE 5 MG TABLET PO SCH ×3 (08:16→20:46)
[2018-12-20] MEDS: predniSONE 20 MG TABLET PO SCH (08:16)
[2018-12-20] MEDS: MELOXICAM 15 MG TABLET. PO SCH (08:16)
[2018-12-20] MEDS: ENOXAPARIN 40 MG/0.4 ML SYRINGE. SQ SCH (08:17)
[2018-12-20 10:53] VITALS: BP 121/70
[2018-12-20 15:29] VITALS: BP 143/72
[2018-12-20 19:00] VITALS: BP 115/69
--- NOTE | 2018-12-20 19:56 | PN ---
DATE: 12/20/2018 SUBJECTIVE: The patient is resting slightly propped up in bed, no apparent distress. Awake, alert. On questioning her, denied any complaint. The nursing staff did not voice any concern. OBJECTIVE: GENERAL: On examining her, she looked well and was clearly in no apparent respiratory distress, slightly pale, but no jaundice, cyanosis, lymphadenopathy or thyromegaly. No jugular venous distension. No lower limb edema. VITAL SIGNS: Her heart rate was 88, blood pressure was 121/70, temperature was 97.6, respiratory rate was 20, and oxygen saturation was 91% on room air. HEAD, EYES, EARS, NOSE AND THROAT: Showed normocephalic, atraumatic. NECK: Supple. HEART: Showed normal first and second sounds. No gallop, rub or murmur. CHEST: Clear to auscultation. No crepitation or rhonchi. ABDOMEN: Distended, soft, nontender. NEUROLOGIC: She is awake, alert, responding appropriately. All cranial nerves intact. She moves extremities without difficulty. Her intake was 1570, output was 2250. LABORATORY DATA: Her serum sodium was 142, potassium 3.6, chloride 106, bicarbonate 28, anion gap of 8, BUN 10, creatinine 0.7. Her white cell count was 7700, hemoglobin 12, hematocrit 37, MCV 91 and platelet count of 161,000. ASSESSMENT: 1. Healthcare-associated pneumonia, resolving. 2. Urinary tract infection with growth of Escherichia coli. 3. Multiple sclerosis. 4. Type 2 [id number] elevation myocardial infarction, likely demand ischemia. PLAN: The patient will continue with oral Augmentin. She will be discharged back to [facility] tomorrow. ARMOND PEREIRA MD DR: HONORIO/nina JOB#: [id number] / [id number]
[2018-12-21] MEDS: HYDROcodone/APAP 7.5/325MG 1 TAB TABLET PO SCH (06:11)
[2018-12-21 06:32] VITALS: BP 124/57
[2018-12-21] MEDS: ASPIRIN 325 MG TABLET PO SCH (09:05)
[2018-12-21] MEDS: predniSONE 20 MG TABLET PO SCH (09:05)
[2018-12-21] MEDS: GABAPENTIN 300 MG CAPSULE. PO SCH (09:05)
[2018-12-21] MEDS: MELOXICAM 15 MG TABLET. PO SCH (09:06)
[2018-12-21] MEDS: DOCUSATE SODIUM 100 MG CAPSULE PO SCH (09:06)
[2018-12-21] MEDS: MIRABEGRON 25 MG TAB.ER.24H PO SCH (09:06)
[2018-12-21] MEDS: AMOXICILLIN/K CLAV 875/125MG TABLET. PO SCH (09:07)
[2018-12-21] MEDS: LACTOBACILLUS RHAMNOSUS GG 1 CAPSULE. PO SCH (09:07)
[2018-12-21] MEDS: SENNOSIDES/DOCUSATE 8.6/50MG TABLET. PO SCH (09:08)
[2018-12-21] MEDS: ENOXAPARIN 40 MG/0.4 ML SYRINGE. SQ SCH (09:08)
[2018-12-21] MEDS: OXYBUTYNIN CHLORIDE 5 MG TABLET PO SCH (09:08)
[2018-12-21 11:10] VITALS: BP 115/71
[2018-12-21] MEDS ORDERED: AMOX1TAB61 PO (12:39)
--- NOTE | 2018-12-21 14:15 | DS ---
DATE OF DISCHARGE: HOSPITAL COURSE: The patient is a 68-year-old female patient, a resident at [facility] in [place], who was admitted with fever, chills, fatigue and increased dyspnea. Her temperature was up to 102 degrees Fahrenheit and in fact, when she arrived to the Emergency Room, her temperature was up to 100 and 101.8. She was extensively investigated in the chest as chest x-ray showed no acute abnormalities; however, D-dimer was high, she underwent CT angio of the chest, which showed that the patient has patchy bibasilar lung airspace opacities, likely infiltrate. She has moderate lung emphysema. Her urinalysis also showed large amount of leukocyte esterase and more than 40 wbc's. She was admitted and started on IV antibiotics for healthcare-associated pneumonia as well as UTI. She was in fact started on Zosyn and vancomycin, although her blood cultures remained negative, her urine culture showed growth of Escherichia coli and she remained afebrile, hemodynamically stable and her E. coli sensitive to Augmentin. A decision was made to switch her to Augmentin and discontinue the Zyvox and vancomycin, and was discharged back to [facility] to continue the antibiotic orally. PHYSICAL EXAMINATION: GENERAL: When I saw her today, she looked well and was clearly in no apparent respiratory distress. No pallor, jaundice, cyanosis, or thyromegaly. No jugular venous distension. No limb edema. VITAL SIGNS: Her heart rate was 72, blood pressure was 115/71, temperature was 97.9, respiratory rate was 20, and oxygen saturation was 91% on room air. HEAD, EYES, EARS, NOSE AND THROAT: Showed normocephalic, atraumatic. NECK: Supple. HEART: Showed normal first and second heart sounds with no gallop, rub, or murmur. CHEST: Clear to auscultation. No crepitation or rhonchi. ABDOMEN: Distended, soft, nontender. No guarding or rigidity. No organomegaly. All hernial orifice intact daily. Bowel sounds normal. NEUROLOGIC: She was awake, alert, responding appropriately. Cranial nerves intact. She moves upper extremities to much good extent. She is mostly bedbound, chair bound. Her intake over the last 24 hours was 1270, output was 850. LABORATORY DATA: Showed a white cell count 7700, hemoglobin 12, hematocrit 37, MCV 91, and platelet count of 161,000. Her chemistry showed a serum sodium 142, potassium 3.6, chloride 106, bicarbonate 28, anion gap of 8, BUN 10, creatinine 0.7, estimated GFR was 83 mL per minute. Her glucose 114, calcium was 8.4. Her influenza A and B were negative. Her nasal screen for MRSA PCR was negative. Her toxic screen was negative. DISCHARGE MEDICATIONS: The patient was discharged back to [facility] to continue Augmentin 875 mg twice a day for 7 days, Tylenol 650 mg every 4 hours, aspirin 325 mg once a day, bisacodyl 10 mg suppositories rectally daily p.r.n. for constipation, Colace 100 mg twice a day, gabapentin 300 mg 3 times a day, hydrocodone/APAP 7.5/325 one tab to two tablets every 4 hours and she has magnesium hydroxide for milk of magnesia 30 mL p.o. daily p.r.n. for constipation, Meloxicam 15 mg daily, Myrbetriq 25 mg twice a day, phosphate enemas rectally daily p.r.n. for constipation, Senna 1 tablet 3 times a day and Detrol-LA 4 mg at bedtime for overactive bladder. FINAL DISCHARGE DIAGNOSES: 1. Healthcare-associated pneumonia, resolved. 2. Urinary tract infection with growth of Escherichia coli. 3. Multiple sclerosis. 4. Neurogenic bladder requiring indwelling Ruiz catheter. 5. Type 2 non-ST segment elevation myocardial infarct, likely due to demand ischemia. ARMOND PEREIRA MD DR: HONORIO/nina JOB#: [id number] / [id number]
== END 2018-12-21 13:55 | DRG 871 ==
LOC: ER 22:00 → 1 SOUTH 12-16 00:45
PROVIDERS: ADMIT Internal Medicine; ATTEND Internal Medicine
DX: A41.9 Sepsis, unspecified organism (principal); J18.9 Pneumonia, unspecified organism; I21.A1 Myocardial infarction type 2; J96.22 Acute and chronic respiratory failure with hypercapnia; J96.21 Acute and chronic respiratory failure with hypoxia; N39.0 Urinary tract infection, site not specified; J44.0 Chronic obstructive pulmonary disease with (acute) lower respiratory infection; E46 Unspecified protein-calorie malnutrition; Z87.440 Personal history of urinary (tract) infections; I25.10 Atherosclerotic heart disease of native coronary artery without angina pectoris; R79.1 Abnormal coagulation profile; E78.5 Hyperlipidemia, unspecified; B96.20 Unspecified Escherichia coli [E. coli] as the cause of diseases classified elsewhere; E11.9 Type 2 diabetes mellitus without complications; G35 Multiple sclerosis; I10 Essential (primary) hypertension; N31.9 Neuromuscular dysfunction of bladder, unspecified; Y95 Nosocomial condition; Z82.49 Family history of ischemic heart disease and other diseases of the circulatory system; F32.9 Major depressive disorder, single episode, unspecified; G62.9 Polyneuropathy, unspecified; G89.29 Other chronic pain; M19.90 Unspecified osteoarthritis, unspecified site; E83.42 Hypomagnesemia; Z87.891 Personal history of nicotine dependence; Z82.5 Family history of asthma and other chronic lower respiratory diseases; Z90.49 Acquired absence of other specified parts of digestive tract; Z90.710 Acquired absence of both cervix and uterus; Z98.41 Cataract extraction status, right eye; Z68.36 Body mass index [BMI] 36.0-36.9, adult
CPT/HCPCS: 36415; 36600; 71045; 71275; 80048; 80053; 80061; 80076; 80202; 81001; 82550; 82803; 83605; 83690; 83735; 83880; 84443; 84484; 85025; 85379; 85610; 85651; 85730; 87040; 87086; 87186; 87641; 87804; 93005; 93306; 93970; 94640; 96365; 96366; 96367; 96372; 96375; G0238; J0696; J1650; J2543; J2920; J2930; J3370; J3475; J7040; J7120; J7512; J7620; P9612; Q9967; 99285-25

== ENCOUNTER 2019-03-13 16:35 | Inpatient (IN) | payer MEDICARE, OTHER ==
[~2019-03-13] VITALS: Ht 157.5 cm; Wt 93.6 kg
[~2019-03-13 16:35] MED LIST changes: +ACET325C5 PO; +AMOX1TAB61 PO; +BISA10SU2 RC; +DOCU100C28 PO; +GABA-586 PO; +HYDR-2765 PO; +MAGN2400 PO; +MELO15TA23 PO; +MIRA25TA PO; +NA P RC; +NITR100C62 PO; +SENN-80 PO; +TOLT4CAP PO
[2019-03-13] MEDS ORDERED: IV NORMAL SALINE 1,000ML 1,000 ML IV SCH (16:45)
--- NOTE | 2019-03-13 16:56 | EKG ---
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
--- NOTE | 2019-03-13 17:04 | RAD ---
CT HEAD WO CONTRAST Date: 03/13/2019 4:37 PM Clinical Indication: Left-sided facial droop, stroke protocol Comparison: None. Technique: 5 mm axial tomographic images were obtained of the head without contrast. These were viewed on brain and bone windows. Findings: Mild generalized cerebral and cerebellar volume loss. Moderate nonspecific periventricular hypoattenuation, most commonly seen with chronic small vessel ischemic disease. No intra- or extra-axial mass or fluid collection. No acute hemorrhage. The ventricles are normal in size, shape, and morphology. The carter-white matter junction is normal. The basilar cisterns are patent. Small right maxillary sinus mucus retention cyst.. The visualized portions of the orbits and globes are normal. The mastoid air cells are clear. No aggressive osseous lesion or fracture. Impression: 1. No acute intracranial process. Of note, MRI is more sensitive for acute infarction less than 24 hours in age. 2. Mild cerebral volume loss. Moderate chronic small vessel ischemic disease. The findings were reported to RONAL CHOU at 03/13/2019 5:00 PM. FOR INTERNAL CODING PURPOSES RESULT CODE: (C). Electronically signed by: Nikita Hughes MD (03/13/2019 5:01 PM) [facility]
[2019-03-13] MEDS ORDERED: ACETAMINOPHEN 500 MG TABLET PO ONE (17:15)
--- NOTE | 2019-03-13 17:34 | PHYS DOC ---
Past History Past Medical History: Bronchitis, CAD, COPD, Depression, Diabetes, UTI, Other Additional Past Medical Histor: MS (RONAL CHOU DO) Past Surgical History: Appendectomy, Hysterectomy, Other (RONAL CHOU DO) Smoking: Non-smoker, Quit Greater Than 1 Year Alcohol Use: None Drug Use: None (RONAL CHOU DO) Adult General Chief Complaint Chief Complaint: WEAKNESS/GENERALIZED HPI HPI Patient is a 68-year-old female who presents with left-sided facial droop. She a resident at an assisted care facility, possibly due to complications of MS. She was diagnosed with a UTI and her first dose of trimethoprim sulfa today. Patient denies any headache. No other weakness is noted. She was last seen normal reportedly at 1445 today[] (RONAL CHOU DO) Review of Systems Review of Systems Constitutional: Denies fever or chills [] Eyes: Denies change in visual acuity, redness, or eye pain [] HENT: Denies nasal congestion or sore throat [] Respiratory: Denies cough or shortness of breath [] Cardiovascular: No chest pain or palpitations[] GI: Denies abdominal pain, nausea, vomiting, bloody stools or diarrhea [] : Denies dysuria or hematuria [] Musculoskeletal: Denies back pain or joint pain [] Integument: Denies rash or skin lesions [] Neurologic: Denies headache, focal weakness or sensory changes [] Endocrine: Denies polyuria or polydipsia [] All other systems were reviewed and found to be within normal limits, except as documented in this note. (RONAL CHOU DO) Current Medications Current Medications Current Medications Medications (Trade) Dose Ordered Sig/Estrada Start Time Stop Time Status Last Admin Dose Admin Sodium Chloride 1,000 ml @ 1,000 mls/hr Q1H 03/13/19 16:37 03/13/19 17:36 UNV (RONAL CHOU DO) Allergies Allergies Allergies Coded Allergies Type Severity Reaction Last Updated Verified No Known Drug Allergies 12/06/13 No (RONAL CHOU DO) Physical Exam Physical Exam Constitutional: Well developed, well nourished, no acute distress, non-toxic appearance. [] HENT: Normocephalic, atraumatic, bilateral external ears normal, oropharynx moist, no oral exudates, nose normal. [] Eyes: PERRLA, EOMI, conjunctiva normal, no discharge. [] Neck: Normal range of motion, no tenderness, supple, no stridor. [] Cardiovascular:Heart rate is tachycardic with a regular rhythm, no murmur [] Lungs & Thorax: Bilateral breath sounds clear to auscultation [] Abdomen: Bowel sounds normal, soft, no tenderness, no masses, no pulsatile masses. [] Skin: Warm, dry, no erythema, no rash. [] Back: No tenderness, no CVA tenderness. [] Extremities: No tenderness, no cyanosis, no clubbing, ROM intact, 2+ pretibial edema. [] Neurologic: Alert and oriented X 3, normal motor function, normal sensory function, left-sided facial droop is present. NIH SS is 1 for the left-sided facial droop[] Psychologic: Affect normal, judgement normal, mood normal. [] (RONAL CHOU DO) EKG EKG EKG shows a sinus tachycardia at 118 bpm, normal axis, no ST elevation. QTC of 501 ms, interpreted by me at 1655[] (RONAL CHOU DO) Radiology/Procedures Radiology/Procedures PROCEDURE: CT HEAD WO CONTRAST CT HEAD WO CONTRAST Date: 03/13/2019 4:37 PM Clinical Indication: Left-sided facial droop, stroke protocol Comparison: None. Technique: 5 mm axial tomographic images were obtained of the head without contrast. These were viewed on brain and bone windows. Findings: Mild generalized cerebral and cerebellar volume loss. Moderate nonspecific periventricular hypoattenuation, most commonly seen with chronic small vessel ischemic disease. No intra- or extra-axial mass or fluid collection. No acute hemorrhage. The ventricles are normal in size, shape, and morphology. The carter-white matter junction is normal. The basilar cisterns are patent. Small right maxillary sinus mucus retention cyst.. The visualized portions of the orbits and globes are normal. The mastoid air cells are clear. No aggressive osseous lesion or fracture. Impression: 1. No acute intracranial process. Of note, MRI is more sensitive for acute infarction less than 24 hours in age. 2. Mild cerebral volume loss. Moderate chronic small vessel ischemic [] (RONAL CHOU DO) Course & Med Decision Making Course & Med Decision Making Pertinent Labs and Imaging studies reviewed. (See chart for details) ED course: Patient arrived by EMS, the left-sided facial droop was noted, she was taken while still on the EMS cot directly to the CT scanner. She tolerated that well. After the return of the imaging findings, these were discussed with the on-call neurologist at who agreed with the impression that she does not meet lytic criteria at this time given her NIH stroke scale of one in the face of a fever with MS. That this constellation of symptoms could be a seated go neurologic impairment due to the urinary tract infection which is commonly seen with in patients with MS. Patient had IV fluids started. Her heart rate improved to 111 BY 6pm at which time patient care was endorsed to the nighttime ER physician pending return of additional laboratory testing and imaging studies.[] (RONAL CHOU DO) Course & Med Decision Making Pt. reports she feels much better since arrival. Report s the main reason she came to ED was confusion and increased generalized weakness. Pt. relates he has had Lt. side facial droop previously and increased with exacerbation of her MS. Pt. admitted to [facility] for further eval. and tx. Neurology consult. Impression: 1. TIA vs CVA 2. Exacerbation of MS 3. Confusion 4. Generalized Weakness 5. UTI 6. Fever 7. DM 8. Urinary Retention 9. Tachycardia (KENYETTA MONTANO MD) Dragon Disclaimer Dragon Disclaimer This electronic medical record was generated, in whole or in part, using a voice recognition dictation system. (RONAL CHOU DO) Departure Departure: Referrals: PCP,NO (PCP) Discharge Summary Visit Information Final Diagnosis Problems Medical Problems: (1) CVA (cerebral vascular accident) Status: Acute (2) Multiple sclerosis Status: Acute (3) Multiple sclerosis exacerbation Status: Acute (KENYETTA MONTANO MD) Brief Hospital Course Allergies Allergies Coded Allergies Type Severity Reaction Last Updated Verified No Known Drug Allergies 12/06/13 No Vital Signs Vital Signs Date Time Temp Pulse Resp B/P (MAP) Pulse Ox O2 Delivery O2 Flow Rate FiO2 03/13/19 23:06 97.5 100 20 102/51 (68) 95 Nasal Cannula 2.0 Lab Results Laboratory Tests Test 03/13/19 17:35 03/13/19 19:20 White Blood Count 10.1 x10^3/uL (4.0-11.0) Red Blood Count 5.06 x10^6/uL (3.50-5.40) Hemoglobin 14.8 g/dL (12.0-15.5) Hematocrit 44.8 % (36.0-47.0) Mean Corpuscular Volume 89 fL (79-100) Mean Corpuscular Hemoglobin 29 pg (25-35) Mean Corpuscular Hemoglobin Concent 33 g/dL (31-37) Red Cell Distribution Width 13.2 % (11.5-14.5) Platelet Count 268 x10^3/uL (140-400) Neutrophils (%) (Auto) 78 % (31-73) Lymphocytes (%) (Auto) 17 % (24-48) Monocytes (%) (Auto) 5 % (0-9) Eosinophils (%) (Auto) 1 % (0-3) Basophils (%) (Auto) 0 % (0-3) Neutrophils # (Auto) 7.9 x10^3uL (1.8-7.7) Lymphocytes # (Auto) 1.7 x10^3/uL (1.0-4.8) Monocytes # (Auto) 0.5 x10^3/uL (0.0-1.1) Eosinophils # (Auto) 0.1 x10^3/uL (0.0-0.7) Basophils # (Auto) 0.0 x10^3/uL (0.0-0.2) Erythrocyte Sedimentation Rate 31 (0-25) Prothrombin Time 9.8 SEC (9.4-11.4) Prothromb Time International Ratio 1.0 (0.9-1.1) Sodium Level 135 mmol/L (136-145) Potassium Level 4.4 mmol/L (3.5-5.1) Chloride Level 101 mmol/L (98-107) Carbon Dioxide Level 29 mmol/L (21-32) Anion Gap 5 (6-14) Blood Urea Nitrogen 11 mg/dL (7-20) Creatinine 0.9 mg/dL (0.6-1.0) Estimated GFR (Cockcroft-Gault) 62.3 BUN/Creatinine Ratio 12 (6-20) Glucose Level 224 mg/dL (70-99) Lactic Acid Level 1.8 mmol/L (0.4-2.0) Calcium Level 8.9 mg/dL (8.5-10.1) Total Bilirubin 0.2 mg/dL (0.2-1.0) Aspartate Amino Transf (AST/SGOT) 21 U/L (15-37) Alanine Aminotransferase (ALT/SGPT) 17 U/L (14-59) Alkaline Phosphatase 69 U/L (46-116) Troponin I Quantitative < 0.017 ng/mL (0-0.055) Total Protein 8.5 g/dL (6.4-8.2) Albumin 3.0 g/dL (3.4-5.0) Albumin/Globulin Ratio 0.5 (1.0-1.7) Urine Collection Type Unknown Urine Color Yellow Urine Clarity Turbid Urine pH 5.0 Urine Specific [place] 1.020 Urine Protein 30 mg/dl (NEG-TRACE) Urine Glucose (UA) 250 mg/dL (NEG) Urine Ketones (Stick) Neg mg/dL (NEG) Urine Blood Mod (NEG) Urine Nitrite Pos (NEG) Urine Bilirubin Neg (NEG) Urine Urobilinogen Dipstick 0.2 mg/dL (0.2 mg/dL) Urine Leukocyte Esterase Large (NEG) Urine RBC 11-20 /HPF (0-2) Urine WBC Tntc /HPF (0-4) Urine Squamous Epithelial Cells Few /LPF Urine Bacteria Many /HPF (0-FEW) Urine Mucus Slight /LPF Urine Yeast Present /HPF Brief Hospital Course Ms. Gayle is a 68 old female who presented with MS and UTI. Admitted Dr. Sawyer (KENYETTA MONTANO MD) Discharge Information Condition at Discharge: Improved, Stable Dischare Medications Current Medications Sodium Chloride 1,000 ml @ 1,000 mls/hr Q1H IV Last administered on 03/13/19at 17:10; Start 03/13/19 at 16:45; Stop 03/13/19 at 17:44; Status DC Acetaminophen (Tylenol) 500 mg 1X ONCE PO Last administered on 03/13/19at 17:24; Start 03/13/19 at 17:15; Stop 03/13/19 at 17:16; Status DC Ceftriaxone Sodium 1 gm/ Sodium Chloride 50 ml @ 100 mls/hr 1X ONCE IV Last administered on 03/13/19at 18:34; Start 03/13/19 at 18:30; Stop 03/13/19 at 18:59; Status DC Sodium Chloride 1,000 ml @ 1,000 mls/hr 1X ONCE IV Last administered on 03/13/19at 18:35; Start 03/13/19 at 18:15; Stop 03/13/19 at 19:14; Status DC Sodium Chloride 50 ml @ As Directed STK-MED ONCE .ROUTE ; Start 03/13/19 at 18:31; Stop 03/13/19 at 18:32; Status DC Ceftriaxone Sodium (Rocephin) 1 gm STK-MED ONCE .ROUTE ; Start 03/13/19 at 18:31; Stop 03/13/19 at 18:32; Status DC Lactated Ringer's 1,000 ml @ 1,000 mls/hr 1X ONCE IV Last administered on 03/13/19at 20:05; Start 03/13/19 at 19:15; Stop 03/13/19 at 20:14; Status DC Ondansetron HCl (Zofran) 4 mg PRN Q4HRS PRN IV NAUSEA/VOMITING; Start 03/13/19 at 19:15; Stop 03/14/19 at 19:14 Acetaminophen (Tylenol) 1,000 mg QIDPRN PRN PO Fever and Discomfort; Start 03/13/19 at 19:30 Aspirin (Children'S Aspirin) 81 mg 1X ONCE PO Last administered on 03/13/19at 20:31; Start 03/13/19 at 19:45; Stop 03/13/19 at 19:46; Status DC Active Scripts Active Augmentin 875-125 Tablet (Amoxicillin/Potassium Clav) 1 Each Tablet 1 Tab PO BID 7 Days Reported Albuterol Sulfate Neb Soln (Albuterol Sulfate) 2.5 Mg/3 Ml Vial.neb 1 Vial NEB PRN Q4HRS PRN Tramadol Hcl (Tramadol HCl) 50 Mg Tablet 50 Mg PO PRN Q6HRS PRN Tussin (Guaifenesin) 100 Mg/5 Ml Liquid 100 Mg PO Q6HRS PRN Potassium Chloride 10 Meq Tablet.er 20 Meq PO DAILY Mucinex Dm Er 600-30 Mg Tablet (Guaifenesin/Dextromethorphan) 1 Each Tab.er.12h 1 Tab PO BID Milk Of Magnesia (Magnesium Hydroxide) 2,400 Mg/10 Ml Oral.susp 2,400 Mg PO PRN DAILY PRN Enema Ready To Use (Na Phos,M-B/Na Phos,Di-Ba) 133 Ml Enema 133 Ml RC PRN DAILY PRN Bisacodyl 10 Mg Supp.rect 10 Mg RC PRN DAILY PRN Tylenol (Acetaminophen) 325 Mg Capsule 650 Mg PO PRN Q4HRS PRN Detrol La (Tolterodine Tartrate) 4 Mg Cap.er.24h 4 Mg PO QHS Senna (Sennosides) 8.6 Mg Tablet 8.6 Mg PO DAILY Myrbetriq (Mirabegron) 25 Mg Tab.er.24h 25 Mg PO BID Hydrocodone-Apap 7.5-325 (Hydrocodone Bit/Acetaminophen) 1 Each Tablet 1 Tab PO Q8HRS Gabapentin (Gabapentin) 300 Mg Capsule 300 Mg PO TID Docusate Sodium 100 Mg Capsule 100 Mg PO BID Aspirin 325 Mg Tablet 325 Mg PO DAILY (KENYETTA MONTANO MD) Dragon Disclaimer This chart was dictated in whole or in part using Voice Recognition software in a busy, high-work load, and often noisy Emergency Department environment. It may contain unintended and wholly unrecognized errors or omissions. (KENYETTA MONTANO MD) RONAL CHOU DO March 13, 2019 17:34 KENYETTA MONTANO MD March 13, 2019 19:24
[2019-03-13 17:53] LABS: BASO % 0 % (0-3); EOS # 0.1 x10^3/uL (0.0-0.7); EOS % 1 % (0-3); HEMATOCRIT 44.8 % (36.0-47.0); HEMOGLOBIN 14.8 g/dL (12.0-15.5); LYMPH # 1.7 x10^3/uL (1.0-4.8); LYMPH % 17 % (24-48); MEAN CORPUSCULAR HEMOGLOBIN 29 pg (25-35); MEAN CORPUSCULAR HGB CONC 33 g/dL (31-37); MEAN CORPUSCULAR VOLUME 89 fL (79-100); MONO # 0.5 x10^3/uL (0.0-1.1); MONO % 5 % (0-9); NEUT # 7.9 x10^3uL (1.8-7.7); NEUT % 78 % (31-73); PLATELET COUNT 268 x10^3/uL (140-400); RED BLOOD COUNT 5.06 x10^6/uL (3.50-5.40); RED CELL DISTRIBUTION WIDTH 13.2 % (11.5-14.5); WHITE BLOOD COUNT 10.1 x10^3/uL (4.0-11.0)
[2019-03-13 18:09] LABS: ALBUMIN/GLOBULIN RATIO 0.5 (1.0-1.7); CALCIUM 8.9 mg/dL (8.5-10.1); CREATININE 0.9 mg/dL (0.6-1.0); GFR 62.3; POTASSIUM 4.4 mmol/L (3.5-5.1); TOTAL BILIRUBIN 0.2 mg/dL (0.2-1.0); TOTAL PROTEIN 8.5 g/dL (6.4-8.2)
[2019-03-13] MEDS ORDERED: IV NORMAL SALINE 1,000ML 1,000 ML IV ONE (18:15)
--- NOTE | 2019-03-13 18:29 | RAD ---
CHEST AP ONLY History: Altered mental status.. Comparison with December 15, 2018. Low lung volumes. Cardiomediastinal silhouette is stable. No evidence of pneumothorax. No pleural effusion or infiltrate is seen. Bones appear intact. IMPRESSION: No evidence of consolidating infiltrate. Electronically signed by: Lobo Colon MD (03/13/2019 6:26 PM) [facility]
[2019-03-13] MEDS ORDERED: IV NORMAL SALINE 50ML 50 ML ONE (18:31)
[2019-03-13] MEDS ORDERED: cefTRIAXone SODIUM 1 GM VIAL ONE (18:31)
[2019-03-13 18:57] LABS: SEDIMENTATION RATE 31 (0-25)
[2019-03-13] MEDS ORDERED: ONDANSETRON PF 4 MG/2 ML VIAL. IV PRN (19:15)
[2019-03-13] MEDS ORDERED: IV RINGERS SOLUTION,LACTATED 1,000 ML IV ONE (19:15)
[2019-03-13] MEDS ORDERED: ACETAMINOPHEN 500 MG TABLET PO PRN (19:30)
[2019-03-13] MEDS ORDERED: ASPIRIN 81 MG TAB.CHEW PO ONE (19:45)
[2019-03-13 19:52] LABS: BILIRUBIN,URINE NEG (NEG); CLARITY,URINE TURBID; COLOR,URINE YELLOW; GLUCOSE,URINE 250 mg/dL (NEG); NITRITE,URINE POS (NEG); UROBILINOGEN,URINE 0.2 mg/dL (0.2 mg/dL); WBC,URINE TNTC /HPF (0-4)
[2019-03-13 19:53] LABS: BACTERIA,URINE MANY /HPF (0-FEW); SQUAMOUS EPITHELIAL CELL,UR FEW /LPF; YEAST,URINE PRESENT /HPF
[2019-03-13] MEDS: ENOXAPARIN ** NOTE DOSE ** SYRINGE SQ SCH (20:30)
[2019-03-13] MEDS: IV RINGERS SOLUTION,LACTATED 1,000 ML IV SCH (20:32)
[2019-03-13 20:44] VITALS: BP 89/54
--- NOTE | 2019-03-13 20:47 | NUR ---
The patient, JOHANNY MARRUFO, 68 y/o, F admitted by ARMOND PEREIRA MD, was given written information regarding hospital policies, unit procedures and contact persons. Valuables were checked and logged. Call light in place. Will continue to monitor.
[2019-03-13] MEDS: IPRATRPIUM/ALBUTEROL 0.5/2.5MG 3 ML NEBU. NEB SCH (21:16)
[2019-03-13] MEDS ORDERED: traMADol 50 MG TABLET PO PRN (22:45)
[2019-03-13] MEDS ORDERED: GUAI-108 PO (22:45)
[2019-03-13] MEDS ORDERED: GUAI100L34 PO (22:54)
[2019-03-13] MEDS ORDERED: POTA10TA10 PO (22:54)
[2019-03-13] MEDS ORDERED: ALBU2.5V5 NEB (23:02)
[2019-03-13] MEDS ORDERED: TRAM50TA PO (23:02)
[2019-03-13 23:06] VITALS: BP 102/51
[2019-03-14] MEDS: IV RINGERS SOLUTION,LACTATED 1,000 ML IV SCH ×3 (01:55→13:59)
--- NOTE | 2019-03-14 04:38 | NUR ---
Took out champion cath per protocol. Patient tolerated well. Patient resting at this time, no complaints at this time.
[2019-03-14] MEDS: IPRATRPIUM/ALBUTEROL 0.5/2.5MG 3 ML NEBU. NEB SCH ×3 (05:15→16:54)
[2019-03-14 05:39] VITALS: BP 109/72
--- NOTE | 2019-03-14 05:43 | NUR ---
Patient had a good shift, complaints of no pain or discomfort noted. Patient rested all night. Call light within reach. Will continue to monitor.
[2019-03-14] MEDS ORDERED: HYDROcodone/APAP 7.5/325MG 1 TAB TABLET PO SCH (06:00)
[2019-03-14] MEDS ORDERED: HYDROcodone/APAP 7.5/325MG 1 TAB TABLET PO PRN (06:00)
[2019-03-14 07:17] LABS: BASO % 0 % (0-3); EOS # 0.1 x10^3/uL (0.0-0.7); EOS % 1 % (0-3); HEMATOCRIT 38.1 % (36.0-47.0); HEMOGLOBIN 12.6 g/dL (12.0-15.5); LYMPH # 1.5 x10^3/uL (1.0-4.8); LYMPH % 32 % (24-48); MEAN CORPUSCULAR HEMOGLOBIN 29 pg (25-35); MEAN CORPUSCULAR HGB CONC 33 g/dL (31-37); MEAN CORPUSCULAR VOLUME 89 fL (79-100); MONO # 0.2 x10^3/uL (0.0-1.1); MONO % 5 % (0-9); NEUT # 2.8 x10^3uL (1.8-7.7); NEUT % 61 % (31-73); PLATELET COUNT 209 x10^3/uL (140-400); RED BLOOD COUNT 4.29 x10^6/uL (3.50-5.40); RED CELL DISTRIBUTION WIDTH 13.1 % (11.5-14.5); WHITE BLOOD COUNT 4.6 x10^3/uL (4.0-11.0)
[2019-03-14 07:22] LABS: CALCIUM 8.2 mg/dL (8.5-10.1); CREATININE 0.7 mg/dL (0.6-1.0); GFR 83.2; POTASSIUM 3.6 mmol/L (3.5-5.1)
[2019-03-14] MEDS: guaiFENesin DM 600/30MG 1 TAB TAB.ER.12H PO SCH ×2 (08:06→21:22)
[2019-03-14] MEDS: POTASSIUM CHLORIDE 20 MEQ TABLET.ER. PO SCH (08:06)
[2019-03-14] MEDS: DOCUSATE SODIUM 100 MG CAPSULE PO SCH ×2 (08:06→21:22)
[2019-03-14] MEDS: ENOXAPARIN ** NOTE DOSE ** SYRINGE SQ SCH (08:07)
[2019-03-14] MEDS: OXYBUTYNIN CHLORIDE 5 MG TABLET PO SCH ×3 (08:07→21:22)
[2019-03-14] MEDS: SENNOSIDES 8.6 MG TABLET PO SCH (08:07)
[2019-03-14] MEDS: GABAPENTIN 300 MG CAPSULE. PO SCH ×3 (08:07→21:22)
--- NOTE | 2019-03-14 08:45 | RAD ---
Bilateral carotid arterial duplex study 03/14/2019 CLINICAL HISTORY: Mental status changes TECHNIQUE: Using a combination of real-time ultrasound imaging and color-flow and pulse Doppler imaging techniques, duplex evaluation of the common carotid arteries, carotid bifurcations and internal carotid arteries along with the vertebral arteries within the neck was performed. Multiple images were obtained. Stenosis calculations for carotid ultrasound are based on validated velocity measurements which are noted to correlate with the NASCET methodology. FINDINGS: Mild atheromatous/atherosclerotic plaque formation is seen involving both carotid bifurcations and proximal internal carotid arteries bilaterally. The peak systolic velocities are not significantly elevated. No hemodynamically significant stenosis is seen. Both vertebral arteries demonstrate normal antegrade flow. IMPRESSION: Mild atheromatous/atherosclerotic plaque formation is seen involving both carotid bifurcations. No hemodynamically significant stenosis or area of occlusion is seen. Electronically signed by: Elliot Galvan MD (03/14/2019 8:42 AM) [facility]
[2019-03-14] MEDS ORDERED: ASPIRIN 81 MG TAB.CHEW PO SCH (09:00)
[2019-03-14] MEDS: LACTOBACILLUS RHAMNOSUS GG 1 CAPSULE. PO SCH ×2 (09:15→21:22)
[2019-03-14] MEDS: MIRABEGRON 25 MG TAB.ER.24H PO SCH ×2 (09:15→21:23)
[2019-03-14 11:22] VITALS: BP 131/71
[2019-03-14] MEDS ORDERED: ALBUTEROL SULFATE 2.5 MG/3 ML NEBU. NEB PRN (12:45)
[2019-03-14] MEDS ORDERED: SODIUM PHOSPHATES 19/7GM 133 ML ENEMA. RC PRN (12:45)
[2019-03-14] MEDS ORDERED: guaiFENesin 300 MG/15 ML LIQUID PO PRN (12:45)
[2019-03-14] MEDS ORDERED: ACETAMINOPHEN 325 MG TABLET PO PRN (13:00)
[2019-03-14] MEDS ORDERED: MAGNESIUM HYDROXIDE 2,400 MG/30 ML ORAL.SUSP. PO PRN (13:15)
[2019-03-14] MEDS ORDERED: BISACODYL 10 MG SUPP.RECT PR PRN (13:15)
--- NOTE | 2019-03-14 13:45 | HP ---
ADMIT DATE: 03/14/2019 HISTORY OF PRESENT ILLNESS: The patient is a 68-year-old female patient, who was brought to the Emergency Room with complaint of weakness that is generalized. She was noted also to have left-sided facial droop and nursing staff there work concerned that she might have stroke and therefore she was brought to the Emergency Room. She was diagnosed there with another UTI and was started on first dose of trimethoprim-sulfamethoxazole on the day of admission. She denied any headache. She is known to have multiple sclerosis, but denied any localized weakness. She was extensively evaluated in the Emergency Room. Her lab work showed all her lab works were fairly normal. Her CT scan of the head showed no acute intracranial process. Of note, the MRI is more sensitive. She has mild cerebral volume loss, moderate chronic small vessel ischemic disease. She had bilateral carotid Doppler, which showed mild atheromatous arteriosclerotic plaque formation is seen involving both carotid bifurcation, no hemodynamically significant stenosis or area of occlusion is seen and was admitted to continue with IV antibiotic in the form of ceftriaxone, continue with IV fluid. Apparently, the neurologist was consulted. PAST MEDICAL HISTORY: Significant for hypertension, hyperlipidemia, longstanding multiple sclerosis, peripheral neuropathy, chronic constipation, osteoarthritis, urinary retention, incontinence and recurrent UTIs. PAST SURGICAL HISTORY: Significant for right cataract extraction, appendectomy and hysterectomy. ALLERGIES: She has no known drug allergies. FAMILY HISTORY: She has one brother and older sister with heart disease. Both her parents are . SOCIAL HISTORY: She is , has 2 children. She is an ex-smoker, does not drink alcohol or use any drugs. MEDICATIONS: She is currently on following medications: She is on amoxicillin, clavulanic acid 1 tablet twice a day for 7 days that should have been finished since her last admission, albuterol sulfate 2.5 mg 3 mL by nebulizer every 4 hours, aspirin 325 mg once a day, hydrocodone/APAP 7.5/325 one tablet every 8 hours. She is on tramadol 50 mg every 6 hours, acetaminophen 650 mg every 4 hours, gabapentin 300 mg 3 times a day, potassium chloride 20 mEq once a day, guaifenesin/dextromethorphan 1 tablet twice a day. She is also on Tussin 100 mg every 6 hours, bisacodyl 10 mg suppository rectally daily p.r.n. for constipation, Colace 100 mg twice a day, milk of magnesia 30 mL p.o. daily p.r.n. for constipation, Phosphate enema 133 mL per rectum daily p.r.n. for constipation. She is on senna 1 tablet daily. She is on Detrol-LA 4 mg at bedtime and Myrbetriq 25 mg p.o. b.i.d. PHYSICAL EXAMINATION: GENERAL: On arrival to the Emergency Room, the patient was slightly tachypneic, tachycardic. VITAL SIGNS: Her heart rate was 121, blood pressure was 126/87, temperature was 101.3, respiratory rate was 25, and oxygen saturation was only 89% on room air. HEAD, EYES, EARS, NOSE, AND THROAT: Showed she is normocephalic, atraumatic. NECK: Supple. HEART: Showed normal first and second heart sounds. No gallop, rub or murmur. CHEST: Clear to auscultation. No crepitation or rhonchi. ABDOMEN: Distended, soft, nontender. No guarding or rigidity. No organomegaly. All hernial orifice intact. Bowel sounds normal. NEUROLOGIC: She was awake, alert, responding appropriately. All her cranial nerves intact. She moves upper extremities to much good extent than lower extremities. She is mostly bedbound, chair bound. LABORATORY DATA: On arrival showed a white cell count of 10,100, hemoglobin 14.8, hematocrit 44.8, MCV 89 and platelet count 268,000 with normal manual differential. Her chemistry showed a serum sodium 135, potassium 4.4, chloride 101, bicarbonate 29, anion gap of 5, BUN 11, creatinine was 0.9, estimated GFR was 62 mL per minute. Her glucose was 224, calcium was 8.9. Total bilirubin, AST, ALT, alkaline phosphatase were normal. Her total protein was 8.5, albumin 3. Her prothrombin time was 9.8, INR of 1 and urinalysis showed the urine was yellow, turbid with a pH of 5, specific gravity of 1.020. There was small amount of protein, large amount of glucose, negative for ketones, moderate amount of blood, positive for nitrite. There was large amount of leukocyte esterase, 11-20 rbc's, too numerous to count wbc's and many bacteria. She did have a CT scan of the head, which showed no acute intracranial process. There is mild generalized cerebral and cerebellar volume loss, moderate nonspecific periventricular hypoattenuation most commonly seen with chronic small vessel ischemic disease. There were no intra or extraaxial mass or fluid collection, no acute hemorrhage. The ventricles are normal in size, shape and morphology. The carter white matter junction is normal. The basilar cisterns are patent. She has small right maxillary sinus mucous retention cyst. The visualized portions of the orbits and globes are normal. The mastoid air cells are clear. No aggressive osseous lesions or fracture. Her chest x-ray showed that the cardiomediastinal silhouette is stable. No evidence of pneumothorax. No pleural effusion, no infiltrate is seen. The bone appears intact. Her carotid Doppler ultrasound showed that she has mild atheromatous atherosclerotic plaque formation is seen involving both carotid bifurcation. No hemodynamically significant stenosis or area of occlusion is seen. ASSESSMENT AND PLAN: The patient was admitted with urinary tract infection. We will continue with IV ceftriaxone. We will call the [facility] to get the result of the urine culture that was done there to adjust the antibiotic accordingly. We did consult Dr. Carpio to see her for this possible transient ischemic attack. ARMOND PEREIRA MD DR: HONORIO/nina JOB#: [id number] / [id number]
--- NOTE | 2019-03-14 13:52 | EKG ---
[address] [address] Test Date: 2019-03-14 Test Time: 13:46:33 Pat Name: JOHANNY MARRUFO Department: Room: 111 A Gender: F Packer Denture: : 1950 Requested By: ARMOND PEREIRA Order Number: [id number] Reading MD: Kasi Hart MD Measurements Intervals [place] Rate: 110 P: 180 ID: 158 QRS: 31 QRSD: 84 T: 48 QT: 372 QTc: 510 Interpretive Statements SINUS TACHYCARDIA NON-SPECIFIC ST/T CHANGES PROBABLE 1ST DEGREE AVB Electronically Signed On 04-08-2019 15:03:23 CDT by Kasi Hart MD
[2019-03-14 16:02] VITALS: BP 127/70
[2019-03-14 19:48] VITALS: BP 130/76
[2019-03-14] MEDS: CIPROFLOXACIN 400MG PREMIX 200 ML IV SCH (21:22)
--- NOTE | 2019-03-14 23:05 | PN ---
DATE: 03/14/2019 SUBJECTIVE: The patient is resting, slightly propped up in her chair, eating her lunch comfortably, in no apparent distress. On questioning her, she denied any complaints. Nursing staff did not voice any concern. She apparently was seen by Dr. Carpio and he does not seem to have any concern about any TIA. PHYSICAL EXAMINATION: GENERAL: When I examined her, she looked well and was clearly in no apparent respiratory distress. No pallor or jaundice, cyanosis, or thyromegaly. No jugular venous distension. No limb edema. VITAL SIGNS: Her heart rate was 104, blood pressure was 131/71, temperature was 98, respiratory rate was 20, and oxygen saturation was 93% on 2 liters of oxygen. HEAD, EYES, EARS, NOSE AND THROAT: Showed normocephalic, atraumatic. NECK: Supple. HEART: Showed normal first and second heart sounds with no gallop, rub or murmur. CHEST: Clear to auscultation. No crepitation or rhonchi. ABDOMEN: Distended, soft, nontender. NEUROLOGIC: She is awake, alert, responding appropriately. All her cranial nerves seem to be intact. There is no facial droop. She moves her upper extremities without difficulty. She is mostly bedbound, chair bound. She has functional paraplegia due to longstanding multiple sclerosis. Her intake over the last 24 hours was 5080. No output was recorded. LABORATORY DATA: As of this morning showed a white cell count down to 4500, hemoglobin 12.6, hematocrit 38, MCV 89 and platelet count 209,000. Her chemistry showed a serum sodium 137, potassium 3.6, chloride 104, bicarbonate 26, anion gap of 7, BUN 8, creatinine 0.7, estimated GFR was 83 mL per minute. Her glucose was ____, calcium was 8.2. Her serum triglycerides 176, total cholesterol 139, LDL cholesterol 83, VLDL was 35, HDL was 21 and ratio was 6. Her urine culture is still pending at the time of this dictation. ASSESSMENT: This is a 68-year-old female patient, who was a resident at [facility] who was transferred to Emergency Room at [facility] for possible facial droop. She was also diagnosed with urinary tract infection for which was started on trimethoprim and sulfamethoxazole the day of admission. She also complained of generalized weakness. Her CT scan was unremarkable and showed she has a UTI for which she is now on ceftriaxone. We will contact the [facility] to get the results of the urine culture it was done there. Other problems include longstanding multiple sclerosis, functional paraplegia, urine retention, incontinence and recurrent urinary tract infection, hypertension, hyperlipidemia, chronic constipation. We will continue with IV fluid, continue with IV antibiotic. Continue with all her other medications. ARMOND PEREIRA MD DR: HONORIO/nina JOB#: [id number] / [id number]
[2019-03-14 23:21] VITALS: BP 138/75
--- NOTE | 2019-03-15 00:08 | CONS ---
DATE OF CONSULTATION: 03/13/2019 NEUROLOGY CONSULTATION REFERRING PHYSICIAN: Dr. Sawyer. REASON FOR CONSULTATION: Rule out MS exacerbation and confusion. HISTORY OF PRESENT ILLNESS: This is a 68-year-old female who was admitted through the Emergency Room after she presented with a sudden onset of left facial drooping and confusion. The patient is a group home resident. She has had longstanding history of multiple sclerosis diagnosed in 2006 with a result of generalized weakness, frequent falls, and urinary incontinence. The patient stated she was witnessed by her family members yesterday confused and disoriented. In the Emergency Room, she was found to have urinary tract infections. The patient stated she has had urinary incontinence for several years and she had appointment with urologist for suprapubic catheter procedure later this month. Currently, she denies headaches, visual disturbances, nausea, vomiting, chest pain, shortness of breath or palpitations, dysarthria, or dysphagia. She also complains of chronic pain of the lower extremities associated with numbness and paresthesia of the feet. She did have lower back pain several years ago, but she was treated in pain clinic with epidural blocks with significant relief of her pain. However, she has been using a walker and wheelchair for ambulation. PAST MEDICAL HISTORY: Significant for multiple sclerosis, peripheral neuropathy, hyperlipidemia, frequent urinary tract infections, urinary incontinence, overactive bladder, generalized weakness, osteoarthritis. PAST SURGICAL HISTORY: History of fracture of the right femoral bone required surgery several years ago. SOCIAL HISTORY: She is a group home resident. She denies smoking, alcohol drinking, or illicit drug use. FAMILY HISTORY: Noncontributory. CURRENT MEDICATIONS: Tylenol, albuterol inhaler, ceftriaxone IV, Colace, gabapentin, Lortab, mirabegron, Zofran, oxybutynin, potassium, senna, and Ultram. ALLERGIES: No known drug allergies. REVIEW OF SYSTEMS: A 10-point review of system was performed and as mentioned above in the history of present illness. PHYSICAL EXAMINATION: GENERAL: Well-developed, well-nourished female, not in acute distress. She weighs 93.4 kilos. VITAL SIGNS: Blood pressure 131/71, respiratory rate 20, pulse is 104, temperature 98, oxygen saturation 93% on 2 liters by nasal cannula. HEENT: Normocephalic, atraumatic, otherwise unremarkable. NECK: Supple. Negative for carotid bruit, lymphadenopathy or thyromegaly. LUNGS: With diminished breath sounds, but no wheezing or rales. CARDIOVASCULAR: Regular rate and rhythm, normal S1, S2. There is no S3, S4, or murmur. ABDOMEN: Soft. Bowel sounds positive. EXTREMITIES: Negative for cyanosis, clubbing, or pitting edema. NEUROLOGIC: 1. Mental Status: The patient is alert and oriented x 3. The speech is fluent. There is no language dysfunction. Memory, judgment, and abstracting thinking are fair. The patient denies hallucination or delusion. 2. Cranial Nerves: Visual dover are full. The pupils are reactive to light and accommodation. The extraocular movements are intact. There is no nystagmus. There is no facial motor or sensory deficit. Hearing is intact bilaterally. The palate is elevated symmetrically. Sternocleidomastoid muscles are powerful bilaterally. The patient shrugs her shoulders symmetrically and protrudes her tongue in the midline without fasciculation or atrophy. 3. Motor Examination: No focal muscle bulk was seen. The tone is normal. The strength is 4/5 in the right foot dorsiflexion, inversion, eversion, and flexion. The strength elsewhere was 5/5 throughout. Sensory examination revealed normal pinprick, light touch, vibratory and position senses. Deep tendon reflexes were asymmetric and hypoactive with absent Achilles responses. Gait not tested. DIAGNOSTIC DATA: Carotid Doppler study revealed mild atherosclerotic plaque, but no significant stenosis. Chest x-ray revealed no evidence of cardiopulmonary process and head CT scan revealed no acute intracranial process, but positive moderate chronic small vessel ischemic changes. LABORATORY DATA: CBC revealed white blood cells of 4.6 thousand, hemoglobin 12.6, hematocrit 38.1, platelet count 209. Chemistry: Sodium 137, potassium 3.6, chloride 104, CO2 26, BUN 8, creatinine 0.7, glucose 217. Lactic acid 1.8. Lipid profile revealed high triglyceride at 176 with normal cholesterol and low HDL at 21. IMPRESSION: 1. Recent intermittent confusion, probably due to underlying urinary tract infections. However, there is no evidence of transient ischemic attack or acute stroke at this time. 2. Longstanding history of multiple sclerosis without evidence of exacerbation. 3. Hyperglycemia - rule out diabetes mellitus. 4. Urinary tract infections with long history of urinary incontinence and overactive bladder. RECOMMENDATIONS: Treat the underlying urinary tract infections and continue with current home medications and care initiated by Dr. Sawyer. M Darling GIBBONS MD DR: ELO/nina JOB#: [id number] / [id number]
[2019-03-15] MEDS: IV RINGERS SOLUTION,LACTATED 1,000 ML IV SCH ×5 (01:01→23:00)
--- NOTE | 2019-03-15 04:47 | NUR ---
Pt rested most of the night. Linen change x2 due to urination. States her feet are "burning" relieved by removing socks and applying lotion. No other complaints of pain or discomfort.
[2019-03-15 05:34] VITALS: BP 135/74
[2019-03-15] MEDS: LACTOBACILLUS RHAMNOSUS GG 1 CAPSULE. PO SCH ×2 (08:16→21:36)
[2019-03-15] MEDS: DOCUSATE SODIUM 100 MG CAPSULE PO SCH ×2 (08:16→21:36)
[2019-03-15] MEDS: ASPIRIN 325 MG TABLET PO SCH (08:16)
[2019-03-15] MEDS: POTASSIUM CHLORIDE 20 MEQ TABLET.ER. PO SCH (08:16)
[2019-03-15] MEDS: GABAPENTIN 300 MG CAPSULE. PO SCH ×3 (08:16→21:36)
[2019-03-15] MEDS: guaiFENesin DM 600/30MG 1 TAB TAB.ER.12H PO SCH ×2 (08:17→21:36)
[2019-03-15] MEDS: SENNOSIDES 8.6 MG TABLET PO SCH (08:17)
[2019-03-15] MEDS: OXYBUTYNIN CHLORIDE 5 MG TABLET PO SCH ×3 (08:17→21:36)
[2019-03-15] MEDS: MIRABEGRON 25 MG TAB.ER.24H PO SCH ×2 (08:17→21:36)
[2019-03-15] MEDS: CIPROFLOXACIN 400MG PREMIX 200 ML IV SCH ×2 (08:20→21:35)
[2019-03-15] MEDS: ENOXAPARIN 40 MG/0.4 ML SYRINGE. SQ SCH (09:03)
--- NOTE | 2019-03-15 09:58 | NUR ---
IP: patient has ESBL in urine according to nursing reported by physician from cx prior to admission. Requires contact precautions until 2 negative results 7 days apart with no antibiotics.
--- NOTE | 2019-03-15 10:06 | NUR ---
Pt is alert and oriented but forgetful. Very dependent on staff to do minor things for her. Encouraging patient to do things that she can do for herself. IV infusing. Pt is SR/ST on tele. Edema noted in lower extremities. WCTM.
[2019-03-15] MEDS ORDERED: DEXTROSE 50% 25 GM / 50ML DISP.SYRIN. IV PRN (10:30)
[2019-03-15 11:03] VITALS: BP 123/71
[2019-03-15] MEDS: GLIMEPIRIDE 2 MG TABLET PO SCH (12:22)
[2019-03-15] MEDS: INSULIN LISPRO 300 UNITS/3 ML INSULN.PEN. SQ SCH ×2 (12:26→16:55)
[2019-03-15 15:17] VITALS: BP 138/75
[2019-03-15] MEDS: metFORMIN XR 500 MG TAB.ER.24H PO SCH (16:45)
--- NOTE | 2019-03-15 17:19 | NUR ---
NURSING NOTE TOOK OVER CARE OF PT AT 1715 UNTIL SHIFT CHANGE. REPORT FROM LISA CADET. LISA SANZ.
[2019-03-15 20:11] VITALS: BP 138/83
[2019-03-15 22:50] VITALS: BP 121/78
--- NOTE | 2019-03-16 01:42 | PN ---
DATE: 03/15/2019 SUBJECTIVE: The patient denies any new medical or neurological complaints. She denies headaches, visual disturbances, nausea, vomiting, chest pain, shortness of breath or palpitation, dysarthria or dysphagia. OBJECTIVE: GENERAL: Well-developed, well-nourished female, not in acute distress. VITAL SIGNS: Blood pressure 135/74, respiratory rate 20, pulse is 94, temperature 97.5, oxygen saturation 93% on 2 liters by nasal cannula. HEENT: Normocephalic, atraumatic, otherwise, unremarkable. NECK: Supple. Negative for carotid bruit, lymphadenopathy or thyromegaly. LUNGS: Clear to A and P. CARDIOVASCULAR: Regular rate and rhythm. Normal S1, S2. There is no S3, S4, or murmur. ABDOMEN: Soft. Bowel sounds positive. EXTREMITIES: Negative for cyanosis, clubbing or pitting edema. NEUROLOGICAL EXAM: Mental Status: She is alert and oriented x 3. Speech is fluent. There is no language dysfunction. Memory, judgment, and abstract thinking are normal. The patient denies hallucination or delusion. Cranial nerves are intact. Motor examination revealed no focal muscle bulk was seen. The strength was 4/5 throughout except for moderate right foot drop. Sensory examination revealed normal pinprick and light touch senses throughout. Deep tendon reflexes are symmetric and hypoactive with absent Achilles responses. Gait not tested. IMPRESSION: 1. Brief confusion on admission -- resolved, probably secondary to urinary tract infections. 2. Recurrent urinary tract infections. 3. Multiple medical problems include multiple sclerosis, hyperglycemia, urinary incontinence and overactive bladder. RECOMMENDATIONS: Continue with current management. The patient is neurologically stable. M Darling GIBBONS MD DR: ELO/nina JOB#: [id number] / [id number]
[2019-03-16 05:05] VITALS: BP 114/62
[2019-03-16] MEDS: IV RINGERS SOLUTION,LACTATED 1,000 ML IV SCH ×2 (05:15→11:30)
--- NOTE | 2019-03-16 06:19 | NUR ---
Nursing Note Pt slept most of the night. Brief was changed twice with urine and BM. Pt requested a pain pill about 0600.
[2019-03-16 06:51] LABS: CALCIUM 8.6 mg/dL (8.5-10.1); CREATININE 0.6 mg/dL (0.6-1.0); GFR 99.4; POTASSIUM 3.5 mmol/L (3.5-5.1)
[2019-03-16] MEDS: LACTOBACILLUS RHAMNOSUS GG 1 CAPSULE. PO SCH (08:08)
[2019-03-16] MEDS: DOCUSATE SODIUM 100 MG CAPSULE PO SCH (08:08)
[2019-03-16] MEDS: ENOXAPARIN 40 MG/0.4 ML SYRINGE. SQ SCH ×2 (08:08→08:15)
[2019-03-16] MEDS: ASPIRIN 325 MG TABLET PO SCH (08:08)
[2019-03-16] MEDS: GABAPENTIN 300 MG CAPSULE. PO SCH (08:08)
[2019-03-16] MEDS: metFORMIN XR 500 MG TAB.ER.24H PO SCH (08:08)
[2019-03-16] MEDS: GLIMEPIRIDE 2 MG TABLET PO SCH (08:08)
[2019-03-16] MEDS: OXYBUTYNIN CHLORIDE 5 MG TABLET PO SCH (08:09)
[2019-03-16] MEDS: POTASSIUM CHLORIDE 20 MEQ TABLET.ER. PO SCH (08:09)
[2019-03-16] MEDS: guaiFENesin DM 600/30MG 1 TAB TAB.ER.12H PO SCH (08:09)
[2019-03-16] MEDS: MIRABEGRON 25 MG TAB.ER.24H PO SCH (08:09)
[2019-03-16] MEDS: SENNOSIDES 8.6 MG TABLET PO SCH (08:09)
[2019-03-16] MEDS: INSULIN LISPRO 300 UNITS/3 ML INSULN.PEN. SQ SCH ×2 (08:10→12:12)
[2019-03-16] MEDS: CIPROFLOXACIN 400MG PREMIX 200 ML IV SCH (08:12)
--- NOTE | 2019-03-16 10:40 | PN ---
DATE: 03/15/2019 SUBJECTIVE: The patient is resting slightly propped up in her recliner in no apparent distress. On questioning her, she denied any complaints. Nursing staff are concerned that her blood sugar has been consistently high. The patient does not carry a diagnosis of diabetes before, but her blood sugar is definitely consistently more than 200. In fact, her fasting blood sugar this morning was 212 and yesterday was 218. Her urinalysis showed large amount of blood glucose, so I explained the findings to the patient and that we are going to start her on oral hypoglycemic agent. I also explained to her that we received culture and sensitivity from the [facility] and in fact she was growing 2 organisms that both are sensitive to ciprofloxacin. She was switched to that. We will follow her closely and if she remains stable, we can hopefully discharge her back to [facility] to continue with oral ciprofloxacin. PHYSICAL EXAMINATION: GENERAL: When I examined her this afternoon, she looked well and was clearly in no apparent respiratory distress, pale, but no jaundice, cyanosis or thyromegaly. No jugular venous distension. No lower limb edema. VITAL SIGNS: Her heart rate was 83, blood pressure was 123/71, temperature was 97.5, respiratory rate was 20, and oxygen saturation was 92% on room air. HEAD, EYES, EARS, NOSE, AND THROAT: Showed normocephalic, atraumatic. NECK: Supple. HEART: Showed normal first and second heart sounds with no gallop, rub, or murmur. CHEST: Clear to auscultation. No crepitation or rhonchi. ABDOMEN: Distended, soft, nontender. NEUROLOGIC: She is awake, alert, responding appropriately. All cranial nerves are intact. She moves upper extremities without difficulty. She has functional paraplegia due to longstanding multiple sclerosis. She has also urinary incontinence. Her intake over the last 24 hours was 5080. LABORATORY DATA: She has no lab work done this morning; however, her blood sugar has been consistently high and more than 200. Her BUN is 8, creatinine 0.7. Her white cell count is down to 4600, hemoglobin 12, hematocrit 38, MCV was 89, and platelet count 209,000. ASSESSMENT: The patient was admitted with possible facial droop and transient ischemic attack, although subsequent investigation was unremarkable. She also was found to have urinary tract infection with growth of 2 organisms, one of them has ESBL and both were sensitive to ciprofloxacin. She is now on IV ciprofloxacin. New onset type 2 diabetes mellitus, which we started her on metformin and Amaryl. Other medical problems include; A. Hypertension. B. Hyperlipidemia. C. Longstanding multiple sclerosis. D. Peripheral neuropathy. E. Chronic constipation. F. Osteoarthritis. G. Urine retention, incontinence, and recurrent urinary tract infections. ARMOND PEREIRA MD DR: HONORIO/nina JOB#: [id number] / [id number]
[2019-03-16] MEDS ORDERED: CIPR500T PO (11:25)
[2019-03-16] MEDS ORDERED: METF500T9 PO (11:26)
[2019-03-16] MEDS ORDERED: GLIM1TAB PO (11:26)
[2019-03-16 11:34] VITALS: BP 122/79
--- NOTE | 2019-03-16 13:07 | NUR ---
Discharge Note: JOHANNY MARRUFO E[facility] Discharge instructions and discharge home medications reviewed with Patient and a copy given. All questions have been answered and understanding verbalized. The following instructions and handouts were given: MS and type 2 diabetes. Discontinued lines and drains: IV in left wrist D/C, tip in tact, pressure dressing applied. Patient discharged to residence at [facility]. Report given to LISA Booker at 1150 am. Patient was picked up by [facility] transport at 1300. Discharge packet given to Gaston from transport with [facility]. Patient ambulates via wheel chair and left via wheel chair with transport from [facility].
--- NOTE | 2019-03-16 20:17 | DS ---
DATE OF DISCHARGE: 03/16/2019 HISTORY OF PRESENT ILLNESS: The patient is a 68-year-old female patient, resident at [facility], who was initially brought to the Emergency Room, possible left-sided facial droop. Nursing staff were concerned that she might have a stroke and therefore she was brought to the Emergency Room. She apparently was recently diagnosed with UTI and was started on first dose of trimethoprim sulfamethoxazole on the day of admission, but she denied any headache, denied any tingling or numbness. She is known to have longstanding multiple sclerosis and functional paraplegia. She was extensively evaluated in the Emergency Room. Her lab work was fairly normal. Her CT scan of the head showed no acute intracranial process. She did have mild cerebral volume loss, moderate chronic small vessel ischemic disease. She had bilateral carotid Doppler, which showed no arteriosclerotic plaque formation seen involving both carotid bifurcation, but no hemodynamically significant stenosis or areas of occlusion is seen. She was initially started on IV ceftriaxone; however, we did called the half-way facility and apparently she grew greater than 100,000 colony forming as per mL of Klebsiella pneumoniae, that is ESBL positive and greater than 100,000 colony forming units per mL of Enterobacter cloacae complex and the culture showed that both are sensitive to ciprofloxacin, so therefore she was switched to IV ciprofloxacin 500 mg twice a day. While in the hospital, she was found also to have hyperglycemia with fasting blood sugar around 200 on multiple occasions and also random blood sugar and that are more than 200. By definition she is diabetic. I explained the findings to her. We did start her on metformin extended release 500 mg twice a day as well as Amaryl 2 mg once a day as she remained hemodynamically stable and afebrile, a decision was made to discharge her back to [facility] to continue on oral ciprofloxacin 500 mg twice a day for 7 more days and to continue on all other medication including metformin and Amaryl. We did actually check her hemoglobin A1c, the results of which is still pending at the time of this dictation. PHYSICAL EXAMINATION: GENERAL: When I saw her this morning, she looked well and was clearly in no apparent respiratory distress. No pallor, jaundice or cyanosis. No lymphadenopathy, no thyromegaly. No jugular venous distension. No lower limb edema. VITAL SIGNS: Her heart rate was 93, blood pressure 114/62, temperature was 98.1, respiratory rate was 20, and oxygen saturation was 91% on 2 liters of oxygen. HEAD, EYES, EARS, NOSE AND THROAT: Showed normocephalic, atraumatic. NECK: Supple. HEART: Showed normal first and second heart sounds. No gallop, rub or murmur. CHEST: Clear to auscultation. No crepitation or rhonchi. ABDOMEN: Distended, soft, nontender. No guarding or rigidity. No organomegaly. All hernial orifice intact. Bowel sounds normal. NEUROLOGIC: She was awake, alert, responding appropriately. All her cranial nerves intact. She moves upper extremities without difficulty. She has functional paraplegia due to longstanding multiple sclerosis. Her intake and output were incompletely recorded. Her lab work as of this morning showed a white cell count 4600, hemoglobin 13, hematocrit 38, MCV 89 and platelet count of 209,000. Her chemistry showed serum sodium of 137, potassium 3.6, chloride 104, bicarbonate 26, anion gap of 7, BUN 8, creatinine 0.7, estimated GFR was 83 mL per minute. Her glucose was 217, calcium was 8.2. Lactic acid is 1.8. Her serum triglycerides were 176, total cholesterol 139, LDL cholesterol was 83, LDL was 118. Her HDL cholesterol was 21 and ratio was 6. Her prothrombin time was 9.8, INR of 1. Urinalysis showed that the patient was positive for nitrite. There was large amount of leukocyte esterase, 11-20 rbc's, and too numerous to count wbc's. Her urine culture done at [facility] showed growth of 2, bacteria. Both are sensitive to ciprofloxacin. DISCHARGE MEDICATIONS: She was discharged back to [facility] to continue on following medications: Metformin 500 mg twice a day with meals, glimepiride 2 mg once a day. She is on aspirin 325 mg once a day, ciprofloxacin 500 mg twice a day, magnesium hydroxide for milk of magnesia 30 mL p.o. daily p.r.n. for constipation, bisacodyl for Dulcolax suppository 10 mg rectally daily p.r.n. for constipation, Tylenol 650 mg every 4 hours as needed, Fleet enemas 133 mL rectally daily p.r.n. for constipation, Robitussin 100 mg every 6 hours, albuterol sulfate 2.5 mg in 0.5 mL by nebulizer every 4 hours, lactobacillus, rhamnosus 1 capsule twice a day, oxybutynin 5 mg 3 times a day, senna 1 tablet daily, Colace 100 mg twice a day, Myrbetriq 25 mg twice a day, Mucinex 600 mg twice a day, gabapentin 300 mg 3 times a day, potassium chloride 20 mEq once a day, hydrocodone/APAP 7.5/325 one tablet every 8 hours and tramadol 50 mg every 6 hours as needed. FINAL DISCHARGE DIAGNOSES: 1. The patient was admitted initially with left facial droop; however, there was no evidence of TIA or cerebrovascular accident. 2. Urinary tract infection with growth of 2 organisms, both sensitive to ciprofloxacin. She has multiple other medical problems including hypertension, hyperlipidemia, longstanding multiple sclerosis with functional paraplegia, peripheral neuropathy, chronic constipation, osteoarthritis, urinary retention and incontinence and recurrent urinary tract infections. ARMOND PEREIRA MD DR: HONORIO/nina JOB#: [id number] / [id number]
[2019-03-17 11:11] LABS: HEMOGLOBIN A1C 8.1 % (4.8-5.6)
== END 2019-03-16 13:12 | DRG 872 ==
LOC: ER 16:35 → 1 SOUTH 19:47
PROVIDERS: ADMIT Internal Medicine; ATTEND Internal Medicine
DX: A41.9 Sepsis, unspecified organism (principal); N39.0 Urinary tract infection, site not specified; E11.65 Type 2 diabetes mellitus with hyperglycemia; E78.5 Hyperlipidemia, unspecified; F44.4 Conversion disorder with motor symptom or deficit; G35 Multiple sclerosis; E11.42 Type 2 diabetes mellitus with diabetic polyneuropathy; G89.29 Other chronic pain; I10 Essential (primary) hypertension; I25.10 Atherosclerotic heart disease of native coronary artery without angina pectoris; J44.9 Chronic obstructive pulmonary disease, unspecified; K59.09 Other constipation; F32.9 Major depressive disorder, single episode, unspecified; R00.0 Tachycardia, unspecified; M19.90 Unspecified osteoarthritis, unspecified site; N32.81 Overactive bladder; R29.810 Facial weakness; R32 Unspecified urinary incontinence; Z82.49 Family history of ischemic heart disease and other diseases of the circulatory system; Z87.440 Personal history of urinary (tract) infections; Z87.891 Personal history of nicotine dependence; Z90.49 Acquired absence of other specified parts of digestive tract; Z90.710 Acquired absence of both cervix and uterus; Z98.41 Cataract extraction status, right eye
CPT/HCPCS: 36415; 51702; 70450; 71045; 80048; 80053; 80061; 81001; 82947; 83036; 83605; 84484; 85025; 85610; 85651; 87040; 87086; 87186; 87641; 93005; 93880; 94640; 96361; 96365; J0696; J0744; J1650; J1815; J7120; J7620; 99285-25; J7030

== ENCOUNTER 2019-08-08 20:30 | Inpatient (IN) | payer MEDICARE, OTHER ==
[~2019-08-08] VITALS: Ht 167.6 cm; Wt 87.7 kg
[~2019-08-08 20:30] MED LIST changes: -ACET325C5 PO; +ACET325C6 PO; +ALBU2.5V5 NEB; -BISA10SU2 RC; +BISA10SU4 RC; +CIPR500T PO; +GLIM1TAB PO; +GUAI-108 PO; +GUAI100L34 PO; +METF500T11 PO; +POTA10TA10 PO; +TRAM50TA PO
--- NOTE | 2019-08-08 21:09 | PHYS DOC ---
Past History Past Medical History: Arthritis, Bronchitis, CAD, COPD, Dementia, Depression, Diabetes, High Cholesterol, Hypertension, UTI, Other Additional Past Medical Histor: MS Past Surgical History: Appendectomy, Hysterectomy, Other Smoking: Non-smoker, Quit Greater Than 1 Year Alcohol Use: None Drug Use: None Adult General Chief Complaint Chief Complaint: FEVER HPI HPI 68-year-old female presents from nursing facility with altered mental status. She was reportedly last known well at 6 PM. She was not reported to have fever. Her stroke scale was negative free past. On arrival to the ED, she was alert and oriented to person and place. She did not know the year, but didn't know the president. She tells me that she hurts all over. She states that she has had a cough recently. She does not know that she had a fever. She was found to have fever on initial exam. She has no specific complaints. Review of Systems Review of Systems Constitutional: Fever[] Eyes: Denies change in visual acuity, redness, or eye pain [] HENT: Denies nasal congestion or sore throat [] Respiratory: Cough[] Cardiovascular: No additional information not addressed in HPI [] GI: Denies abdominal pain, nausea, vomiting, bloody stools or diarrhea [] : Denies dysuria or hematuria [] Musculoskeletal: Denies back pain or joint pain [] Integument: Denies rash or skin lesions [] Neurologic: Denies headache, focal weakness or sensory changes [] Endocrine: Denies polyuria or polydipsia [] All other systems were reviewed and found to be within normal limits, except as documented in this note. Current Medications Current Medications Current Medications Medications (Trade) Dose Ordered Sig/Estrada Start Time Stop Time Status Last Admin Dose Admin Acetaminophen (Tylenol) 1,000 mg 1X ONCE 08/08/19 20:45 08/08/19 20:46 UNV Sodium Chloride 2,670 ml @ 2,670 mls/hr Q1H 08/08/19 21:00 UNV Allergies Allergies Allergies Coded Allergies Type Severity Reaction Last Updated Verified I S O L A T I O N *CONTACT* Allergy Unknown 03/15/19 Yes NKMA Allergy Unknown 03/15/19 Yes Physical Exam Physical Exam Constitutional: Well developed, well nourished, obese, no acute distress, non- toxic appearance. [] HENT: Normocephalic, atraumatic, bilateral external ears normal, oropharynx moist, no oral exudates, nose normal. [] Eyes: PERRLA, EOMI, conjunctiva normal, no discharge. [] Neck: Normal range of motion, no tenderness, supple, no stridor. [] Cardiovascular:Heart rate regular rhythm, no murmur [] Lungs & Thorax: Bilateral breath sounds clear to auscultation [] Abdomen: Bowel sounds normal, soft, no tenderness, no masses, no pulsatile masses. [] Skin: Warm, dry, no erythema, no rash. [] Back: No tenderness, no CVA tenderness. [] Extremities: No tenderness, no cyanosis, no clubbing, ROM intact, no edema. [] Neurologic: Alert and oriented X 3, normal motor function, normal sensory function, no focal deficits noted. Repeating the phrase "your hurting me"after her IV stick. [] Psychologic: Affect normal, judgement normal, mood anxious. [] Current Patient Data Vital Signs Vital Signs Date Time Temp Pulse Resp B/P (MAP) Pulse Ox O2 Delivery O2 Flow Rate FiO2 08/08/19 20:42 101.1 116 18 94 Nasal Cannula 2.0 EKG EKG [] Radiology/Procedures Radiology/Procedures [] Course & Med Decision Making Course & Med Decision Making Pertinent Labs and Imaging studies reviewed. (See chart for details) On arrival the patient has a heart rate of 122, O2 93, altered mental status and a fever. She meets sepsis criteria. I have ordered a gram of Tylenol, 30 g/kg of IV fluids, 1 g Rocephin, blood cultures, lactic acid. Her blood pressure is within normal limits. Labs are pending. Radiology is pending. The patient's labs are unremarkable. Her chest x-rays negative for acute findings. Her urinalysis is significant for UTI. This appears to be urosepsis. I have given 1 g of Rocephin. We will admit her to the hospital. I spoke with Dr. Cuellar and he has accepted the patient for admission. 43 minutes critical care time was spent on this patient exclusive of other billable procedures. [] Dragon Disclaimer Dragon Disclaimer This electronic medical record was generated, in whole or in part, using a voice recognition dictation system. Date and Time of Assessment Date: Aug 08, 2019 Time: 20:59 Vital Signs Vital Signs Vital Signs Date Time Temp Pulse Resp B/P (MAP) Pulse Ox O2 Delivery O2 Flow Rate FiO2 08/08/19 20:42 101.1 116 18 94 Nasal Cannula 2.0 Temperature Source: Oral Respirations Respiratory Effort: Normal Respiratory Pattern: Normal Cardiovascular Pulse Rhythm: Regular HEART: No murmurs noted Lung Sounds Breath Sounds: Diminished Capillary Refill Capillary Refill: Rt Hand < 3 seconds Peripheral Pulse Pulse Location: Monitor Pulse Strength: Normal (2+) Pulse Assessment Method: Monitor Integumentary Skin: Warm Skin Moisture: Dry Skin Turgor: Normal Skin Color: no edema Fingernail Color: WNL Fluid Challenge: Is the fluid challenge complet: Yes IBW Target Volume Used: No BMI > 30: Yes Blood Culture TIme: 21:25 Time Antibiotics Given: 21:36 Departure Departure: Impression: Primary Impression: Sepsis Additional Impression: Urinary tract infection Disposition: ADMITTED INPATIENT Admitting Physician: Greg Steele Condition: GUARDED Referrals: LAILA HASSAN MD (PCP) Problem Qualifiers Primary Impression: Sepsis Sepsis type: sepsis due to unspecified organism Sepsis acute organ dysfunction status: without acute organ dysfunction Qualified Codes: A41.9 - Sepsis, unspecified organism Additional Impression: Urinary tract infection Urinary tract infection type: acute cystitis Hematuria presence: with hematuria Qualified Codes: N30.01 - Acute cystitis with hematuria BLAINE CUNNINGHAM DO Aug 08, 2019 21:09
[2019-08-08] MEDS ORDERED: ACETAMINOPHEN 500 MG TABLET PO ONE (21:15)
--- NOTE | 2019-08-08 21:19 | RAD ---
Exam: Chest one view INDICATION: Fever TECHNIQUE: Frontal view of the chest Comparisons: 03/13/2019 FINDINGS: The cardiomediastinal silhouette and pulmonary vessels are within normal limits. The lung and pleural spaces are clear. IMPRESSION: No acute cardiopulmonary process. Electronically signed by: Zeenat Mccabe MD (08/08/2019 9:16 PM) [facility]
[2019-08-08 21:21] LABS: BASO % 1 % (0-3); EOS # 0.2 x10^3/uL (0.0-0.7); EOS % 2 % (0-3); HEMATOCRIT 40.7 % (36.0-47.0); HEMOGLOBIN 13.2 g/dL (12.0-15.5); LYMPH # 2.3 x10^3/uL (1.0-4.8); LYMPH % 26 % (24-48); MEAN CORPUSCULAR HEMOGLOBIN 28 pg (25-35); MEAN CORPUSCULAR HGB CONC 33 g/dL (31-37); MEAN CORPUSCULAR VOLUME 87 fL (79-100); MONO # 0.5 x10^3/uL (0.0-1.1); MONO % 6 % (0-9); NEUT # 5.7 x10^3uL (1.8-7.7); NEUT % 65 % (31-73); PLATELET COUNT 248 x10^3/uL (140-400); RED BLOOD COUNT 4.68 x10^6/uL (3.50-5.40); RED CELL DISTRIBUTION WIDTH 15.9 % (11.5-14.5); WHITE BLOOD COUNT 8.7 x10^3/uL (4.0-11.0)
[2019-08-08] MEDS: IV NORMAL SALINE 1,000ML 1,000 ML IV SCH ×3 (21:23→22:49)
[2019-08-08] MEDS ORDERED: IV NORMAL SALINE 50ML 50 ML ONE (21:34)
[2019-08-08] MEDS ORDERED: cefTRIAXone SODIUM 1 GM VIAL ONE (21:35)
[2019-08-08 21:55] LABS: AMORPHOUS SEDIMENT,UR PRESENT /HPF; BACTERIA,URINE MANY /HPF (0-FEW); BILIRUBIN,URINE NEG (NEG); CLARITY,URINE CLOUDY; COLOR,URINE YELLOW; GLUCOSE,URINE NEG (NEG); NITRITE,URINE POS (NEG); SQUAMOUS EPITHELIAL CELL,UR FEW /LPF; UROBILINOGEN,URINE 0.2 mg/dL (0.2 mg/dL); WBC,URINE >40 /HPF (0-4)
[2019-08-08 22:04] LABS: ALBUMIN 3.1 g/dL (3.4-5.0); ALBUMIN/GLOBULIN RATIO 0.6 (1.0-1.7); CREATININE 0.9 mg/dL (0.6-1.0); GFR 62.3; POTASSIUM 4.1 mmol/L (3.5-5.1); TOTAL BILIRUBIN 0.2 mg/dL (0.2-1.0); TOTAL PROTEIN 8.4 g/dL (6.4-8.2)
[2019-08-08 23:10] VITALS: BP 108/61
[2019-08-08] MEDS ORDERED: ACETAMINOPHEN 325 MG TABLET PO PRN (23:30)
[2019-08-08] MEDS ORDERED: ONDANSETRON PF 4 MG/2 ML VIAL. IV PRN (23:30)
[2019-08-09] VITALS (22 sets, daily range): BP systolic 99–148; BP diastolic 60–77
[2019-08-09] MEDS ORDERED: ACETAMINOPHEN 650 MG PO PRN
[2019-08-09] MEDS ORDERED: MAGNESIUM HYDROXIDE 2,400 MG/30 ML ORAL.SUSP. PO PRN
[2019-08-09] MEDS ORDERED: ZOLPIDEM 5 MG TABLET. PO PRN
[2019-08-09] MEDS ORDERED: ALBUTEROL SULFATE 2.5 MG/3 ML NEBU. NEB PRN
[2019-08-09] MEDS ORDERED: guaiFENesin 300 MG/15 ML LIQUID PO PRN
[2019-08-09] MEDS ORDERED: traMADol 50 MG TABLET PO PRN
[2019-08-09] MEDS ORDERED: SODIUM PHOSPHATES 19/7GM 133 ML ENEMA. RC PRN
[2019-08-09] MEDS ORDERED: BISACODYL 10 MG SUPP.RECT RC PRN
[2019-08-09] MEDS ORDERED: ACETAMINOPHEN 500 MG TABLET PO PRN
[2019-08-09] MEDS ORDERED: METH113C6 TP (01:16)
[2019-08-09] MEDS ORDERED: POLY17PO5 PO (01:16)
[2019-08-09] MEDS ORDERED: D-MA300P PO (01:16)
[2019-08-09] MEDS ORDERED: NYST15CR TP (01:16)
[2019-08-09] MEDS ORDERED: OXYB5TAB10 PO (01:16)
[2019-08-09] MEDS ORDERED: LACT1CAP21 PO (01:16)
[2019-08-09] MEDS: HYDROcodone/APAP 7.5/325MG 1 TAB TABLET PO SCH ×3 (06:29→20:54)
[2019-08-09] MEDS: DOCUSATE SODIUM 100 MG CAPSULE PO SCH ×2 (08:20→20:54)
[2019-08-09] MEDS: SENNOSIDES 8.6 MG TABLET PO SCH (08:20)
[2019-08-09] MEDS: OXYBUTYNIN CHLORIDE 5 MG TABLET PO SCH ×3 (08:20→20:54)
[2019-08-09] MEDS: ASPIRIN 325 MG TABLET PO SCH (08:20)
[2019-08-09] MEDS: LACTOBACILLUS RHAMNOSUS GG 1 CAPSULE. PO SCH ×2 (08:21→20:54)
[2019-08-09] MEDS: GLIMEPIRIDE 2 MG TABLET PO SCH (08:21)
[2019-08-09] MEDS: POTASSIUM CHLORIDE 20 MEQ TABLET.ER. PO SCH (08:21)
[2019-08-09] MEDS: GABAPENTIN 300 MG CAPSULE. PO SCH ×3 (08:21→20:54)
[2019-08-09] MEDS: MIRABEGRON 25 MG TAB.ER.24H PO SCH ×2 (08:28→20:54)
[2019-08-09] MEDS: metFORMIN XR 500 MG TAB.ER.24H PO SCH ×2 (08:29→16:30)
[2019-08-09] MEDS: NYSTATIN 100,000 UNIT/GM TOPICAL CREAM 15GM TUBE. TP SCH ×2 (08:33→20:53)
[2019-08-09] MEDS: METHYL SALICYLATE/MENTHOL TOPICAL OINTMENT 57GM TUBE. TP SCH ×2 (08:33→20:53)
[2019-08-09] MEDS ORDERED: guaiFENesin DM 600/30MG 1 TAB TAB.ER.12H PO SCH (09:00)
--- NOTE | 2019-08-09 20:41 | HP ---
ADMIT DATE: 08/08/2019 HISTORY OF PRESENT ILLNESS: The patient is a 68-year-old female, the patient is resident of [facility], who was brought to the Emergency Room yesterday with altered mental status and fever and on arrival to the Emergency Room, she was alert, oriented to person and place, did not know the date. She was complaining that she hurts all over. On clinical examination, she was found to be febrile with temperature of 101.1. She was tachycardic and her lab work showed no leukocytosis. Her chemistry was unremarkable. Her lactic acid was 1.3; however, urinalysis showed urine was cloudy and there was moderate amount of leukocyte esterase and more than 40 wbc's and too many bacteria and she was admitted with altered mental status and sepsis with likely due to urinary tract infection. She was started on ceftriaxone 1 g IV daily together with IV Levaquin and continued all his other medications. PAST MEDICAL HISTORY: Significant for hypertension, hyperlipidemia, longstanding multiple sclerosis, peripheral neuropathy, chronic constipation, osteoarthritis, osteoporosis, urinary retention and incontinence and recurrent UTI. PAST SURGICAL HISTORY: Significant for right cataract extraction, oophorectomy and hysterectomy. ALLERGIES: She has no known drug allergies. FAMILY HISTORY: She has one brother older sister with heart disease. Both of her parents are . SOCIAL HISTORY: She is , has 3 children. She is an ex-smoker, does not drink alcohol or use any recreational drugs. She has been at the [facility] for the last 4 years because of her multiple sclerosis. MEDICATIONS: She is currently on following medications: She is on albuterol sulfate by nebulizer every 4 hours, aspirin 325 mg daily, muscle rub cream apply topically twice a day, hydrocodone/APAP 7.5/325 one tablet every 8 hours as needed, tramadol 50 mg every 6 hours, Tylenol 650 mg every 4 hours as needed, gabapentin 300 mg 3 times a day, potassium chloride 20 mEq once a day. ____ 100 mg per 5 mL, she takes 100 mg p.o. q. 6 hourly. Bisacodyl 10 mg rectally daily p.r.n. for constipation, Colace 100 mg twice a day, milk of magnesia 30 mL p.o. daily p.r.n. for constipation. She is on phosphate enema 130 mL rectally daily p.r.n. for constipation, polyethylene glycol 17 grams daily for every other day, senna 1 tablet daily, lactobacillus rhamnosus probiotics 1 tablet twice a day, metformin 500 mg extended release twice a day, glimepiride 2 mg daily, Nystatin cream apply topically twice a day, oxybutynin chloride 5 mg 3 times a day, Myrbetriq 25 mg p.o. b.i.d., ____ powder applied 4 times a day for recurrent UTI. PHYSICAL EXAMINATION: GENERAL: On arrival to the Emergency Room, she was clearly ____, tachypneic, but no jaundice, cyanosis or thyromegaly. No jugular venous distention. No limb edema. VITAL SIGNS: Her heart rate was 117, blood pressure was 109/60, temperature was 101.1, respiratory rate was 18 and oxygen saturation was ____. HEAD, EYES, EARS, NOSE AND THROAT: Normocephalic, atraumatic. NECK: Supple. HEART: Showed normal first and second heart sounds with no gallop, rub or murmur. CHEST: Clear to auscultation. No crepitation or rhonchi. ABDOMEN: Distended, soft, nontender. NEUROLOGIC: She is awake, alert, responding appropriately. All cranial nerves intact. EXTREMITIES: She moves upper extremities without difficulty. She has paraplegia, which she is mostly bedbound. LABORATORY WORK: On admission showed white cell count of 8700, hemoglobin 13, hematocrit 40, MCV 87 and platelet count 248,000. Her chemistry showed sodium 138, potassium 4.1, chloride 100, bicarbonate 28, anion gap of 10, BUN 13, creatinine was 0.9, estimated GFR was 62 mL per minute. Her glucose was 112. Lactic acid was 1.3, calcium was 9. Total bilirubin, AST, ALT, alkaline phosphatase were normal. Total protein was 8.4, albumin was ____. Urinalysis, urine was yellow, cloudy with a pH of 5.5, specific gravity of 1.010. There was moderate amount of protein, negative for glucose and ketones, trace amount of blood, positive for nitrite with moderate amount of leukocyte esterase, 1-2 rbc's, more than 40 wbc's, large amount of bacteria. His urine and blood were sent for culture and sensitivity. She was admitted and was started on ceftriaxone 1 g IV daily as well as Levaquin 500 mg once a day and was continued on all her other medications. ARMOND PEREIRA MD DR: HONORIO/nina JOB#: [id number] / [id number]
[2019-08-09] MEDS ORDERED: TOLTERODINE TARTRATE 4 MG PO SCH (21:00)
[2019-08-10] VITALS (15 sets, daily range): BP systolic 98–125; BP diastolic 51–93
--- NOTE | 2019-08-10 03:34 | PN ---
DATE: 08/09/2019 The patient is resting slightly propped up in bed, in no apparent distress. She is definitely more awake, alert, and oriented; however, she is now stable hemodynamically, afebrile. PHYSICAL EXAMINATION: GENERAL: When I examined her, she looked pale, not jaundiced, cyanosed, no thyromegaly. No jugular venous distension. No limb edema. VITAL SIGNS: Her heart rate was 94, blood pressure was 135/76, temperature was 98.6, respiratory rate was 16, and oxygen saturation was 94% on 2 liters of oxygen by nasal cannula. HEAD, EYES, EARS, NOSE AND THROAT: Showed normocephalic, atraumatic. NECK: Supple. HEART: Showed normal first and second heart sounds with no murmur. CHEST: Clear to auscultation. No crepitation or rhonchi. ABDOMEN: Distended, soft, nontender. NEUROLOGIC: She is awake, alert, responding appropriately. All her cranial nerves are intact. She moves upper extremities without difficulty ____ paraplegia secondary to longstanding multiple sclerosis. She is mostly bedbound, chair bound. Her intake was 2900, output was 1500. LABORATORY DATA: No lab work done today. ASSESSMENT: In summary, this is a 68-year-old who was admitted yesterday with altered mental status, urinary tract infection. She has multiple other medical problems including longstanding multiple sclerosis with functional paraplegia, hypertension, hyperlipidemia, peripheral neuropathy. PLAN: To continue with IV antibiotic. I am not sure that she needs 2 antibiotics for this, probably continue with IV ceftriaxone and discontinue the Levaquin and await the result of culture and sensitivity. ARMOND PEREIRA MD DR: HONORIO/nina JOB#: [id number] / [id number]
[2019-08-10] MEDS: HYDROcodone/APAP 7.5/325MG 1 TAB TABLET PO SCH ×3 (06:15→21:53)
[2019-08-10 06:21] LABS: HEMATOCRIT 34.7 % (36.0-47.0); HEMOGLOBIN 11.4 g/dL (12.0-15.5); RED BLOOD COUNT 3.91 x10^6/uL (3.50-5.40); RED CELL DISTRIBUTION WIDTH 15.7 % (11.5-14.5); WHITE BLOOD COUNT 6.9 x10^3/uL (4.0-11.0)
[2019-08-10 06:32] LABS: ALBUMIN 2.3 g/dL (3.4-5.0); ALBUMIN/GLOBULIN RATIO 0.5 (1.0-1.7); ALK PHOS 42 U/L (46-116); ANION GAP 8 (6-14); AST (SGOT) 10 U/L (15-37); BLOOD UREA NITROGEN 9 mg/dL (7-20); BUN/CREATININE RATIO 13 (6-20); CALCIUM 8.5 mg/dL (8.5-10.1); CARBON DIOXIDE 28 mmol/L (21-32); CHLORIDE 104 mmol/L (98-107); CREATININE 0.7 mg/dL (0.6-1.0); GFR 83.2; GLUCOSE 96 mg/dL (70-99); POTASSIUM 3.7 mmol/L (3.5-5.1); SODIUM 140 mmol/L (136-145); TOTAL BILIRUBIN 0.2 mg/dL (0.2-1.0); TOTAL PROTEIN 7.4 g/dL (6.4-8.2)
[2019-08-10 06:34] LABS: ALT (SGPT) < 6 U/L (14-59)
[2019-08-10] MEDS: ASPIRIN 325 MG TABLET PO SCH (08:07)
[2019-08-10] MEDS: GLIMEPIRIDE 2 MG TABLET PO SCH (08:07)
[2019-08-10] MEDS: metFORMIN XR 500 MG TAB.ER.24H PO SCH ×2 (08:07→17:04)
[2019-08-10] MEDS: GABAPENTIN 300 MG CAPSULE. PO SCH ×3 (08:07→21:44)
[2019-08-10] MEDS: POTASSIUM CHLORIDE 20 MEQ TABLET.ER. PO SCH (08:07)
[2019-08-10] MEDS: DOCUSATE SODIUM 100 MG CAPSULE PO SCH ×2 (08:08→21:45)
[2019-08-10] MEDS: SENNOSIDES 8.6 MG TABLET PO SCH (08:08)
[2019-08-10] MEDS: OXYBUTYNIN CHLORIDE 5 MG TABLET PO SCH ×3 (08:09→21:45)
[2019-08-10] MEDS: LACTOBACILLUS RHAMNOSUS GG 1 CAPSULE. PO SCH ×2 (08:10→21:44)
[2019-08-10] MEDS: MIRABEGRON 25 MG TAB.ER.24H PO SCH ×2 (08:18→21:44)
[2019-08-10] MEDS: NYSTATIN 100,000 UNIT/GM TOPICAL CREAM 15GM TUBE. TP SCH ×2 (08:19→21:45)
[2019-08-10] MEDS: METHYL SALICYLATE/MENTHOL TOPICAL OINTMENT 57GM TUBE. TP SCH ×2 (08:19→21:45)
[2019-08-10] MEDS ORDERED: FLU VAX QS 2019-20 (36MOS+)/PF 0.5 ML SYRINGE. VAX IM ONE (09:00)
[2019-08-11] VITALS (8 sets, daily range): BP systolic 103–132; BP diastolic 52–68
[2019-08-11] MEDS: HYDROcodone/APAP 7.5/325MG 1 TAB TABLET PO SCH ×3 (06:08→21:29)
--- NOTE | 2019-08-11 07:32 | PN ---
DATE: 08/10/2019 SUBJECTIVE: The patient is resting, slightly propped up in bed, in no apparent distress. She is definitely more awake, alert, responding appropriately. She was originally admitted with altered mental status that has completely resolved. Her blood cultures have grown gram-negative rods in 2 sets out of drawn ____ positive. Her urine culture is still pending at the time of this dictation. The patient herself denied any complaint. The nursing staff did not voice any concern except that she is retaining urine. OBJECTIVE: GENERAL: When I examined her, she looked pale, but no jaundice, cyanosis or thyromegaly. No jugular venous distention. No lower limb edema. VITAL SIGNS: Her heart rate was 93, blood pressure was 112/60, temperature was 98.9, respiratory rate was 18 and oxygen saturation was 96% on 2 liters of oxygen by nasal cannula. HEAD, EYES, EARS, NOSE AND THROAT: Normocephalic, atraumatic. NECK: Supple. HEART: Showed normal first and second heart sounds with no gallop, rub or murmur. CHEST: Clear to auscultation. No crepitation or rhonchi. ABDOMEN: Distended, soft, nontender. NEUROLOGIC: She is awake, alert, responding appropriately. All cranial nerves intact. She moves upper extremities without difficulty. She has functional paraplegia with neurogenic bladder. Her intake was 2900, output was 1500. LABORATORY DATA: As of this morning, her white cell count was 6900, hemoglobin 11, hematocrit 34, MCV 89 and platelet count of 194,000. Her chemistry showed a serum sodium 140, potassium 3.7, chloride 104, bicarbonate 28, anion gap of 8, BUN 9, creatinine 0.7. Estimated GFR was 83 mL per minute. Her glucose was 96, calcium was 8.5. Her serum bilirubin, AST, ALT, alkaline phosphatase were normal. Total protein was 7.4, albumin 2.3. ASSESSMENT: 1. Altered mental status, resolved. 2. Urinary tract infection with growth of Gram-negative rods in her blood culture. Identification and sensitivity is still pending. 3. Other medical problems including: A. Longstanding multiple sclerosis, functional paraplegia. B. Neurogenic bladder. C. Hypertension. D. Hyperlipidemia. E. Peripheral neuropathy. PLAN: To continue with IV antibiotic. We will straight cath her if she continues to retain urine. Meanwhile, we will continue with all other medications. Once we have the cultures and sensitivity, we will switch her to oral antibiotic and she can be discharged back to [facility]. ARMOND PEREIRA MD DR: Juanita JOB#: [id number] / [id number]
[2019-08-11] MEDS: DOCUSATE SODIUM 100 MG CAPSULE PO SCH ×2 (08:47→21:29)
[2019-08-11] MEDS: GLIMEPIRIDE 2 MG TABLET PO SCH (08:47)
[2019-08-11] MEDS: ASPIRIN 325 MG TABLET PO SCH (08:47)
[2019-08-11] MEDS: SENNOSIDES 8.6 MG TABLET PO SCH (08:47)
[2019-08-11] MEDS: LACTOBACILLUS RHAMNOSUS GG 1 CAPSULE. PO SCH ×2 (08:47→21:30)
[2019-08-11] MEDS: MIRABEGRON 25 MG TAB.ER.24H PO SCH ×2 (08:47→21:29)
[2019-08-11] MEDS: POTASSIUM CHLORIDE 20 MEQ TABLET.ER. PO SCH (08:47)
[2019-08-11] MEDS: GABAPENTIN 300 MG CAPSULE. PO SCH ×3 (08:48→21:30)
[2019-08-11] MEDS: OXYBUTYNIN CHLORIDE 5 MG TABLET PO SCH ×3 (08:48→21:30)
[2019-08-11] MEDS: metFORMIN XR 500 MG TAB.ER.24H PO SCH ×2 (08:48→18:50)
[2019-08-11] MEDS: NYSTATIN 100,000 UNIT/GM TOPICAL CREAM 15GM TUBE. TP SCH ×2 (08:50→21:30)
[2019-08-11] MEDS: METHYL SALICYLATE/MENTHOL TOPICAL OINTMENT 57GM TUBE. TP SCH ×2 (08:50→21:31)
[2019-08-12 02:05] VITALS: BP 108/64
[2019-08-12 06:22] LABS: ALBUMIN 2.4 g/dL (3.4-5.0); ALBUMIN/GLOBULIN RATIO 0.5 (1.0-1.7); ALK PHOS 50 U/L (46-116); ANION GAP 8 (6-14); AST (SGOT) 12 U/L (15-37); BLOOD UREA NITROGEN 11 mg/dL (7-20); BUN/CREATININE RATIO 16 (6-20); CALCIUM 8.8 mg/dL (8.5-10.1); CARBON DIOXIDE 28 mmol/L (21-32); CHLORIDE 104 mmol/L (98-107); CREATININE 0.7 mg/dL (0.6-1.0); GLUCOSE 80 mg/dL (70-99); POTASSIUM 4.1 mmol/L (3.5-5.1); SODIUM 140 mmol/L (136-145); TOTAL BILIRUBIN 0.1 mg/dL (0.2-1.0); TOTAL PROTEIN 7.6 g/dL (6.4-8.2)
[2019-08-12 06:24] LABS: HEMATOCRIT 34.6 % (36.0-47.0); HEMOGLOBIN 11.1 g/dL (12.0-15.5); RED BLOOD COUNT 3.89 x10^6/uL (3.50-5.40); RED CELL DISTRIBUTION WIDTH 15.6 % (11.5-14.5); WHITE BLOOD COUNT 5.1 x10^3/uL (4.0-11.0)
[2019-08-12 06:25] VITALS: BP 137/64
[2019-08-12 06:25] LABS: ALT (SGPT) < 6 U/L (14-59)
[2019-08-12] MEDS: HYDROcodone/APAP 7.5/325MG 1 TAB TABLET PO SCH ×2 (06:26→14:12)
[2019-08-12] MEDS: METHYL SALICYLATE/MENTHOL TOPICAL OINTMENT 57GM TUBE. TP SCH (09:00)
[2019-08-12] MEDS: NYSTATIN 100,000 UNIT/GM TOPICAL CREAM 15GM TUBE. TP SCH (09:00)
[2019-08-12] MEDS: GLIMEPIRIDE 2 MG TABLET PO SCH (10:55)
[2019-08-12] MEDS: ASPIRIN 325 MG TABLET PO SCH (10:55)
[2019-08-12] MEDS: OXYBUTYNIN CHLORIDE 5 MG TABLET PO SCH ×2 (10:55→14:00)
[2019-08-12] MEDS: POTASSIUM CHLORIDE 20 MEQ TABLET.ER. PO SCH (10:56)
[2019-08-12] MEDS: GABAPENTIN 300 MG CAPSULE. PO SCH ×2 (10:56→14:12)
[2019-08-12] MEDS: metFORMIN XR 500 MG TAB.ER.24H PO SCH (10:56)
[2019-08-12] MEDS: LACTOBACILLUS RHAMNOSUS GG 1 CAPSULE. PO SCH (10:57)
[2019-08-12] MEDS: SENNOSIDES 8.6 MG TABLET PO SCH (10:57)
[2019-08-12] MEDS: DOCUSATE SODIUM 100 MG CAPSULE PO SCH (10:57)
[2019-08-12] MEDS: MIRABEGRON 25 MG TAB.ER.24H PO SCH (10:58)
[2019-08-12 11:00] VITALS: BP 137/57
--- NOTE | 2019-08-12 11:32 | PN ---
DATE: 08/11/2019 SUBJECTIVE: The patient is resting slightly propped up in bed, in no apparent respiratory distress. On questioning her, she denied any complaints. The nursing staff did not voice any concerns that she had an uneventful night. PHYSICAL EXAMINATION: GENERAL: When I examined her, she looked pale, but no jaundice, cyanosis or thyromegaly. No jugular venous distention. No limb edema. VITAL SIGNS: Her heart rate was ____, blood pressure was 106/55, temperature was 98.4, respiratory rate was 23, and oxygen saturation was 95% on 2 liters of oxygen. HEAD, EYES, EARS, NOSE AND THROAT: Showed normocephalic, atraumatic. NECK: Supple. HEART: Showed normal first and second heart sounds. No gallop or murmur. CHEST: Clear to auscultation. No crepitation or rhonchi. ABDOMEN: Distended, soft, nontender. No guarding or rigidity. No organomegaly. All hernial orifices intact. Bowel sounds normal. NEUROLOGIC: She was awake, alert, responding appropriately. All cranial nerves intact. She moves upper extremities without difficulty. She has functional paraplegia due to longstanding multiple sclerosis. Her intake was 440, output was 1500. LABORATORY DATA: No lab work done this morning. As of yesterday, her BUN was 9, creatinine 0.7. Her hemoglobin was 11, hematocrit 34 with normal white cell count and platelets. Her blood cultures have grown gram-negative rods. ____ sensitivity is still pending at the time of this dictation. ASSESSMENT: 1. Gram-negative bacteremia. 2. Altered mental status, resolved. 3. Urinary tract infection. 4. Other medical problems include: A. Longstanding multiple sclerosis with functional paraplegia. B. Neurogenic bladder. C. Hypertension. D. Hyperlipidemia. E. Peripheral neuropathy. PLAN: To continue with IV antibiotic. We will straight catheterize her if she continues to retain urine. Meanwhile, we will continue with other medication. Once we have the identification and sensitivity, she will be switched to oral antibiotic and can be discharged back to [facility]. ARMOND PEREIRA MD DR: HONORIO/nina JOB#: [id number] / [id number]
[2019-08-12] MEDS ORDERED: CEFD300C PO (12:58)
--- NOTE | 2019-08-12 13:00 | DISCH ---
DISCHARGE ORDERS DISCHARGE DATE: Aug 12, 2019 FINAL DIAGNOSIS altered mental status urinary tract infection Long standing ms CONDITION AT DISCHARGE: Stable Code Status: DNR/DNI SNF STAY <30 DAYS: Yes POST DISCHARGE ORDERS: ACTIVITY ORDERS: Activity as tolerated WEIGHT BEARING STATUS: As tolerated DIET AFTER DISCHARGE: Regular TREATMENT/EQUIPMENT ORDERS: ADAPTIVE EQUIPMENT NEEDED: None DISCHARGE MEDICATIONS: Home Meds Active Scripts Cefdinir (CEFDINIR) 300 Mg Capsule, 1 CAP PO BID for uti for 6 Days, #12 CAP Prov:ARMOND PEREIRA MD 08/12/19 Metformin Hcl (METFORMIN HCL ER) 500 Mg Tab.er.24h, 1 TAB PO BID for dm for 30 Days, #60 TAB 3 Refills Prov:ARMOND PEREIRA MD 03/16/19 Glimepiride (AMARYL) 1 Mg Tablet, 2 TAB PO DAILY for dm for 30 Days, #60 TAB 5 Refills Prov:ARMOND PEREIRA MD 03/16/19 Reported Medications Nystatin (NYSTATIN) 15 Gm Cream..g., 1 TROY TP BID for paola area yeast, #30 GM 08/09/19 Methyl Salicylate/Menthol (MUSCLE RUB CREAM) 113 Gm Cream..g., 1 TROY TP BID for muscle pain, EACH apply to both lower legs and lower back 08/09/19 Oxybutynin Chloride (OXYBUTYNIN CHLORIDE) 5 Mg Tablet, 5 MG PO TID for urinary incontinence, TAB 08/09/19 Polyethylene Glycol 3350 (MIRALAX) 17 Gm Powd.pack, 17 GM PO QODAY for constipation, PKT 08/09/19 D-Mannose (Mannxtra) 300 Gm Powder, 500 MG PO QID for recurrent UTI, MISC 08/09/19 Lactobacillus Rhamnosus Gg (CULTURELLE) 1 Each Capsule, 1 EACH PO BID for supplement, CAP 08/09/19 Albuterol Sulfate (ALBUTEROL SULFATE NEB SOLN ) 2.5 Mg/3 Ml Vial.neb, 1 VIAL NEB PRN Q4HRS PRN for COUGH, #50 VIAL 03/13/19 Tramadol Hcl (TRAMADOL HCL) 50 Mg Tablet, 50 MG PO PRN Q6HRS PRN for PAIN, TAB 03/13/19 Guaifenesin (TUSSIN) 100 Mg/5 Ml Liquid, 100 MG PO Q6HRS PRN for CONGESTION, LIQUID 03/13/19 Potassium Chloride (POTASSIUM CHLORIDE) 10 Meq Tablet.er, 20 MEQ PO DAILY for low potassium, TAB 03/13/19 Magnesium Hydroxide (MILK OF MAGNESIA) 2,400 Mg/10 Ml Oral.susp, 2400 MG PO PRN DAILY PRN for CONSTIPATION, LIQUID 12/16/18 Na Phos,M-B/Na Phos,Di-Ba (ENEMA READY TO USE) 133 Ml Enema, 133 ML RC PRN DAILY PRN for CONSTIPATION, EACH 12/16/18 Bisacodyl (BISACODYL) 10 Mg Supp.rect, 10 MG RC PRN DAILY PRN for CONSTIPATION, SUPP.RECT 0 Refills 12/16/18 Acetaminophen (Tylenol) 325 Mg Capsule, 650 MG PO PRN Q4HRS PRN for PAIN / TEMP, CAP 12/16/18 Sennosides (SENNA) 8.6 Mg Tablet, 8.6 MG PO DAILY for constipation, TAB 12/16/18 Mirabegron (MYRBETRIQ) 25 Mg Tab.er.24h, 25 MG PO BID for overactive bladder, TAB.SR 12/16/18 Hydrocodone Bit/Acetaminophen (HYDROCODONE-APAP 7.5-325 ) 1 Each Tablet, 1 TAB PO Q8HRS for PAIN, TAB 0 Refills 12/16/18 Gabapentin (GABAPENTIN ) 300 Mg Capsule, 300 MG PO TID for NEUROGENIC PAIN, CAP 12/16/18 Docusate Sodium (DOCUSATE SODIUM) 100 Mg Capsule, 100 MG PO BID for Constipation, CAP 12/16/18 Aspirin (ASPIRIN) 325 Mg Tablet, 325 MG PO DAILY for heart health 12/06/13 Discontinued Reported Medications Guaifenesin/Dextromethorphan (MUCINEX DM ER 600-30 MG TABLET) 1 Each Tab.er.12h, 1 TAB PO BID for cough, #20 TAB 03/13/19 Tolterodine Tartrate (DETROL LA) 4 Mg Cap.er.24h, 4 MG PO QHS for overactive bladder, CAP.SR 12/16/18 ARMOND PEREIRA MD Aug 12, 2019 13:00
--- NOTE | 2019-08-13 00:17 | DS ---
DATE OF DISCHARGE: 08/12/2019 HOSPITAL COURSE: The patient is a 69-year-old female, who lives in [facility], was admitted on 08/08/2019 with altered mental status and fever. Her temperature was 101.1. She was acting differently and confused on arrival, tachycardic. Lab work showed no leukocytosis; however, her urinalysis showed that she had moderate amount of leukocyte esterase and 40 wbcs. She was started on intravenous ceftriaxone, intravenous fluid, and intravenous Levaquin, and she did actually extremely well. She remained hemodynamically stable and afebrile throughout her stay here. Her white cell count remained within normal range as well as her kidney function. Her blood and urine culture has grown Gram-negative rods identified as Escherichia coli. As she has remained stable, afebrile with normal white cell count, and has responded well to ceftriaxone, decision was made to discharge her back to ____. PHYSICAL EXAMINATION: GENERAL: When I saw her today, she looked well and was clearly in no apparent respiratory distress. No pallor, jaundice, cyanosis, or thyromegaly. No jugular venous distention. No limb edema. VITAL SIGNS: Her heart rate was 80, blood pressure was 108/64, temperature was 98.4, respiratory rate was 18, and oxygen saturation was 96% on 2 liters of oxygen. Her intake over the last 24 hours was 970 and output was 900. HEENT: Normocephalic and atraumatic. NECK: Supple. HEART: Showed normal first and second heart sounds with no gallop, rub, or murmur. CHEST: Clear to auscultation. No crepitation or rhonchi. ABDOMEN: Distended, soft, nontender. NEUROLOGIC: She is awake, alert, responding appropriately. All cranial nerves are intact. She moves all extremities well without difficulty, mostly bedbound. LABORATORY DATA: Her lab work this morning showed a white cell count 5100, hemoglobin 11, hematocrit 34, MCV 89, and platelet count 212,000. Sodium 140, potassium 4.1, chloride 104, bicarbonate 28, anion gap of 8, BUN 11, creatinine 0.7, estimated GFR was 83 mL per minute. Her glucose was 80, calcium was 8.8. Total bilirubin, AST, ALT, alkaline phosphatase were normal. Total protein 7.6, albumin 2.4. Urinalysis showed that she was positive for nitrites and there were more than 40 wbc's as well as too many bacteria. DISCHARGE MEDICATIONS: The patient was discharged back with cefdinir 300 mg twice a day for 6 more days; should continue also Tylenol 650 mg every 4 hours, albuterol sulfate 2.5 mg by nebulizer every 4 hours as needed, aspirin 325 mg once a day, bisacodyl 10 mg rectally daily p.r.n. for constipation, Ranexa 500 mg 4 times a day, Colace 100 mg twice a day, gabapentin 300 mg 3 times a day, glimepiride or Amaryl 2 mg daily, guaifenesin 100 mg p.o. q.6 hourly, hydrocodone/APAP 7.5/325 one tablet every 8 hours, lactobacillus rhamnosus 1 capsule 3 tablets twice a day, milk of magnesia 30 mL p.o. daily p.r.n. for constipation, metformin 500 mg twice a day, Myrbetriq 25 mg twice a day, Fleet enemas 133 mL rectally daily p.r.n. for constipation, nystatin cream apply topically twice a day, oxybutynin 5 mg 3 times a day, polyethylene glycol 17 grams every other day, potassium chloride 20 mEq daily, senna 1 tablet daily, and tramadol 50 mg every 6 hours. FINAL DISCHARGE DIAGNOSES: 1. Altered mental status, resolved. 2. Gram-negative bacteremia. 3. Urinary tract infection. 4. The patient has multiple other medical problems, which include; A. Longstanding multiple sclerosis with functional paraplegia. B. Neurogenic bladder. C. Hypertension. D. Hyperlipidemia. E. Peripheral neuropathy. F. The patient has grown more than 100,000 colony forming units per mL of Escherichia coli for which she would continue treatment with oral cefdinir. ARMOND PEREIRA MD DR: HONORIO/nina JOB#: [id number] / [id number]
== END 2019-08-12 15:23 | DRG 871 ==
LOC: ER 20:30 → ICU 23:04
PROVIDERS: ADMIT Family Medicine; ATTEND Internal Medicine
DX: A41.9 Sepsis, unspecified organism (principal); E43 Unspecified severe protein-calorie malnutrition; N39.0 Urinary tract infection, site not specified; E78.00 Pure hypercholesterolemia, unspecified; I25.10 Atherosclerotic heart disease of native coronary artery without angina pectoris; G35 Multiple sclerosis; I10 Essential (primary) hypertension; E78.5 Hyperlipidemia, unspecified; N31.9 Neuromuscular dysfunction of bladder, unspecified; J44.9 Chronic obstructive pulmonary disease, unspecified; M19.90 Unspecified osteoarthritis, unspecified site; F32.9 Major depressive disorder, single episode, unspecified; F03.90 Unspecified dementia, unspecified severity, without behavioral disturbance, psychotic disturbance, mood disturbance, and anxiety; Z87.440 Personal history of urinary (tract) infections; Z90.49 Acquired absence of other specified parts of digestive tract; Z90.710 Acquired absence of both cervix and uterus; E11.42 Type 2 diabetes mellitus with diabetic polyneuropathy; Z82.49 Family history of ischemic heart disease and other diseases of the circulatory system; Z87.891 Personal history of nicotine dependence; B96.20 Unspecified Escherichia coli [E. coli] as the cause of diseases classified elsewhere; F44.4 Conversion disorder with motor symptom or deficit; M81.0 Age-related osteoporosis without current pathological fracture; Z98.41 Cataract extraction status, right eye; Z68.31 Body mass index [BMI] 31.0-31.9, adult
CPT/HCPCS: 36415; 51702; 71045; 80053; 81001; 82947; 83605; 85025; 85027; 87040; 87077; 87086; 87186; 87205; 90471; 90686; 96365; J0696; J1956; 97110; 97530; 97535; 99291-25; J7030

== ENCOUNTER 2019-08-22 19:33 | Inpatient (IN) | payer MEDICARE, OTHER ==
[~2019-08-22] VITALS: Ht 167.6 cm; Wt 85.8 kg
[~2019-08-22 19:33] MED LIST changes: +CEFD300C PO; +D-MA300P PO; +LACT1CAP21 PO; +METH113C6 TP; +NYST15CR TP; +OXYB5TAB10 PO; +POLY17PO5 PO
--- NOTE | 2019-08-22 20:23 | RAD ---
RS Compliance Statement: One or more of the following individualized dose reduction techniques were utilized for this examination: 1. Automated exposure control 2. Adjustment of the mA and/or kV according to patient size 3. Use of iterative reconstruction technique CT head without contrast 08/22/2019 7:55 PM INDICATION: Code stroke COMPARISON: CT head 03/13/2019 TECHNIQUE: Multiple axial CT images of the head were obtained from skull base through the vertex without intravenous contrast. FINDINGS: Head: Motion limits evaluation. Ventricles, sulci and basal cisterns are prominent compatible with mild generalized cerebral volume loss. Low-attenuation in the periventricular white matter is suggestive of chronic small vessel ischemic changes. Remote lacunar infarcts are suspected within the thalami bilaterally. Focal high attenuation along the left frontal lobe is likely volume averaging with adjacent skull given motion artifact. There is no hydrocephalus. Mcgowan-white matter differentiation is normal. There is no acute intracranial hemorrhage. There is no mass, mass effect or midline shift. Posterior fossa is normal in appearance. Visualized portions of the orbits are normal. Paranasal sinuses are well aerated. Mastoid air cells are well aerated. Scalp and calvaria are normal. IMPRESSION: No acute intracranial hemorrhage. Low-attenuation in the periventricular white matter is suggestive of chronic small vessel ischemic changes. Findings may be associated with underlying multiple sclerosis. Suspect remote lacunar infarcts in bilateral thalami. These findings are not well visualized in the prior CT may have developed in the interim. FOR INTERNAL CODING PURPOSES Critical result: Findings discussed with BLAINE BAUMAN at 08/22/2019 8:18 PM. RESULT CODE: (C) Electronically signed by: Yessica Tellez MD (08/22/2019 8:21 PM) [facility]
[2019-08-22 20:55] LABS: BASO # 0.1 x10^3/uL (0.0-0.2); BASO % 1 % (0-3); EOS # 0.2 x10^3/uL (0.0-0.7); EOS % 2 % (0-3); HEMATOCRIT 39.5 % (36.0-47.0); LYMPH # 1.6 x10^3/uL (1.0-4.8); LYMPH % 15 % (24-48); MEAN CORPUSCULAR HEMOGLOBIN 29 pg (25-35); MEAN CORPUSCULAR HGB CONC 33 g/dL (31-37); MEAN CORPUSCULAR VOLUME 87 fL (79-100); MONO # 0.5 x10^3/uL (0.0-1.1); MONO % 4 % (0-9); NEUT # 8.1 x10^3uL (1.8-7.7); NEUT % 78 % (31-73); PLATELET COUNT 269 x10^3/uL (140-400); RED BLOOD COUNT 4.52 x10^6/uL (3.50-5.40); RED CELL DISTRIBUTION WIDTH 15.8 % (11.5-14.5); WHITE BLOOD COUNT 10.4 x10^3/uL (4.0-11.0)
--- NOTE | 2019-08-22 20:55 | RAD ---
CHEST AP ONLY 08/22/2019 7:55 PM INDICATION: Cough, congestion and altered mental status COMPARISON: 08/08/2019 TECHNIQUE: Portable frontal view of the chest is provided. FINDINGS: The cardiomediastinal silhouette is similar in appearance. Left retrocardiac density may represent subsegmental atelectasis versus pulmonary infiltrate. There are no significant pleural effusions. There is no pulmonary vascular congestion. No pneumothorax. IMPRESSION: Left retrocardiac density may represent subsegmental atelectasis versus pulmonary infiltrate. Short-term follow-up radiograph may be of benefit to ensure resolution. Electronically signed by: Yessica Tellez MD (08/22/2019 8:52 PM) [facility]
[2019-08-22 21:18] LABS: ALBUMIN 2.9 g/dL (3.4-5.0); ALBUMIN/GLOBULIN RATIO 0.6 (1.0-1.7); C REACTIVE PROTEIN 36.1 mg/L (0-3.3); CALCIUM 8.5 mg/dL (8.5-10.1); CREATININE 0.9 mg/dL (0.6-1.0); GFR 62.1; POTASSIUM 4.1 mmol/L (3.5-5.1); TOTAL BILIRUBIN 0.2 mg/dL (0.2-1.0)
[2019-08-22] MEDS ORDERED: IV NORMAL SALINE 1,000ML 1,000 ML IV ONE (21:45)
[2019-08-22 21:55] LABS: BILIRUBIN,URINE NEG (NEG); CLARITY,URINE CLOUDY; COLOR,URINE YELLOW; GLUCOSE,URINE NEG (NEG); NITRITE,URINE POS (NEG); UROBILINOGEN,URINE 0.2 mg/dL (0.2 mg/dL)
[2019-08-22 21:56] LABS: BACTERIA,URINE MANY /HPF (0-FEW); SQUAMOUS EPITHELIAL CELL,UR OCC /LPF; WBC,URINE >40 /HPF (0-4)
[2019-08-22] MEDS ORDERED: methylPREDNISolone SOD SUCC PF 125 MG/2 ML VIAL. IV ONE (22:15)
[2019-08-22] MEDS ORDERED: IV NORMAL SALINE 50ML 50 ML ONE (22:21)
[2019-08-22] MEDS ORDERED: cefTRIAXone SODIUM 1 GM VIAL ONE (22:21)
--- NOTE | 2019-08-22 23:19 | ED.ADGEN ---
Past History Past Medical History: Arthritis, Bronchitis, CAD, COPD, Dementia, Depression, Diabetes, High Cholesterol, Hypertension, UTI, Other Additional Past Medical Histor: MS Past Surgical History: No Surgical History, Appendectomy, Hysterectomy Smoking: Non-smoker, Quit Greater Than 1 Year Alcohol Use: None Drug Use: None Adult General Chief Complaint Chief Complaint Mental status changes HPI HPI Patient is a 69-year-old female with history of multiple sclerosis who presents with mental status changes, right facial droop, right upper extremity weakness and tachycardia. Symptoms were first noticed this evening after dinner. Nursing staff contacted the ED to give report and then transferred the patient 2 hours later. On arrival, the patient is alert and oriented place and has difficulty speaking with right facial droop and right upper extremity weakness involving forearm and hand. EMS was unable to state whether or not symptoms or new or baseline for the patient. CT call was activated. History is limited due the patient's. Communication. Additional history obtained from hospital medical records, long-term and family members. Recent hospital admission for urinary tract infection and MS flare. [] Review of Systems Review of Systems U symptoms as per history of present illness. All other systems were reviewed and found to be within normal limits, except as documented in this note. Current Medications Current Medications Current Medications Medications (Trade) Dose Ordered Sig/Estrada Start Time Stop Time Status Last Admin Dose Admin Ceftriaxone Sodium 1 gm/ Sodium Chloride 50 ml @ 100 mls/hr 1X ONCE 08/22/19 22:15 08/22/19 22:44 DC 08/22/19 22:32 100 MLS/HR Ceftriaxone Sodium (Rocephin) 1 gm STK-MED ONCE 08/22/19 22:21 08/22/19 22:21 DC Methylprednisolone Sodium Succinate (SOLU-Medrol 125MG VIAL) 125 mg 1X ONCE 08/22/19 22:15 08/22/19 22:16 DC 08/22/19 22:32 125 MG Sodium Chloride 50 ml @ As Directed STK-MED ONCE 08/22/19 22:21 08/22/19 22:21 DC Allergies Allergies Allergies Coded Allergies Type Severity Reaction Last Updated Verified atorvastatin Allergy Intermediate 08/10/19 Yes rosuvastatin Allergy Intermediate 08/10/19 Yes I S O L A T I O N *CONTACT* Allergy Unknown 03/15/19 Yes Physical Exam Physical Exam Constitutional: Well developed, well nourished, no acute distress, non-toxic appearance. [] HENT: Normocephalic, atraumatic, bilateral external ears normal, oropharynx moist, no oral exudates, nose normal. [] Eyes: PERRLA, EOMI, conjunctiva normal, no discharge. [] Neck: Normal range of motion, no tenderness, supple, no stridor. [] Cardiovascular: tachycardic[] Lungs & Thorax: Bilateral breath sounds clear to auscultation [] Abdomen: Bowel sounds normal, soft, no tenderness, no masses. [] Skin: Warm, dry, no erythema, no rash. [] Back: No tenderness, no CVA tenderness. [] Extremities: No tenderness, no cyanosis, no clubbing, ROM intact, no edema. [] Neurologic: Alert and oriented to person, right facial droop, right upper forearm/hand. Paresis of bilateral lower extremities., [] Psychologic: Affect normal, judgement normal, mood normal. [] Current Patient Data Vital Signs Vital Signs Date Time Temp Pulse Resp B/P (MAP) Pulse Ox O2 Delivery O2 Flow Rate FiO2 08/22/19 19:33 100.3 124 28 95 Nasal Cannula 4.0 Lab Results Laboratory Tests Test 08/22/19 20:37 08/22/19 21:20 08/22/19 22:08 White Blood Count 10.4 x10^3/uL (4.0-11.0) Red Blood Count 4.52 x10^6/uL (3.50-5.40) Hemoglobin 13.0 g/dL (12.0-15.5) Hematocrit 39.5 % (36.0-47.0) Mean Corpuscular Volume 87 fL (79-100) Mean Corpuscular Hemoglobin 29 pg (25-35) Mean Corpuscular Hemoglobin Concent 33 g/dL (31-37) Red Cell Distribution Width 15.8 % (11.5-14.5) H Platelet Count 269 x10^3/uL (140-400) Neutrophils (%) (Auto) 78 % (31-73) H Lymphocytes (%) (Auto) 15 % (24-48) L Monocytes (%) (Auto) 4 % (0-9) Eosinophils (%) (Auto) 2 % (0-3) Basophils (%) (Auto) 1 % (0-3) Neutrophils # (Auto) 8.1 x10^3uL (1.8-7.7) H Lymphocytes # (Auto) 1.6 x10^3/uL (1.0-4.8) Monocytes # (Auto) 0.5 x10^3/uL (0.0-1.1) Eosinophils # (Auto) 0.2 x10^3/uL (0.0-0.7) Basophils # (Auto) 0.1 x10^3/uL (0.0-0.2) Prothrombin Time 9.9 SEC (9.4-11.4) Prothrombin Time INR 1.0 (0.9-1.1) Activated Partial Thromboplast Time 25 SEC (23-33) Sodium Level 135 mmol/L (136-145) L Potassium Level 4.1 mmol/L (3.5-5.1) Chloride Level 100 mmol/L (98-107) Carbon Dioxide Level 27 mmol/L (21-32) Anion Gap 8 (6-14) Blood Urea Nitrogen 11 mg/dL (7-20) Creatinine 0.9 mg/dL (0.6-1.0) Estimated GFR (Cockcroft-Gault) 62.1 BUN/Creatinine Ratio 12 (6-20) Glucose Level 148 mg/dL (70-99) H Calcium Level 8.5 mg/dL (8.5-10.1) Total Bilirubin 0.2 mg/dL (0.2-1.0) Aspartate Amino Transferase (AST) 16 U/L (15-37) Alanine Aminotransferase (ALT) 10 U/L (14-59) L Alkaline Phosphatase 62 U/L (46-116) Ammonia < 10 mcmol/L (11-34) L Troponin I Quantitative 0.074 ng/mL (0-0.055) H C-Reactive Protein 36.1 mg/L (0-3.3) H OX-Sam-Y-Type Natriuretic Peptide 175 pg/mL (0-124) H Total Protein 8.0 g/dL (6.4-8.2) Albumin 2.9 g/dL (3.4-5.0) L Albumin/Globulin Ratio 0.6 (1.0-1.7) L Urine Collection Type U cath Urine Color Yellow Urine Clarity Cloudy Urine pH 5.5 Urine Specific [place] 1.020 Urine Protein >100 mg/dl (NEG-TRACE) Urine Glucose (UA) Neg mg/dL (NEG) Urine Ketones (Stick) Neg mg/dL (NEG) Urine Blood Mod (NEG) Urine Nitrite Pos (NEG) Urine Bilirubin Neg (NEG) Urine Urobilinogen Dipstick 0.2 mg/dL (0.2 mg/dL) Urine Leukocyte Esterase Mod (NEG) Urine RBC 3-5 /HPF (0-2) Urine WBC >40 /HPF (0-4) Urine Squamous Epithelial Cells Occ /LPF Urine Bacteria Many /HPF (0-FEW) Lactic Acid Level 1.7 mmol/L (0.4-2.0) EKG EKG [EKG: Reviewed] Radiology/Procedures Radiology/Procedures [CT head: No acute intracranial disease per radiology report] Course & Med Decision Making Course & Med Decision Making Pertinent Labs and Imaging studies reviewed. (See chart for details) Patient' symptoms with significant improvement in the emergency department. An initial NIH stroke score was 6. However, symptoms felt due to MS likely secondary to urinary tract infection. Please tachycardia improved with IV fluids. Giving complexity of patient and the need for an MRI, the patient will be transferred to [facility] Dr. Sawyer to admit. Final Impression Final Impression [1. Altered mental status 2. Urinary tract infection 2. MS flair] Draganabell Disclaimer Dragon Disclaimer This electronic medical record was generated, in whole or in part, using a voice recognition dictation system. BLAINE BAUMAN DO Aug 22, 2019 23:19
[2019-08-23 02:05] VITALS: BP 99/64
[2019-08-23] MEDS ORDERED: ZOLPIDEM 5 MG TABLET. PO PRN (03:30)
[2019-08-23 05:25] VITALS: BP 107/69
[2019-08-23 10:50] VITALS: BP 112/63
[2019-08-23] MEDS ORDERED: SODIUM PHOSPHATES 19/7GM 133 ML ENEMA. RC PRN (14:00)
[2019-08-23] MEDS ORDERED: traMADol 50 MG TABLET PO PRN (14:00)
[2019-08-23] MEDS ORDERED: ACETAMINOPHEN 500 MG TABLET PO PRN (14:00)
[2019-08-23] MEDS ORDERED: guaiFENesin 300 MG/15 ML LIQUID PO PRN (14:00)
[2019-08-23] MEDS ORDERED: ALBUTEROL SULFATE 2.5 MG/3 ML NEBU. NEB PRN (14:00)
[2019-08-23] MEDS ORDERED: MAGNESIUM HYDROXIDE 2,400 MG/30 ML ORAL.SUSP. PO PRN (14:00)
[2019-08-23] MEDS ORDERED: BISACODYL 10 MG SUPP.RECT RC PRN (14:00)
[2019-08-23] MEDS: GABAPENTIN 300 MG CAPSULE. PO SCH ×2 (14:13→20:41)
[2019-08-23] MEDS: HYDROcodone/APAP 7.5/325MG 1 TAB TABLET PO SCH ×2 (14:13→21:42)
[2019-08-23] MEDS: OXYBUTYNIN CHLORIDE 5 MG TABLET PO SCH ×2 (14:13→20:41)
[2019-08-23 15:26] VITALS: BP 118/76
--- NOTE | 2019-08-23 16:25 | HP ---
ADMIT DATE: 08/23/2019 HISTORY OF PRESENT ILLNESS: The patient is a 69-year-old female patient, a resident at [facility] in [place], who was brought to the Emergency Room with altered mental status, right-sided facial droop, right upper extremity weakness, and tachycardia. Symptoms were first noticed yesterday evening after dinner. Nursing staff contacted the Emergency Department to give report and then transferred the patient 2 hours later; however, on arrival, the patient is alert, oriented to time and place, and has difficulty speaking with right facial droop and right upper extremity weakness involving forearm and hand. The EMS was unable to state whether or not the symptoms are new or baseline for the patient. A stroke code was activated and history is limited due to the patient's communication deficit. She was extensively investigated and has had a CT scan of the head, which basically showed that there is no acute intracranial hemorrhage. She has low attenuation in the periventricular white matter, suggestive of chronic small vessel ischemic disease. She has also suspected remote lacunar infarcts in bilateral thalami. These findings were not well visualized in the prior CT and may have developed in the interim. When the ER physician last night called me, the plan was for the patient to be transferred to [facility] for an MRI; however, I have not received any communication after that as to why the plan was changed and the patient was admitted to [facility]. Apparently, her tachycardia has improved with IV fluid. Her initial NIH score was 6. However, her symptoms were felt due to a multiple sclerosis flareup likely secondary to urinary tract infection; at least, this is what was written in the report by the ER physician. PAST MEDICAL HISTORY: Significant for hypertension, hyperlipidemia, longstanding multiple sclerosis, peripheral neuropathy. The patient has functional paraplegia. She is mostly bedbound, chair bound. She has chronic constipation, osteoarthritis, osteoporosis, urinary retention, incontinence, and recurrent UTI. PAST SURGICAL HISTORY: Significant for right cataract extraction, oophorectomy and hysterectomy. ALLERGIES: She has no known drug allergies. FAMILY HISTORY: She has 1 brother older and 1 sister. Both of her parents are . SOCIAL HISTORY: She is , has 3 children. She is an ex-smoker, does not drink alcohol or use any recreational drugs. She has been at [facility] for the last 4 years because of multiple sclerosis. MEDICATIONS: She is currently on following medications: She is on MiraLax 17 grams every other day, glimepiride for Amaryl 2 mg once a day, Senna 1 tablet once a day, aspirin 325 mg once a day, potassium chloride 20 mEq once a day, analgesic balm 1 application twice a day, Lactobacillus rhamnosus 1 capsule twice a day, nystatin powder applied topically twice a day, Myrbetriq 25 mg twice a day, docusate sodium 100 mg twice a day, cefdinir 300 mg twice a day. ____ 500 mg 4 times a day, metformin 500 mg twice a day, milk of magnesia 30 mL p.o. daily p.r.n. for constipation, Tylenol 500 mg every 6 hours and tramadol 50 mg every 6 hours p.r.n., oxybutynin chloride for Ditropan 5 mg 3 times a day. She is on Fleet enemas once every 72 hours, hydrocodone/APAP 7.5/325 one tablet every 8 hours. ____ for Robitussin 100 mg every 6 hours, gabapentin 300 mg 3 times a day, bisacodyl 10 mg suppository rectally daily p.r.n. for constipation, albuterol sulfate 2.5 mg every 4 hours, and Ambien 5 mg at bedtime. PHYSICAL EXAMINATION: GENERAL: On arrival to the Emergency Room, apparently, she was pale, no jaundice, cyanosis, or thyromegaly. No jugular venous distension. No lower limb edema. VITAL SIGNS: Her heart rate was 74, blood pressure was 105/57, temperature was 100.3, respiratory rate was 28, and oxygen saturation was 95% on 4 liters of oxygen. HEAD, EYES, EARS, NOSE, AND THROAT: Normocephalic, atraumatic. NECK: Supple. HEART: Showed normal first and second heart sounds with no gallop, rub or murmur. CHEST: Clear to auscultation. No crepitation or rhonchi. ABDOMEN: Distended, soft, nontender. NEUROLOGIC: She was alert, oriented to person. She has right facial droop, right upper arm and hand with weakness and has obviously varices of bilateral lower extremity. Her affect, judgment, and mood were normal. LABORATORY DATA: While in the Emergency Room, she has had lab work done showed a white cell count of 10,400, hemoglobin 13, hematocrit 39, MCV 87, and platelet count of 269,000. Her chemistry showed a serum sodium 135, potassium 4.1, chloride 100, bicarbonate 27, anion gap of 8, BUN 11, creatinine 0.9, estimated GFR was 62 mL per minute. Her glucose 148, calcium was 8.5. Total bilirubin, AST, ALT, alkaline phosphatase were normal. C-reactive protein was 36. Total protein was 8, albumin was 2.9. TSH was 0.49 and her lactic acid was 1.7. Her prothrombin time was 9.9, INR of 1, aPTT was 25. Urinalysis showed the urine was yellow, cloudy with a pH of 5.5, specific gravity of 1.020. There are more than 100 mg/dL proteins. The urine was negative for glucose, ketones. There was moderate amount of blood, positive for nitrite, negative for bilirubin, moderate amount of leukocyte esterase, 3-5 rbc's, more than 40 wbc's, many bacteria. Her chest x-ray showed the patient's cardiomediastinal silhouette is similar in appearance. Left retrocardiac density may represent subsegmental atelectasis versus pulmonary infiltrate. There is no significant pleural effusion. There is no pulmonary vascular congestion, no pneumothorax, and CT scan of the head showed no evidence of intracranial hemorrhage. She has low attenuation in the periventricular white matter suggestive of chronic small vessel ischemic changes finding, may be associated with underlying multiple sclerosis, suspected remote lacunar infarct in bilateral thalami. These findings are not well visualized and the prior CT and may have developed in the interim. PLAN: The patient was admitted, was continued on IV antibiotic in the form of Rocephin. Continue with IV fluid. My plan is to consult Dr. Carpio. She has had a carotid Doppler ultrasound done recently and showed that she has mild atherosclerotic plaque formation seen involving both carotid bifurcation, no hemodynamically significant stenosis or areas of occlusion is seen. However, her recent CT scan showed that she has suspected remote lacunar infarct in the bilateral thalami. These findings are new and not well visualized and the prior CT, may have developed in the interim; therefore, I would consult Dr. Carpio to see whether we need to change her to Plavix or not. ARMOND PEREIRA MD DR: HONORIO/nina JOB#: [id number] / [id number]
[2019-08-23] MEDS ORDERED: D MANNOSE 500 MG PO SCH (17:00)
[2019-08-23] MEDS: metFORMIN XR 500 MG TAB.ER.24H PO SCH (18:21)
[2019-08-23 20:10] VITALS: BP 99/63
--- NOTE | 2019-08-23 20:19 | PN ---
DATE: 08/23/2019 SUBJECTIVE: The patient is resting, slightly propped up in bed, in no apparent distress. She is awake, alert. There is definitely no evidence for right-sided facial droop. She was able to talk without difficulty and make her needs known. She is able to move her upper extremities equally with equal strength. PHYSICAL EXAMINATION: GENERAL: When I examined her this afternoon, she looked well and was clearly in no apparent respiratory distress. No pallor, jaundice, cyanosis or thyromegaly. No jugular venous distension. No limb edema. VITAL SIGNS: Her heart rate was 80, blood pressure was 112/63, temperature was 98.7, respiratory rate 22, and oxygen saturation was 93% on 3 liters of oxygen on room air. HEAD, EYES, EARS, NOSE AND THROAT: Showed normocephalic, atraumatic. NECK: Supple. HEART: Showed normal first and second heart sounds. No gallop or murmur. CHEST: Clear to auscultation. No crepitation or rhonchi. ABDOMEN: Distended, soft, nontender. NEUROLOGIC: She is definitely awake, alert, responding appropriately. All cranial nerves intact. She moves upper extremities without difficulty with equal strength. She has bilateral lower extremity secondary to functional paraplegia due to longstanding multiple sclerosis. LABORATORY DATA: She has apparently 3 sets of cardiac enzymes showed troponin to be less than 0.017 and second troponin was up to 0.074, the third one was 0.062. Her lactic acid was down to 1.7. TSH was normal. PLAN: My plan is to continue with IV Rocephin, continued all her medication. I will consult for the Cardiology as well as the Neurology team. She seemed to have a new finding on the CT scan that was not detected on her last CT scan. I am not sure if this is a manifestation of multiple sclerosis with this focality and indicates probably a TIA. ARMOND PEREIRA MD DR: HONORIO/nina JOB#: [id number] / [id number]
[2019-08-23] MEDS: DOCUSATE SODIUM 100 MG CAPSULE PO SCH (20:41)
[2019-08-23] MEDS: METHYL SALICYLATE/MENTHOL TOPICAL OINTMENT 57GM TUBE. TP SCH (20:41)
[2019-08-23] MEDS: MIRABEGRON 25 MG TAB.ER.24H PO SCH (20:41)
[2019-08-23] MEDS: NYSTATIN 100,000 UNIT/GM TOPICAL CREAM 15GM TUBE. TP SCH (20:41)
[2019-08-23] MEDS: LACTOBACILLUS RHAMNOSUS GG 1 CAPSULE. PO SCH (20:41)
[2019-08-23] MEDS ORDERED: CEFDINIR 300 MG CAPSULE PO SCH (21:00)
[2019-08-24 05:23] VITALS: BP 96/50
[2019-08-24] MEDS: HYDROcodone/APAP 7.5/325MG 1 TAB TABLET PO SCH ×2 (06:05→14:09)
[2019-08-24] MEDS ORDERED: POTASSIUM CHLORIDE 20 MEQ TABLET.ER. PO SCH (08:00)
[2019-08-24] MEDS: GABAPENTIN 300 MG CAPSULE. PO SCH ×2 (08:12→14:09)
[2019-08-24] MEDS: DOCUSATE SODIUM 100 MG CAPSULE PO SCH (08:12)
[2019-08-24] MEDS: MIRABEGRON 25 MG TAB.ER.24H PO SCH (08:13)
[2019-08-24] MEDS: OXYBUTYNIN CHLORIDE 5 MG TABLET PO SCH ×2 (08:13→14:09)
[2019-08-24] MEDS: LACTOBACILLUS RHAMNOSUS GG 1 CAPSULE. PO SCH (08:13)
[2019-08-24] MEDS: metFORMIN XR 500 MG TAB.ER.24H PO SCH (08:13)
[2019-08-24] MEDS: METHYL SALICYLATE/MENTHOL TOPICAL OINTMENT 57GM TUBE. TP SCH (08:14)
[2019-08-24] MEDS: NYSTATIN 100,000 UNIT/GM TOPICAL CREAM 15GM TUBE. TP SCH (08:14)
[2019-08-24] MEDS ORDERED: SENNOSIDES 8.6 MG TABLET PO SCH (09:00)
[2019-08-24] MEDS ORDERED: GLIMEPIRIDE 2 MG TABLET PO SCH (09:00)
[2019-08-24] MEDS ORDERED: ASPIRIN 325 MG TABLET PO SCH (09:00)
[2019-08-24 11:00] VITALS: BP 96/62
--- NOTE | 2019-08-24 11:04 | CONS ---
DATE OF CONSULTATION: NEURO CONSULT REFERRING PHYSICIAN: Dr. Sawyer. REASON FOR CONSULTATION: Mental status change, rule out TIA. HISTORY OF PRESENT ILLNESS: This is a 69-year-old right-handed female who is known to me from many years when she was diagnosed with multiple sclerosis, was admitted through Emergency Room after she presented with chief complaints of intermittent confusions began the night of 08/22/2019. The patient is a resident of [facility], was found to have mild right-sided weakness and tachycardia. According to the patient, she was somewhat confused and disoriented. She did not know where she was, but next morning, she was more and oriented. EMS was activated and transferred the patient to Emergency Room when she was found to be alert and oriented, but she was found to have urinary tract infections. Initial nonenhanced head CT scan revealed evidence of chronic small vessel ischemic changes and periventricular attenuations. She did not have any acute intracranial process. Since admission, the patient has not had any new neurological complaints. She denies headaches, visual disturbances, nausea, vomiting, chest pain, shortness of breath or palpitation, dysarthria, dysphagia or vertigo. The patient also complains of numbness and paresthesia along with weakness of the feet. PAST MEDICAL HISTORY: Significant for multiple sclerosis, hypertension, hyperlipidemia, peripheral neuropathy, osteoarthritis, osteoporosis, frequent urinary tract infections, urinary incontinence and constipation, diabetes mellitus. SOCIAL HISTORY: The patient denies smoking, alcohol drinking, or illicit drug uses PAST SURGICAL HISTORY: Significant for cataract extraction of the right eye, oophorectomy, and hysterectomy. FAMILY HISTORY: Noncontributory. SOCIAL HISTORY: The patient is . She has 3 children. She denies smoking, alcohol drinking, or illicit drug use. She is a [facility] resident. REVIEW OF SYSTEMS: A 10-point review of system was performed as mentioned above in history of present illness. The patient has numbness and paresthesia of the distal lower extremities with bilateral foot drops, probably secondary to multiple sclerosis along with urinary incontinence. CURRENT HOME MEDICATIONS: MiraLax, glimepiride, aspirin, potassium, Nystatin powder, cefdinir, Tylenol, tramadol, oxybutynin, hydrocodone, Robitussin, and albuterol nebulizer. ALLERGIES: No known drug allergies. PHYSICAL EXAMINATION: GENERAL: Well-developed, well-nourished female, not in acute distress. VITAL SIGNS: Blood pressure 96/50, respiratory rate 20, pulse is 86, temperature 97.7, oxygen saturation 97% on room air. HEENT: Normocephalic, atraumatic, otherwise unremarkable. NECK: Supple. Negative for carotid bruit, lymphadenopathy or thyromegaly. LUNGS: Clear to A and P. CARDIOVASCULAR: Regular rate and rhythm, normal S1, S2. There is no S3, S4 or murmurs. ABDOMEN: Soft. Bowel sounds positive. EXTREMITIES: Negative for cyanosis, clubbing or edema. NEUROLOGICAL EXAM: Mental Status: The patient is alert and oriented x 3. The speech is fluent. There is no language dysfunction. Memory, judgment, and abstracting thinking are normal. The patient denies hallucination or delusion. CRANIAL NERVES: Visual dover are full. The pupils are reactive to light and accommodation. The extraocular movements are intact. There is no nystagmus. There is no facial motor or sensory deficit. Hearing is intact bilaterally. The palate is elevated symmetrically. Sternocleidomastoid muscles are powerful bilaterally. The patient shrugs her shoulders symmetrically, protrudes her tongue in the midline without fasciculation or atrophy. MOTOR: No focal muscle bulk was seen. The tone is normal. The strength is 5/5 in the upper extremity and 3/5 in the distal lower extremities due to bilateral foot drop. SENSORY EXAMINATION: Revealed diminished pinprick and light touch senses in stocking distributions bilaterally. Deep tendon reflexes were symmetric and hypoactive with absent Achilles responses. GAIT: Not tested. The patient is bed bound and wheelchair bound as well. DIAGNOSTIC DATA: Initial nonenhanced head CT scan revealed no acute intracranial process, but showed periventricular attenuation consistent with chronic small vessel ischemic changes and demyelinating process. Chest x-ray revealed left retrocardiac density. The differential includes atelectasis versus infiltration. LABORATORY DATA: CBC revealed white blood cells of 10.4 thousand, hemoglobin 13, hematocrit 39.5, platelet count 269. Chemistry from 08/22/2019 revealed sodium 135, potassium 4.1, chloride 100, CO2 of 27, pCO2 of 27. Her BUN 11, creatinine 0.9, glucose 148. A1c is 8.1. Calcium 8.5, magnesium 1.7. Liver enzymes not elevated. Ammonia less than 10. Troponin level is 0.06. CRP is high at 36. NPB is 175. Triglyceride is high at 176 with LDL of 83, normal TSH. Urinalysis is positive for urinary tract infections, positive nitrite and moderate urinary leukocyte esterase with white blood cells of more than 40 along with many bacteria. IMPRESSION: 1. Acute encephalopathy -- resolved, probably due to underlying urinary tract infections in a patient with long history of multiple sclerosis. 2. Rule out transient ischemic attack. 3. Urinary tract infections, diabetes mellitus, and hypomagnesemia, peripheral neuropathy of the lower extremities. RECOMMENDATIONS: 1. Continue with current management initiated by Dr. Sawyer and continue with aspirin for now. 2. Carotid Doppler study. 3. Further management depends on the result of carotid Doppler study. M Darling GIBBONS MD DR: ELO/nina JOB#: [id number] / [id number]
--- NOTE | 2019-08-24 11:26 | EKG ---
[address] [address] Test Date: 2019-08-22 Test Time: 20:50:53 Pat Name: JOHANNY MARRUFO Department: Room: 124 A Gender: F Service Tech: : [id number] Requested By: BLAINE BAUMAN Order Number: [id number] Reading MD: Kasi Hart MD Measurements Intervals [place] Rate: 118 P: -156 TN: 132 QRS: 15 QRSD: 80 T: 14 QT: 356 QTc: 501 Interpretive Statements SINUS TACHYCARDIA NON-SPECIFIC ST/T CHANGES Electronically Signed On 08-31-2019 14:21:50 CDT by Kasi Hart MD
--- NOTE | 2019-08-24 17:33 | DS ---
DATE OF DISCHARGE: 08/24/2019 HOSPITAL COURSE: The patient is a 69-year-old right-handed female patient, known to have longstanding multiple sclerosis, was admitted to the Emergency Room with chief complaint of intermittent confusion. She also has mild right-sided weakness and tachycardia. She has also had difficulty talking according to the ER physician. She was brought to the Emergency Room where she was found to have urinary tract infection and her CT scan showed new lacunar infarct that was not available on the prior CT scan, but the patient's symptoms have completely resolved since admission and has denied any headache, visual disturbances, nausea, vomiting, chest pain, shortness of breath. She was started on IV ceftriaxone for urinary tract infection and she remained stable. Her last urine culture grew Escherichia coli sensitive to cephalosporins and therefore the patient was discharged back to [facility] on cefuroxime 500 mg twice a day. PHYSICAL EXAMINATION: GENERAL: When I saw her this afternoon, she looked well and was clearly in no apparent respiratory distress, pale, but no jaundice, cyanosis or thyromegaly. No jugular venous distention. No lower limb edema. VITAL SIGNS: Her heart rate was 94. Her blood pressure was 96/62, temperature was 98.1, respiratory rate 20 and oxygen saturation was 97% on 3 liters of oxygen. HEAD, EYES, EARS, NOSE AND THROAT: Showed normocephalic, atraumatic. NECK: Supple. HEART: Showed normal first and second heart sounds with no gallop, rub or murmur. CHEST: Clear to auscultation. No crepitation or rhonchi. ABDOMEN: Distended, soft, nontender. NEUROLOGIC: She is awake, alert, responding appropriately. All cranial nerves intact. She moves upper extremities without difficulty. However, she has functional paraplegia due to longstanding multiple sclerosis. She is mostly bedbound, wheelchair bound. Her intake and output incompletely recorded. LABORATORY DATA: This morning showed a white cell count of 10,400, hemoglobin 13, hematocrit 39, MCV 87 and platelet count 269,000. Her chemistry showed serum sodium 135, potassium 4.1, chloride 100, bicarbonate 27, anion gap of 8, BUN 11, creatinine 0.9, estimated GFR was 62 mL per minute. Her glucose was 148, calcium was 8.5. Total bilirubin, AST, ALT, alkaline phosphatase were normal. Her C-reactive protein was 36 mg/dL, total protein was 8, albumin was 2.9. Her prothrombin time, INR and aPTT were normal. Urinalysis showed that she has large amount of protein. There was moderate amount of leukocyte esterase, positive for nitrite, more than 40 wbc's and too many bacteria. Her blood cultures are so far negative. Her CT scan of the head showed that the patient has low attenuation in the periventricular white matter, suggestive of chronic small vessel ischemic changes, however, findings may be associated with underlying multiple sclerosis. She has multiple remote lacunar infarcts in bilateral thalami. These findings are not well visualized on the prior CT and may have developed in the interim. DISCHARGE MEDICATIONS: She was discharged to [facility] to continue on all her medication and we added also cefuroxime 500 mg p.o. b.i.d. for 7 days. FINAL DISCHARGE DIAGNOSES: 1. Questionable transient ischemic attack. 2. Acute encephalopathy, resolved. 3. Urinary tract infection. 4. Type 2 diabetes mellitus. 5. Longstanding multiple sclerosis. 6. Peripheral neuropathy. 7. Osteoporosis. 8. Osteoarthritis. ARMOND PEREIRA MD DR: HONORIO/nina JOB#: [id number] / [id number]
[2019-08-25] MEDS ORDERED: POLYETHYLENE GLYCOL 3350 17 GM PACKET. PO SCH (09:00)
== END 2019-08-24 14:45 | disposition home or self-care (01) | DRG 689 ==
LOC: ER 19:33 → 1 SOUTH 08-23 00:30
PROVIDERS: ADMIT Internal Medicine; ATTEND Internal Medicine
DX: N39.0 Urinary tract infection, site not specified (principal); G93.41 Metabolic encephalopathy; G45.9 Transient cerebral ischemic attack, unspecified; I10 Essential (primary) hypertension; Z87.440 Personal history of urinary (tract) infections; B96.20 Unspecified Escherichia coli [E. coli] as the cause of diseases classified elsewhere; E11.42 Type 2 diabetes mellitus with diabetic polyneuropathy; E78.00 Pure hypercholesterolemia, unspecified; E78.5 Hyperlipidemia, unspecified; E83.42 Hypomagnesemia; F03.90 Unspecified dementia, unspecified severity, without behavioral disturbance, psychotic disturbance, mood disturbance, and anxiety; G35 Multiple sclerosis; I25.10 Atherosclerotic heart disease of native coronary artery without angina pectoris; J44.9 Chronic obstructive pulmonary disease, unspecified; M19.90 Unspecified osteoarthritis, unspecified site; M81.0 Age-related osteoporosis without current pathological fracture; Z87.891 Personal history of nicotine dependence; Z90.710 Acquired absence of both cervix and uterus; Z98.41 Cataract extraction status, right eye; F32.9 Major depressive disorder, single episode, unspecified; Z90.49 Acquired absence of other specified parts of digestive tract; Z88.8 Allergy status to other drugs, medicaments and biological substances; Z98.49 Cataract extraction status, unspecified eye
CPT/HCPCS: 36415; 70450; 71045; 80053; 81001; 82140; 83605; 83880; 84443; 84484; 85025; 85610; 85730; 86140; 87040; 93005; 96361; 96365; 96375; J0696; J2930; P9612; 99285-25; J7030

== ENCOUNTER 2020-10-09 20:42 | Inpatient (IN) | payer MEDICARE, OTHER ==
[~2020-10-09] VITALS: Ht 165.1 cm; Wt 91.2 kg
[~2020-10-09 20:42] MED LIST changes: -MAGN2400 PO; +MAGN24003 PO; +METF-658 PO; -METF500T11 PO; +SENN-182 PO; -SENN-80 PO
--- NOTE | 2020-10-09 20:53 | PHYS DOC ---
Past History Past Medical History: Arthritis, Bronchitis, CAD, COPD, Dementia, Depression, Diabetes, High Cholesterol, Hypertension, UTI, Other Additional Past Medical Histor: MS Past Surgical History: No Surgical History, Appendectomy, Hysterectomy Smoking: Non-smoker, Quit Greater Than 1 Year Alcohol Use: None Drug Use: None General Adult HPI: HPI: History taken from patient and EMS. Patient is a 70-year-old female with multiple comorbidities who presents with chief complaint of low oxygen level. Per EMS they were called to her assisted living facility for low oxygenation. Patient states she was tested and tested positive for coronavirus approximately 1 week ago. She states at that time. Her primary care physician have upped her home oxygen requirement to 10 L nasal cannula. EMS states they were called to the patient facility because she was satting at 83% on her home nasal cannula requirement. Per EMS the patient does have documentation indicating DNR status. Patient states she has no complaints. She states she feels as though she is in her usual state of health. She denies chest pain or shortness breath. Does note a slight increase in cough over the past 2 weeks. Denies any abdominal pain or vomiting. Denies syncope. Patient states that she would like to go back to her facility if possible. She states that she has no increase in fatigue. Denies any fevers. Denies lack of appetite. Patient has no complaints. Review of Systems: Review of Systems: Constitutional: Denies fever or chills Eyes: Denies change in visual acuity HENT: Denies nasal congestion or sore throat Respiratory: Positive for cough Cardiovascular: Denies chest pain or edema GI: Denies abdominal pain, nausea, vomiting, bloody stools or diarrhea : Denies dysuria Musculoskeletal: Denies back pain or joint pain Integument: Denies rash Neurologic: Denies headache, focal weakness or sensory changes Endocrine: Denies polyuria or polydipsia Lymphatic: Denies swollen glands Psychiatric: Denies depression or anxiety Allergies: Allergies: Allergies Coded Allergies Type Severity Reaction Last Updated Verified atorvastatin Allergy Intermediate 08/10/19 Yes rosuvastatin Allergy Intermediate 08/10/19 Yes I S O L A T I O N *CONTACT* Allergy Unknown 03/15/19 Yes Physical Exam: PE: Constitutional: Well developed, well nourished, no acute distress, non-toxic appearance. [] HENT: Normocephalic, atraumatic, bilateral external ears normal, oropharynx moist, no oral exudates, nose normal. [] Eyes: PERRLA, EOMI, conjunctiva normal, no discharge. [] Neck: Normal range of motion, no tenderness, supple, no stridor. [] Cardiovascular:Heart rate tachycardic, regular rhythm, no murmur [] Lungs & Thorax: Lungs clear to auscultation bilaterally. Nontachypneic. No respiratory distress appreciated. Speaking in full sentences. 10 L nasal cannula in place. 94%. Abdomen: soft, no tenderness, no masses, no pulsatile masses. [] Skin: Warm, dry, no erythema, no rash. [] Back: No tenderness, no CVA tenderness. [] Extremities: No tenderness, no cyanosis, no clubbing, ROM intact, no edema. [] Neurologic: Alert and oriented X 3, normal motor function, normal sensory function, no focal deficits noted. [] Psychologic: Affect normal, judgement normal, mood normal. [] Current Patient Data: Labs: Laboratory Tests Test 10/09/20 20:48 White Blood Count 9.2 x10^3/uL Red Blood Count 4.44 x10^6/uL Hemoglobin 12.8 g/dL Hematocrit 39.6 % Mean Corpuscular Volume 89 fL Mean Corpuscular Hemoglobin 29 pg Mean Corpuscular Hemoglobin Concent 33 g/dL Red Cell Distribution Width 13.6 % Platelet Count 252 x10^3/uL Neutrophils (%) (Auto) 82 % Lymphocytes (%) (Auto) 13 % Monocytes (%) (Auto) 4 % Eosinophils (%) (Auto) 1 % Basophils (%) (Auto) 1 % Neutrophils # (Auto) 7.5 x10^3uL Lymphocytes # (Auto) 1.2 x10^3/uL Monocytes # (Auto) 0.4 x10^3/uL Eosinophils # (Auto) 0.1 x10^3/uL Basophils # (Auto) 0.0 x10^3/uL Sodium Level 136 mmol/L Potassium Level 3.8 mmol/L Chloride Level 100 mmol/L Carbon Dioxide Level 28 mmol/L Anion Gap 8 Blood Urea Nitrogen 24 mg/dL Creatinine 0.9 mg/dL Estimated GFR (Cockcroft-Gault) 61.9 BUN/Creatinine Ratio 27 Glucose Level 253 mg/dL Calcium Level 8.7 mg/dL Total Bilirubin 0.3 mg/dL Aspartate Amino Transf (AST/SGOT) 27 U/L Alanine Aminotransferase (ALT/SGPT) 23 U/L Alkaline Phosphatase 61 U/L Troponin I Quantitative < 0.017 ng/mL Total Protein 8.0 g/dL Albumin 2.4 g/dL Albumin/Globulin Ratio 0.4 Current Medications Medications (Trade) Dose Ordered Sig/Estrada Route PRN Reason Start Time Stop Time Status Last Admin Dose Admin Sodium Chloride 1,000 ml @ 1,000 mls/hr 1X ONCE IV 10/09/20 21:00 10/09/20 21:59 DC 10/09/20 21:00 Vital Signs: Vital Signs Date Time Temp Pulse Resp B/P (MAP) Pulse Ox O2 Delivery O2 Flow Rate FiO2 10/09/20 21:24 118 20 97/62 (74) 94 High Flow Nasal Cannula 10.0 EKG: EKG: [] EKG consistent with sinus tachycardia. Ventricular rate of 117 bpm. [place] normal. Q waves noted in the inferior leads. No ST segment elevation appreciated. Nonspecific EKG. Radiology/Procedures: Radiology/Procedures: [place] [address] IMAGING REPORT Signed PATIENT: JOHANNY MARRUFO ACCOUNT: [id number] : 1950 LOCATION: ER AGE: 70 SEX: F EXAM STATUS: REG ER ORD. PHYSICIAN: NANCY BYRNE DO REASON: SOB PROCEDURE: CHEST AP ONLY Chest AP portable at 2107: Reason for examination: Shortness of breath. Comparison is made to previous study dated 08/22/2019. The heart size is normal. Mediastinum is unremarkable. Lung dover show diffuse hazy interstitial type infiltrates bilaterally. No pleural effusions or pneumothorax are seen. No acute bony abnormalities are seen. IMPRESSION: Bilateral interstitial infiltrates. Electronically signed by: Darrian Mckeon MD (10/09/2020 10:37 PM) [facility] DICTATED AND SIGNED BY: DARRIAN MCKEON MD DATE: 10/09/20 2237 CC: NANCY BYRNE DO; LAILA HASSAN MD ~[facility] 0 [] Heart Score: Risk Factors: Risk Factors: DM, Current or recent (<one month) smoker, HTN, HLP, family h istory of CAD, obesity. Risk Scores: Score 0 - 3: 2.5% MACE over next 6 weeks - Discharge Home Score 4 - 6: 20.3% MACE over next 6 weeks - Admit for Clinical Observation Score 7 - 10: 72.7% MACE over next 6 weeks - Early Invasive Strategies Course & Med Decision Making: Course & Med Decision Making Pertinent Labs and Imaging studies reviewed. (See chart for details) [] Patient is a 70-year-old female who presents with chief complaint of increasing oxygen requirement from her assisted living facility. She does note she was diagnosed with coronavirus approximate 1 week ago was discharged home with 2 L nasal cannula. Her and both state that her oxygen requirements increased to 10 L nasal cannula 4 days ago by her primary care physician. EMS were called her assisted living facility for an oxygen saturation of 83%. Upon arrival patient appears in no distress. 94% on 10 L nasal cannula. Labs were obtained and were grossly unremarkable. Chest x-ray shows bilateral infiltrates. Patient is a DNR CODE STATUS. I did discuss plan of care with the patient and extensively. Initially requested transfer to [facility] however this facility did not have any capacity to accept the patient. Although the patient is a DNR status and explicitly stated she did not want intubated she does have an increase in oxygen requirement. I do feel she would benefit from hospitalization. She will be given oral Decadron as well as vancomycin and Zosyn. Patient will be hospitalized at our facility for further care. and patient agreeable to this. Dragon Disclaimer: Swapna Disclaimer: This electronic medical record was generated, in whole or in part, using a voice recognition dictation system. Departure Departure: Impression: Primary Impression: Respiratory failure Qualified Codes: J96.21 - Acute and chronic respiratory failure with hypoxia Additional Impressions: COVID-19 Hyperglycemia Disposition: 09 ADMITTED INPT THIS HOSP Condition: STABLE Referrals: LAILA HASSAN MD (PCP) Critical Care Time The patient had a high probability of sudden, clinically significant deterio ration, which required the highest level of physician preparedness to intervene urgently. I managed life or organ supporting interventions that required frequent re-assessment throughout their stay in the emergency department. The total critical care time spent managing their case, separate from other billable procedures, was 15 minutes. NANCY BYRNE DO Oct 09, 2020 20:53
[2020-10-09] MEDS ORDERED: IV NORMAL SALINE 1,000ML 1,000 ML IV ONE (21:00)
[2020-10-09 21:10] LABS: HEMOGLOBIN 12.8 g/dL (12.0-15.5); RED BLOOD COUNT 4.44 x10^6/uL (3.50-5.40); WHITE BLOOD COUNT 9.2 x10^3/uL (4.0-11.0)
[2020-10-09 21:11] LABS: BASO % 1 % (0-3); EOS % 1 % (0-3); HEMATOCRIT 39.6 % (36.0-47.0); LYMPH # 1.2 x10^3/uL (1.0-4.8); LYMPH % 13 % (24-48); MEAN CORPUSCULAR HEMOGLOBIN 29 pg (25-35); MEAN CORPUSCULAR HGB CONC 33 g/dL (31-37); MEAN CORPUSCULAR VOLUME 89 fL (79-100); MONO # 0.4 x10^3/uL (0.0-1.1); MONO % 4 % (0-9); NEUT # 7.5 x10^3uL (1.8-7.7); NEUT % 82 % (31-73); PLATELET COUNT 252 x10^3/uL (140-400); RED CELL DISTRIBUTION WIDTH 13.6 % (11.5-14.5)
[2020-10-09 21:12] LABS: EOS # 0.1 x10^3/uL (0.0-0.7)
[2020-10-09 21:26] LABS: ALBUMIN 2.4 g/dL (3.4-5.0); ALBUMIN/GLOBULIN RATIO 0.4 (1.0-1.7); CALCIUM 8.7 mg/dL (8.5-10.1); CREATININE 0.9 mg/dL (0.6-1.0); GFR 61.9; POTASSIUM 3.8 mmol/L (3.5-5.1); TOTAL BILIRUBIN 0.3 mg/dL (0.2-1.0)
--- NOTE | 2020-10-09 22:40 | RAD ---
Chest AP portable at 2107: Reason for examination: Shortness of breath. Comparison is made to previous study dated 08/22/2019. The heart size is normal. Mediastinum is unremarkable. Lung dover show diffuse hazy interstitial type infiltrates bilaterally. No pleural effusions or pneumothorax are seen. No acute bony abnormalities are seen. IMPRESSION: Bilateral interstitial infiltrates. Electronically signed by: Vvii Bolanos MD (10/09/2020 10:37 PM) [facility]
--- NOTE | 2020-10-09 23:25 | EKG ---
[facility] ED [facility] [place] [address] Test Date: 2020-10-09 Test Time: 20:59:40 Pat Name: JOHANNY MARRUFO Department: Room: Gender: F Document Control Clerk: : 1950 Requested By: NANCY BYRNE Order Number: [id number] Reading MD: Measurements Intervals [place] Rate: 117 P: 216 [place]: 128 QRS: 52 QRSD: 76 T: 38 QT: 348 QTc: 490 Interpretive Statements SINUS TACHYCARDIA OTHERWISE NORMAL ECG RI6.02 No previous ECG available for comparison
[2020-10-09] MEDS ORDERED: VANCOMYCIN 2 GM in IV NORMAL SALINE 500ML 500 ML IV ONE (23:30)
[2020-10-09] MEDS ORDERED: PIPERACILLIN/TAZOBACTAM 3.375 GM in IV NORMAL SALINE 50ML 50 ML IV ONE (23:30)
[2020-10-09] MEDS ORDERED: DEXAMETHASONE SOD PHOS 10 MG/ML VIAL. PO ONE (23:30)
[2020-10-09] MEDS ORDERED: VANCOMYCIN 1 GM VIAL. ONE (23:58)
[2020-10-09] MEDS ORDERED: PIPERACILLIN/TAZOBACTAM 3.375 GM VIAL IV ONE (23:58)
[2020-10-09] MEDS ORDERED: IV NORMAL SALINE 500ML 500 ML ONE (23:58)
[2020-10-09] MEDS ORDERED: IV NORMAL SALINE 50ML 50 ML ONE (23:58)
[2020-10-10] VITALS (23 sets, daily range): BP systolic 112–154; BP diastolic 55–101
[2020-10-10] MEDS ORDERED: IBUP400T18 PO (05:15)
[2020-10-10] MEDS ORDERED: GLIP5TAB10 PO (05:15)
[2020-10-10] MEDS ORDERED: LORA2ORA2 PO (05:15)
[2020-10-10] MEDS ORDERED: PHEN95TA27 PO (05:15)
[2020-10-10] MEDS ORDERED: BENZ200C47 PO (05:15)
[2020-10-10 06:40] LABS: BASO % 0 % (0-3); EOS % 0 % (0-3); HEMATOCRIT 37.9 % (36.0-47.0); HEMOGLOBIN 12.1 g/dL (12.0-15.5); LYMPH # 0.9 x10^3/uL (1.0-4.8); LYMPH % 12 % (24-48); MEAN CORPUSCULAR HEMOGLOBIN 29 pg (25-35); MEAN CORPUSCULAR HGB CONC 32 g/dL (31-37); MEAN CORPUSCULAR VOLUME 90 fL (79-100); MONO # 0.2 x10^3/uL (0.0-1.1); MONO % 3 % (0-9); NEUT # 6.1 x10^3uL (1.8-7.7); NEUT % 85 % (31-73); PLATELET COUNT 227 x10^3/uL (140-400); RED BLOOD COUNT 4.22 x10^6/uL (3.50-5.40); RED CELL DISTRIBUTION WIDTH 13.7 % (11.5-14.5); WHITE BLOOD COUNT 7.2 x10^3/uL (4.0-11.0)
[2020-10-10 06:52] LABS: CALCIUM 8.1 mg/dL (8.5-10.1); CREATININE 0.8 mg/dL (0.6-1.0); GFR 70.9
[2020-10-10] MEDS ORDERED: PIP/TAZO PER PHARMACY MC PRN (12:30)
[2020-10-10] MEDS: PIPERACILLIN/TAZOBACTAM 4.5 GM in IV NORMAL SALINE 50ML 50 ML IV SCH ×3 (13:39→23:19)
[2020-10-10] MEDS: ENOXAPARIN 40 MG/0.4 ML SYRINGE. SQ SCH (13:41)
[2020-10-10] MEDS ORDERED: SODIUM PHOSPHATES 19/7GM 133 ML ENEMA. RC PRN (14:30)
[2020-10-10] MEDS ORDERED: guaiFENesin 300 MG/15 ML LIQUID PO PRN (14:30)
[2020-10-10] MEDS ORDERED: ALBUTEROL SULFATE 2.5 MG/3 ML NEBU. NEB PRN (14:30)
[2020-10-10] MEDS ORDERED: BISACODYL 10 MG SUPP.RECT RC PRN (14:30)
[2020-10-10] MEDS ORDERED: PHENAZOPYRIDINE 100 MG TABLET. PO PRN (15:30)
[2020-10-10] MEDS ORDERED: MAGNESIUM HYDROXIDE 2,400 MG/30 ML ORAL.SUSP. PO PRN (15:30)
[2020-10-10] MEDS ORDERED: ACETAMINOPHEN 325 MG TABLET PO PRN (15:30)
[2020-10-10] MEDS ORDERED: LORazepam 0.5 MG TABLET PO PRN (15:30)
--- NOTE | 2020-10-10 15:41 | HP ---
ADMIT DATE: 10/09/2020 HISTORY OF PRESENT ILLNESS: The patient is a 70-year-old female patient, a resident at [facility] in [place], who was brought to the Emergency Room with chief complaint of hypoxia. The EMS was called to her assisted living facility for low oxygenation. She stated that she had tested positive for coronavirus approximately 1 week ago. At that time, her primary care physician upped her home oxygen requirement 10 liters by nasal cannula. EMS states that we were called to the patient's facility because she was satting at 83% on her home nasal cannula. The patient does have documentation including a DNR status. The patient stated that she has no complaint and that she feels that she is in her usual state of health. She denied any chest pain or shortness of breath. Does note a slight increase in her cough over the last 2 weeks. Denied any abdominal pain or vomiting. Denied any syncope. She was evaluated in the Emergency Room, has had lab work and imaging studies. Her chest x-ray showed the patient has bilateral interstitial infiltrates and the patient therefore was admitted with hiknq-ey-mougthc hypoxic respiratory failure, COVID-19 pneumonia, was started on antibiotic for healthcare-associated pneumonia together with dexamethasone, remdesivir and convalescent plasma. PAST MEDICAL HISTORY: Significant for hypertension, hyperlipidemia, longstanding progressive multiple sclerosis, peripheral neuropathy and functional paraplegia. She is mostly chair bound. She has chronic constipation, osteoarthritis, osteoporosis, urinary retention, incontinence and recurrent UTIs. PAST SURGICAL HISTORY: Significant for right cataract extraction, oophorectomy and hysterectomy. ALLERGIES: She has no known drug allergies. FAMILY HISTORY: She has 1 brother older and 1 sister, both of her parents are . SOCIAL HISTORY: She is , has 3 children. She is an ex-smoker, does not drink alcohol or use any recreational drugs. She has been at [facility] for almost 5 years because of multiple sclerosis. MEDICATIONS: She is currently on following medications: She is on albuterol sulfate 2.5 mg by nebulizer every 4 hours, aspirin 325 mg once a day, ibuprofen 400 mg every 6 hours, methyl salicylate/menthol to be applied twice a day, hydrocodone/APAP 7.5/325 one tablet every 8 hours, Tylenol 650 mg every 4 hours, gabapentin 300 mg 3 times a day, lorazepam 0.5 mg every 6 hours, potassium chloride 20 mEq once a day, benzonatate 200 mg 3 times a day, guaifenesin 100 mg p.o. q. 6 hourly, bisacodyl 10 mg suppositories rectally daily p.r.n. for constipation, Colace 100 mg twice a day, magnesium hydroxide for milk of magnesia 30 mL p.o. daily p.r.n. for constipation, sodium phosphate enema 133 mL rectally daily p.r.n. for constipation, lactobacillus rhamnosus 1 capsule twice a day. She is on metformin 500 mg twice a day, glimepiride 2 mg daily, glipizide 5 mg p.o. daily, phenazopyridine 95 mg 3 times a day, Myrbetriq 50 mg daily, D-mannose for ____ 500 mg 4 times a day. REVIEW OF SYSTEMS: As per history of present illness. PHYSICAL EXAMINATION: GENERAL: On arrival to the Emergency Room, the patient looked well and was clearly in no apparent respiratory distress, pale, but no jaundice, cyanosis or thyromegaly. No jugular venous distention. No lower limb edema. VITAL SIGNS: Her heart rate was 118, blood pressure was 97/62, temperature was 98. Her oxygen saturation was 91% on 12 liters of oxygen by nasal cannula. HEAD, EYES, EARS, NOSE AND THROAT: Showed normocephalic, atraumatic. NECK: Supple. HEART: Showed normal first and second heart sounds. No gallop or murmur. CHEST: Shows central trachea. Equally reduced chest expansion, reduced air entry is observed. No crepitation or rhonchi. ABDOMEN: Scaphoid, soft, nontender. No guarding or rigidity. No organomegaly. All hernial orifices intact. Bowel sounds normal. NEUROLOGIC: She was awake, alert, responding appropriately. All cranial nerves intact. She has progressive multiple sclerosis with functional paraplegia. She is mostly bed bound, wheelchair bound. LABORATORY DATA: Her lab work on admission showed a white cell count 9200, hemoglobin 13, hematocrit 39, MCV 89 and platelet count 252,000. Her chemistry showed a serum sodium 136, potassium 3.8, chloride 100, bicarbonate 28, anion gap of 8, BUN 24. Estimated GFR was 61 mL per minute. Her glucose was 253. Calcium was 8.7. Total bilirubin, AST, ALT, alkaline phosphatase were normal. Total protein was 8, albumin was 2.4. ASSESSMENT: In summary, this is a 70-year-old female patient, a resident at [facility] in [place], who was admitted with COVID-19 pneumonia, acute on chronic hypoxic respiratory failure. Her chest x-ray showed that the patient's heart size is normal, mediastinum is unremarkable, lung dover show diffuse hazy interstitial infiltrates bilaterally, no pleural effusion or pneumothorax seen. No acute bony abnormalities are seen. PLAN: To reconcile all her medication and continue with IV dexamethasone together with IV antibiotic for healthcare-associated pneumonia in the form of Zosyn and vancomycin. We have also ordered remdesivir and convalescent plasma. ARMOND PEREIRA MD DR: HONORIO/nina JOB#: [id number] / [id number]
[2020-10-10] MEDS ORDERED: DEXTROSE 50% 25 GM / 50ML DISP.SYRIN. IV PRN (16:00)
[2020-10-10] MEDS: INSULIN LISPRO 300 UNITS/3 ML VIAL. SQ SCH (17:00)
[2020-10-10] MEDS ORDERED: D MANNOSE 500 MG PO SCH (17:00)
[2020-10-10] MEDS: VANCOMYCIN PER PHARMACY MC PRN (17:35)
[2020-10-10] MEDS: DEXAMETHASONE SOD PHOS 10 MG/ML VIAL. IV SCH ×2 (17:54→23:19)
[2020-10-10] MEDS: IPRATROPIUM/ALBUTEROL 20/100mcg/INH INHALER. INH SCH ×2 (17:54→20:32)
[2020-10-10] MEDS ORDERED: REMDESIVIR LOAD in IV NORMAL SALINE 250ML TV IV ONE (20:00)
[2020-10-10] MEDS: GABAPENTIN 300 MG CAPSULE. PO SCH (20:33)
[2020-10-10] MEDS: BENZONATATE 100 MG CAPSULE. PO SCH (20:33)
[2020-10-10] MEDS: LACTOBACILLUS RHAMNOSUS GG 1 CAPSULE. PO SCH (20:33)
[2020-10-10] MEDS: METHYL SALICYLATE/MENTHOL TOPICAL OINTMENT 57GM TUBE. TP SCH (20:33)
[2020-10-10] MEDS: HYDROcodone/APAP 7.5/325MG 1 TAB TABLET PO SCH (20:33)
[2020-10-10] MEDS: DOCUSATE SODIUM 100 MG CAPSULE PO SCH (20:33)
[2020-10-10] MEDS: metFORMIN XR 500 MG TAB.ER.24H PO SCH (20:33)
--- NOTE | 2020-10-10 23:34 | PN ---
DATE: 10/10/2020 SUBJECTIVE: The patient was admitted yesterday from [facility] in [place] with qiaza-xo-sqdauer hypoxic respiratory failure. It transpired that she has bilateral lung infiltrate and probably healthcare-associated pneumonia and was started on dexamethasone as well as remdesivir and I also added vancomycin and Zosyn. PHYSICAL EXAMINATION: GENERAL: When I saw her today, she looked well and was clearly in no apparent respiratory distress. No pallor, jaundice, cyanosis or thyromegaly. No jugular venous distention or limb edema. VITAL SIGNS: Her heart rate was 94, blood pressure was 139/74, temperature was 97.4, respiratory rate 20, and oxygen saturation was 91% on 2 liters of oxygen. HEAD, EYES, EARS, NOSE AND THROAT: Showed normocephalic, atraumatic. NECK: Supple. HEART: Showed normal first and second heart sounds. No gallop or murmur. CHEST: Clear to auscultation. No crepitation or rhonchi. ABDOMEN: Distended, soft, nontender. NEUROLOGIC: She is awake, alert, responding appropriately. All cranial nerves are intact. She moves extremities without difficulty. The patient has progressive multiple sclerosis with functional paraplegia. Her intake and output were incompletely recorded. LABORATORY DATA: Her lab work this morning showed a serum sodium 137, potassium 4, chloride 102, bicarbonate 25, anion gap of 10, BUN 20, creatinine 0.8, estimated GFR was 71 mL per minute. Her glucose 290, calcium was 8.1. White cell count was 7200, hemoglobin 12, hematocrit 37, MCV was 90 and platelet count of 227,000. ASSESSMENT: COVID-19 pneumonia, acute on chronic hypoxic respiratory failure, multiple sclerosis, type 2 diabetes, chronic obstructive pulmonary disease, hypertension and hyperlipidemia, urinary tract infection. ARMOND PEREIRA MD DR: HONORIO/nina JOB#: [id number] / [id number]
[2020-10-11] VITALS (28 sets, daily range): BP systolic 104–150; BP diastolic 55–90
[2020-10-11] MEDS: VANCOMYCIN 1.25 GM in IV NORMAL SALINE 250ML 250 ML IV SCH (00:06)
[2020-10-11] MEDS: HYDROcodone/APAP 7.5/325MG 1 TAB TABLET PO SCH ×3 (05:00→21:17)
[2020-10-11] MEDS: DEXAMETHASONE SOD PHOS 10 MG/ML VIAL. IV SCH ×4 (05:00→23:01)
[2020-10-11] MEDS: PIPERACILLIN/TAZOBACTAM 4.5 GM in IV NORMAL SALINE 50ML 50 ML IV SCH ×4 (05:01→23:01)
[2020-10-11 06:21] LABS: HEMATOCRIT 36.3 % (36.0-47.0); HEMOGLOBIN 11.7 g/dL (12.0-15.5); RED BLOOD COUNT 4.05 x10^6/uL (3.50-5.40); RED CELL DISTRIBUTION WIDTH 13.2 % (11.5-14.5); WHITE BLOOD COUNT 6.5 x10^3/uL (4.0-11.0)
[2020-10-11 06:44] LABS: ALBUMIN 2.2 g/dL (3.4-5.0); ALBUMIN/GLOBULIN RATIO 0.4 (1.0-1.7); CALCIUM 8.2 mg/dL (8.5-10.1); CREATININE 0.8 mg/dL (0.6-1.0); GFR 70.9; POTASSIUM 3.8 mmol/L (3.5-5.1); TOTAL BILIRUBIN 0.3 mg/dL (0.2-1.0); TOTAL PROTEIN 7.5 g/dL (6.4-8.2)
[2020-10-11] MEDS: IPRATROPIUM/ALBUTEROL 20/100mcg/INH INHALER. INH SCH ×4 (08:39→19:59)
[2020-10-11] MEDS: ASPIRIN 325 MG TABLET PO SCH (08:40)
[2020-10-11] MEDS: metFORMIN XR 500 MG TAB.ER.24H PO SCH ×2 (08:40→20:00)
[2020-10-11] MEDS: MIRABEGRON 25 MG TAB.ER.24H PO SCH (08:40)
[2020-10-11] MEDS: LACTOBACILLUS RHAMNOSUS GG 1 CAPSULE. PO SCH ×2 (08:40→20:00)
[2020-10-11] MEDS: glipiZIDE 5 MG TABLET PO SCH (08:40)
[2020-10-11] MEDS: POTASSIUM CHLORIDE 20 MEQ TABLET.ER. PO SCH (08:40)
[2020-10-11] MEDS: DOCUSATE SODIUM 100 MG CAPSULE PO SCH ×2 (08:40→20:00)
[2020-10-11] MEDS: GABAPENTIN 300 MG CAPSULE. PO SCH ×3 (08:40→20:00)
[2020-10-11] MEDS: METHYL SALICYLATE/MENTHOL TOPICAL OINTMENT 57GM TUBE. TP SCH ×2 (08:41→20:00)
[2020-10-11] MEDS: BENZONATATE 100 MG CAPSULE. PO SCH ×3 (08:42→20:00)
[2020-10-11] MEDS: INSULIN LISPRO 300 UNITS/3 ML VIAL. SQ SCH ×3 (08:44→17:31)
[2020-10-11] MEDS ORDERED: GLIMEPIRIDE PO SCH (09:00)
[2020-10-11] MEDS: ENOXAPARIN 40 MG/0.4 ML SYRINGE. SQ SCH (12:10)
--- NOTE | 2020-10-11 13:49 | PN ---
DATE: 10/11/2020 ATTENDING PHYSICIAN: Dr. Sawyer and Dr. Xiong. SUBJECTIVE: The patient is less dyspneic. She is still requiring high flow oxygen at 10 liters to maintain 90% saturation. She has a mild dry and nonproductive cough. No new worsening changes in her respiratory status. She is a DNR per advanced directives. I did review her chest x-ray. OBJECTIVE FINDINGS: VITAL SIGNS: Blood pressure today is 136/70 mmHg, pulse 82 and regular, temperature 97.7 degrees Fahrenheit, oxygen flow rate 12 liters by nasal cannula to maintain saturations 92%. HEENT: Head is without trauma. Pupils are reactive. Sclerae nonicteric. Oropharynx is clear. NECK: Supple, no bruits. LUNGS: Coarse rhonchi bilaterally. CARDIOVASCULAR: Showed distant heart tones. No gallops. ABDOMEN: Soft. EXTREMITIES: Show trace edema. She is nonambulatory. There is muscle wasting. LABORATORY DATA: Reviewed. Hemoglobin today is 11.7 g/dL, white count 6500. Electrolytes within normal range. Nonfasting blood sugar 290, creatinine 0.8 mg percent. ASSESSMENT: 1. A 70-year-old female, [facility] resident with COVID-19, coronavirus pneumonia bilaterally. 2. Acute on chronic respiratory failure requiring high-flow supplemental oxygen. 3. History of multiple sclerosis. The patient is nonambulatory and bedridden. 4. Frequent urinary tract infection. 5. Generalized debilitation. 6. Hyperglycemia due to steroids. PLAN: 1. Continue started regimen of remdesivir, today is the second day for 4 days treatment. 2. Continue convalescent plasma. 3. Other meds reviewed. 4. Diet as tolerated. 5. We should try to wean down her high flow oxygen. 6. The patient remains a DNR per advanced directives. CRISTA XIONG MD DR: EZRA/nina JOB#: [id number] / [id number] ARMOND Zapata MD
[2020-10-11] MEDS: REMDESIVIR 100mg in NORMAL SALINE 250ML X 4 DAYS IV SCH (19:59)
[2020-10-11 23:56] LABS: VANC TR 2.5 mcg/mL (10.0-20.0)
[2020-10-12] VITALS (15 sets, daily range): BP systolic 133–163; BP diastolic 72–101
[2020-10-12] MEDS: VANCOMYCIN 1.25 GM in IV NORMAL SALINE 250ML 250 ML IV SCH ×3 (00:10→23:24)
[2020-10-12] MEDS: VANCOMYCIN PER PHARMACY MC PRN (03:40)
[2020-10-12] MEDS: PIPERACILLIN/TAZOBACTAM 4.5 GM in IV NORMAL SALINE 50ML 50 ML IV SCH ×4 (05:19→23:23)
[2020-10-12] MEDS: HYDROcodone/APAP 7.5/325MG 1 TAB TABLET PO SCH ×3 (05:19→21:01)
[2020-10-12] MEDS: DEXAMETHASONE SOD PHOS 10 MG/ML VIAL. IV SCH ×4 (05:19→23:22)
[2020-10-12] MEDS: IPRATROPIUM/ALBUTEROL 20/100mcg/INH INHALER. INH SCH ×4 (08:29→19:46)
[2020-10-12] MEDS: ASPIRIN 325 MG TABLET PO SCH (08:30)
[2020-10-12] MEDS: glipiZIDE 5 MG TABLET PO SCH (08:30)
[2020-10-12] MEDS: metFORMIN XR 500 MG TAB.ER.24H PO SCH ×2 (08:30→21:00)
[2020-10-12] MEDS: GABAPENTIN 300 MG CAPSULE. PO SCH ×3 (08:30→21:00)
[2020-10-12] MEDS: LACTOBACILLUS RHAMNOSUS GG 1 CAPSULE. PO SCH ×2 (08:30→21:00)
[2020-10-12] MEDS: BENZONATATE 100 MG CAPSULE. PO SCH ×3 (08:30→21:00)
[2020-10-12] MEDS: POTASSIUM CHLORIDE 20 MEQ TABLET.ER. PO SCH (08:30)
[2020-10-12] MEDS: MIRABEGRON 25 MG TAB.ER.24H PO SCH (08:30)
[2020-10-12] MEDS: METHYL SALICYLATE/MENTHOL TOPICAL OINTMENT 57GM TUBE. TP SCH ×2 (08:31→21:01)
[2020-10-12] MEDS: DOCUSATE SODIUM 100 MG CAPSULE PO SCH ×2 (08:32→21:00)
[2020-10-12] MEDS: ALBUTEROL SULFATE 8GM INHALER. INH PRN ×2 (08:32→22:40)
[2020-10-12] MEDS: INSULIN LISPRO 300 UNITS/3 ML VIAL. SQ SCH ×3 (09:12→17:43)
[2020-10-12] MEDS: ENOXAPARIN 40 MG/0.4 ML SYRINGE. SQ SCH (12:20)
--- NOTE | 2020-10-12 12:36 | PN ---
DATE: ATTENDING PHYSICIAN: Dr. Sawyer. SUBJECTIVE: The patient is tearful. She wants to go back to the group home. I tried to explain to her that they may not be able to take her considering her respiratory status. She still requires 13 liters of high flow oxygen to maintain adequate saturations. OBJECTIVE FINDINGS: VITAL SIGNS: Blood pressure today is 154/81 mmHg, pulse of 67 and regular. She is afebrile. Oxygen saturation 91% on 13 liters by high flow nasal cannula. HEENT: Head is without trauma. Pupils are reactive. Sclerae are nonicteric. Oropharynx is clear. NECK: Supple. No stridor. LUNGS: Shallow respirations with limited air movement. CARDIOVASCULAR: Showed regular heart tones. No gallops. ABDOMEN: Soft. EXTREMITIES: Showed trace edema. She is nonambulatory. SKIN: Warm and dry. ASSESSMENT: 1. A 70-year-old female, group home resident with COVID-19 pneumonia bilaterally. 2. Acute on chronic respiratory failure requiring high-flow supplemental oxygen to maintain saturations. 3. History of longstanding multiple sclerosis. She is nonambulatory and bedridden. 4. Frequent urinary tract infections. 5. Generalized debilitation. 6. Hyperglycemia due to steroids. PLAN: 1. Continue current regimen. She is on the third day of treatment for coronavirus. 2. Continue convalescent plasma, started. 3. Supplemental oxygen to be weaned down as possible. 4. She remains a DNR per advanced directives. CRISTA XIONG MD DR: EZRA/nina JOB#: [id number] / [id number]
[2020-10-12] MEDS: REMDESIVIR 100mg in NORMAL SALINE 250ML X 4 DAYS IV SCH (19:47)
[2020-10-13] VITALS (19 sets, daily range): BP systolic 104–176; BP diastolic 58–110
[2020-10-13] MEDS: HYDROcodone/APAP 7.5/325MG 1 TAB TABLET PO SCH ×3 (05:26→22:00)
[2020-10-13] MEDS: DEXAMETHASONE SOD PHOS 10 MG/ML VIAL. IV SCH ×2 (05:26→12:15)
[2020-10-13] MEDS: PIPERACILLIN/TAZOBACTAM 4.5 GM in IV NORMAL SALINE 50ML 50 ML IV SCH ×4 (05:27→23:57)
[2020-10-13] MEDS: BENZONATATE 100 MG CAPSULE. PO SCH ×3 (09:00→19:55)
[2020-10-13] MEDS: METHYL SALICYLATE/MENTHOL TOPICAL OINTMENT 57GM TUBE. TP SCH ×2 (09:51→19:55)
[2020-10-13] MEDS: IPRATROPIUM/ALBUTEROL 20/100mcg/INH INHALER. INH SCH ×4 (09:51→19:55)
[2020-10-13] MEDS: ALBUTEROL SULFATE 8GM INHALER. INH PRN ×2 (09:51→12:16)
[2020-10-13] MEDS: LACTOBACILLUS RHAMNOSUS GG 1 CAPSULE. PO SCH ×2 (09:52→19:55)
[2020-10-13] MEDS: glipiZIDE 5 MG TABLET PO SCH (09:52)
[2020-10-13] MEDS: MIRABEGRON 25 MG TAB.ER.24H PO SCH (09:52)
[2020-10-13] MEDS: metFORMIN XR 500 MG TAB.ER.24H PO SCH ×2 (09:52→19:55)
[2020-10-13] MEDS: DOCUSATE SODIUM 100 MG CAPSULE PO SCH ×2 (09:52→19:55)
[2020-10-13] MEDS: ASPIRIN 325 MG TABLET PO SCH (09:52)
[2020-10-13] MEDS: GABAPENTIN 300 MG CAPSULE. PO SCH ×3 (09:52→19:55)
[2020-10-13] MEDS: POTASSIUM CHLORIDE 20 MEQ TABLET.ER. PO SCH (09:52)
[2020-10-13] MEDS: INSULIN LISPRO 300 UNITS/3 ML VIAL. SQ SCH ×3 (09:56→17:00)
[2020-10-13] MEDS: ENOXAPARIN 40 MG/0.4 ML SYRINGE. SQ SCH (12:15)
[2020-10-13 13:16] LABS: VANC TR 27.8 mcg/mL (10.0-20.0)
--- NOTE | 2020-10-13 13:33 | PN ---
DATE: 10/13/2020 ATTENDING PHYSICIAN: Dr. Sawyer. SUBJECTIVE: The patient remains tearful and is not understanding why [facility] cannot care for her. She is getting a little bit worse. She is requiring up to 15 liters by nasal cannula. She did not tolerate Venturi breathing mask. OBJECTIVE FINDINGS: VITAL SIGNS: Blood pressure today is 158/97 mmHg, pulse is 88 and regular, temperature 98.0 degrees Fahrenheit, oxygen saturation marginal 89% on 15 liters by nasal cannula. HEENT: Head is without trauma. Pupils are reactive. Sclerae nonicteric. Oropharynx clear. NECK: Supple. No stridor. LUNGS: Shallow respirations. CARDIOVASCULAR: Showed distant heart tones. No gallops. ABDOMEN: Obese, protuberant. No organomegaly. Bowel sounds are hypoactive. EXTREMITIES: Showed trace edema. NEUROLOGIC: Pleasantly confused. Speech is fluent. SKIN: Otherwise warm and dry. LABORATORY DATA: Most recently, her hemoglobin was 11.7. Nonfasting blood sugar 202. ASSESSMENT: 1. A 70-year-old female, senior care resident with COVID-19 pneumonia bilaterally. 2. Acute on chronic respiratory failure requiring high-flow supplemental oxygen to maintain marginal saturations. 3. Longstanding multiple sclerosis. She is nonambulatory and bedridden. 4. Underlying dementia clinically. 5. Frequent urinary tract infections. 6. Generalized debilitation. 7. Hyperglycemia due to steroids. PLAN: 1. Continue remdesivir. She is on her third day of a 4-day total treatment. 2. Continue supplemental oxygen. 3. Continue convalescent plasma. 4. She remains a DNR per advanced directives, comfort measures. CRISTA XIONG MD DR: EZRA/nina JOB#: [id number] / [id number]
[2020-10-13] MEDS: REMDESIVIR 100mg in NORMAL SALINE 250ML X 4 DAYS IV SCH (19:55)
[2020-10-14] VITALS (8 sets, daily range): BP systolic 101–158; BP diastolic 49–95
[2020-10-14] MEDS ORDERED: VANCOMYCIN RANDOM LEVEL. MC ONE
[2020-10-14] MEDS: PIPERACILLIN/TAZOBACTAM 4.5 GM in IV NORMAL SALINE 50ML 50 ML IV SCH ×3 (06:00→18:14)
[2020-10-14] MEDS: HYDROcodone/APAP 7.5/325MG 1 TAB TABLET PO SCH ×3 (06:15→22:00)
[2020-10-14] MEDS: POTASSIUM CHLORIDE 20 MEQ TABLET.ER. PO SCH (08:34)
[2020-10-14] MEDS: LACTOBACILLUS RHAMNOSUS GG 1 CAPSULE. PO SCH ×2 (08:34→20:31)
[2020-10-14] MEDS: DOCUSATE SODIUM 100 MG CAPSULE PO SCH ×2 (08:38→20:31)
[2020-10-14] MEDS: BENZONATATE 100 MG CAPSULE. PO SCH ×3 (08:39→20:31)
[2020-10-14] MEDS: metFORMIN XR 500 MG TAB.ER.24H PO SCH ×2 (08:39→20:31)
[2020-10-14] MEDS: ASPIRIN 325 MG TABLET PO SCH (08:39)
[2020-10-14] MEDS: MIRABEGRON 25 MG TAB.ER.24H PO SCH (08:39)
[2020-10-14] MEDS: GABAPENTIN 300 MG CAPSULE. PO SCH ×3 (08:39→20:31)
[2020-10-14] MEDS: METHYL SALICYLATE/MENTHOL TOPICAL OINTMENT 57GM TUBE. TP SCH ×2 (08:41→20:32)
[2020-10-14] MEDS: IPRATROPIUM/ALBUTEROL 20/100mcg/INH INHALER. INH SCH ×4 (08:41→20:32)
[2020-10-14] MEDS: glipiZIDE 5 MG TABLET PO SCH (08:41)
[2020-10-14] MEDS: INSULIN LISPRO 300 UNITS/3 ML VIAL. SQ SCH ×3 (08:59→18:28)
[2020-10-14 09:35] LABS: ALBUMIN 2.3 g/dL (3.4-5.0); ALBUMIN/GLOBULIN RATIO 0.4 (1.0-1.7); CALCIUM 8.7 mg/dL (8.5-10.1); CREATININE 0.9 mg/dL (0.6-1.0); GFR 61.9; POTASSIUM 4.2 mmol/L (3.5-5.1); TOTAL BILIRUBIN 0.5 mg/dL (0.2-1.0); TOTAL PROTEIN 7.5 g/dL (6.4-8.2)
[2020-10-14] MEDS: ENOXAPARIN 40 MG/0.4 ML SYRINGE. SQ SCH (12:31)
[2020-10-14] MEDS: DIGOXIN IV 500 MCG/2 ML AMPUL. IV SCH ×4 (13:18→18:14)
--- NOTE | 2020-10-14 20:02 | PN ---
DATE: 10/14/2020 ATTENDING PHYSICIAN: Dr. Sawyer and Dr. Xiong. SUBJECTIVE: The patient is calm. She is not agitated. She is still requiring 12 liters of supplemental oxygen. She did not tolerate the Venturi rebreathing mask. OBJECTIVE FINDINGS: VITAL SIGNS: Blood pressure today is 156/66 mmHg, pulse is 100 and regular. She was afebrile, oxygen saturation 91% on 15 liters high flow nasal cannula. HEENT: Head is without trauma. Pupils are reactive. Sclerae are nonicteric. Oropharynx is clear. NECK: Supple. LUNGS: Shallow respirations. CARDIOVASCULAR: Showed regular heart tones. ABDOMEN: Soft. EXTREMITIES: Without edema. NEUROLOGIC: Speech is fluent. She is nonambulatory. She cannot bear weight. SKIN: Warm and dry. ASSESSMENT: 1. A 70-year-old female with bilateral pneumonia due to COVID-19. 2. Acute on chronic respiratory failure, still requiring high flow supplemental oxygen to maintain marginal saturations. 3. Longstanding multiple sclerosis. She has been bedridden. 4. Dementia. 5. Frequent urinary tract infections. 6. Hyperglycemia due to steroids. PLAN: 1. Continue remdesivir to complete. 2. Continue weaning down supplemental oxygen. 3. Convalescent plasma. 4. She remains a DNR per advanced directives. CRISTA XIONG MD DR: EZRA/nina JOB#: [id number] / [id number]
[2020-10-14] MEDS: REMDESIVIR 100mg in NORMAL SALINE 250ML X 4 DAYS IV SCH (20:32)
[2020-10-15] MEDS: PIPERACILLIN/TAZOBACTAM 4.5 GM in IV NORMAL SALINE 50ML 50 ML IV SCH ×5 (00:18→18:00)
[2020-10-15 04:00] VITALS: BP 158/82
[2020-10-15] MEDS: HYDROcodone/APAP 7.5/325MG 1 TAB TABLET PO SCH ×4 (06:00→22:00)
[2020-10-15 08:00] VITALS: BP 169/82
[2020-10-15] MEDS: IPRATROPIUM/ALBUTEROL 20/100mcg/INH INHALER. INH SCH ×4 (08:00→20:42)
[2020-10-15] MEDS: metFORMIN XR 500 MG TAB.ER.24H PO SCH ×2 (08:16→20:41)
[2020-10-15] MEDS: ASPIRIN 325 MG TABLET PO SCH (08:16)
[2020-10-15] MEDS: MIRABEGRON 25 MG TAB.ER.24H PO SCH (08:16)
[2020-10-15] MEDS: DOCUSATE SODIUM 100 MG CAPSULE PO SCH ×2 (08:16→20:41)
[2020-10-15] MEDS: glipiZIDE 5 MG TABLET PO SCH (08:16)
[2020-10-15] MEDS: GABAPENTIN 300 MG CAPSULE. PO SCH ×3 (08:16→20:41)
[2020-10-15] MEDS: LACTOBACILLUS RHAMNOSUS GG 1 CAPSULE. PO SCH ×2 (08:17→20:42)
[2020-10-15] MEDS: BENZONATATE 100 MG CAPSULE. PO SCH ×3 (08:17→20:42)
[2020-10-15] MEDS: METHYL SALICYLATE/MENTHOL TOPICAL OINTMENT 57GM TUBE. TP SCH ×2 (08:17→20:42)
[2020-10-15] MEDS: POTASSIUM CHLORIDE 20 MEQ TABLET.ER. PO SCH (08:18)
[2020-10-15] MEDS: INSULIN LISPRO 300 UNITS/3 ML VIAL. SQ SCH ×3 (09:00→17:00)
[2020-10-15] MEDS: ENOXAPARIN 40 MG/0.4 ML SYRINGE. SQ SCH (11:54)
[2020-10-15 12:18] VITALS: BP 143/74
[2020-10-15 18:19] VITALS: BP 160/100
[2020-10-15 20:05] VITALS: BP 138/75
[2020-10-15] MEDS: ALBUTEROL SULFATE 8GM INHALER. INH PRN (20:42)
[2020-10-15] MEDS: AMOXICILLIN/K CLAV 875/125MG TABLET. PO SCH (20:42)
[2020-10-15 22:10] VITALS: BP 140/75
--- NOTE | 2020-10-15 22:49 | PN ---
DATE: 10/15/2020 ATTENDING PHYSICIAN: Dr. Sawyer. SUBJECTIVE: The patient remains quite marginal in ability to oxygenate. She is still requiring 15 liters with a very marginal saturations 70-80%. She does appear cyanotic, little more lethargic today. She did not tolerate any Venturi mask. She is a DNR for intubation. OBJECTIVE FINDINGS: VITAL SIGNS: Today, her blood pressure today is 169/82, pulse 110 and regular. She is afebrile. Oxygen saturations are marginal, 86% on 15 liters of nasal cannula. HEENT: Head is without trauma. Pupils are reactive. Sclerae nonicteric. The oropharynx is clear. NECK: Supple. CARDIOVASCULAR: Showed tachycardic rhythm. Distant heart tones. LUNGS: Shallow respirations with minimal air movement. ABDOMEN: Soft. EXTREMITIES: Without edema. NEUROLOGIC: Pleasantly confused. ASSESSMENT: 1. A 70-year-old female with bilateral pneumonia due to COVID-19. 2. Acute on chronic respiratory failure, still requiring high flow supplemental oxygen. 3. Longstanding multiple sclerosis. 4. Profound dementia. 5. Generalized debilitation. PLAN: 1. Continue current medication regimen. 2. Comfort measures. 3. She is not improving and maybe in decline, requiring higher levels of oxygen, certainly hospice consideration should be considered. I have had a chance to discuss that with her and the daughter. Her prognosis remains quite guarded. She is a DNR per advanced directives. CRISTA XIONG MD DR: EZRA/nina JOB#: [id number] / [id number]
[2020-10-16 00:10] VITALS: BP 151/80
[2020-10-16 01:50] VITALS: BP 159/105
[2020-10-16 04:15] VITALS: BP 124/100
[2020-10-16] MEDS: HYDROcodone/APAP 7.5/325MG 1 TAB TABLET PO SCH (05:40)
[2020-10-16 06:00] VITALS: BP 162/102
[2020-10-16] MEDS: IPRATROPIUM/ALBUTEROL 20/100mcg/INH INHALER. INH SCH ×2 (08:00→12:00)
[2020-10-16] MEDS: INSULIN LISPRO 300 UNITS/3 ML VIAL. SQ SCH ×2 (08:00→12:00)
--- NOTE | 2020-10-16 08:37 | RAD ---
EXAM: Chest, single view. HISTORY: Covid 19 positive. COMPARISON: 10/09/2020 FINDINGS: A frontal view of the chest is obtained. There has been interval increase in diffuse inters titial and alveolar infiltrate. There are suspected stable small pleural effusions. There is no pneum othorax. The heart is stable in size. IMPRESSION: 1. Slight interval increase in diffuse interstitial and alveolar infiltrate. 2. Stable small pleural effusions. Electronically signed by: Simi Bourne MD (10/16/2020 8:35 AM) [id number]
[2020-10-16] MEDS: MORPHINE SULFATE 2 MG/ML DISP.SYRIN. IV PRN ×2 (08:59→12:34)
[2020-10-16] MEDS: MIRABEGRON 25 MG TAB.ER.24H PO SCH (09:00)
[2020-10-16] MEDS: METHYL SALICYLATE/MENTHOL TOPICAL OINTMENT 57GM TUBE. TP SCH (09:00)
[2020-10-16] MEDS: AMOXICILLIN/K CLAV 875/125MG TABLET. PO SCH (09:00)
[2020-10-16] MEDS: DOCUSATE SODIUM 100 MG CAPSULE PO SCH (09:00)
[2020-10-16] MEDS: metFORMIN XR 500 MG TAB.ER.24H PO SCH (09:00)
[2020-10-16] MEDS: POTASSIUM CHLORIDE 20 MEQ TABLET.ER. PO SCH (09:00)
[2020-10-16] MEDS: GABAPENTIN 300 MG CAPSULE. PO SCH (09:00)
[2020-10-16] MEDS: glipiZIDE 5 MG TABLET PO SCH (09:00)
[2020-10-16] MEDS: LACTOBACILLUS RHAMNOSUS GG 1 CAPSULE. PO SCH (09:00)
[2020-10-16] MEDS: ASPIRIN 325 MG TABLET PO SCH (09:00)
[2020-10-16] MEDS: BENZONATATE 100 MG CAPSULE. PO SCH (09:00)
--- NOTE | 2020-10-16 10:42 | DS ---
DATE OF DISCHARGE: 10/16/2020 ATTENDING PHYSICIAN: Dr. Sawyer. FINAL DISCHARGE DIAGNOSES: 1. Acute on chronic respiratory failure. 2. Refractory hypoxemia, requiring higher doses of supplemental oxygen. 3. COVID-19 pneumonia. 4. Longstanding multiple sclerosis. 5. Profound dementia. 6. Generalized debilitation. 7. Urinary tract infection. 8. Deconditioning. HISTORY AND PHYSICAL: The patient is a 70-year-old female with longstanding multiple sclerosis. She is at [facility]. She is admitted with respiratory failure and chest x-ray evidence of bilateral interstitial pneumonitis consistent with COVID-19 pneumonia. PHYSICAL EXAMINATION: Please see the dictated note. PERTINENT LABORATORY AND X-RAY STUDIES: Numerous here. Her COVID serology was positive. Her hemoglobin was 11.7, white count 6500. Chemistry panel showed adequate blood sugars that was treated accordingly. Electrolytes: Sodium 139 mEq, potassium 4.2. Creatinine was 0.9 mg percent. Nonfasting blood sugar 130. Hemoglobin A1c 8.1. Imaging studies were done of the chest. She had a followup x-ray, which showed interval increase in diffuse interstitial and alveolar infiltrates, small stable bilateral pleural effusion. COURSE IN THE HOSPITAL: The patient was admitted. She was started on coronavirus protocol including a round of remdesivir per protocol as well as convalescent plasma. She had corticosteroids and anticoagulation. She still required higher and higher doses of supplemental oxygen. In fact, she was clinically worse. We had her oxygen up of 15 liters by nasal cannula. She did not tolerate a Venturi mask. She did finally agree to have some BiPAP therapy, which seemed to stabilize her. She has significant anxiety along with underlying dementia. She kept insisting and wanting to go back to the custodial on the 7th hospital day with worsening symptoms, worsening chest x-rays and requiring higher levels of supplemental oxygen to maintain saturations. Even at maximum high flow dose oxygen, we were trying to keep her saturations above 85% and she would desaturate frequently even on this high flow oxygen. Arrangements were then made in discussion with the daughter who is primary DPOA. She is agreeable to go to hospice care. Therefore, she is discharged on the 8th hospital day to go to inpatient hospice. Her meds are unchanged. She will continue her scheduled albuterol, aspirin, cefdinir, glimepiride lactobacillus, lorazepam p.r.n., morphine p.r.n., metformin, Myrbetriq, and potassium replacement. For now, we have held her ibuprofen, Neurontin, hydromorphone, bisacodyl, and Tessalon Perles. In addition for comfort measures, I ordered intravenous morphine every hour and intravenous lorazepam every 2 hours. Her prognosis is quite guarded. She has been a DNR per advanced directives. She was discharged then from our hospital to go to inpatient hospice care. Her prognosis is terminal. CRISTA XIONG MD DR: EZRA/nina JOB#: [id number] / [id number] ARMOND Zapata MD
[2020-10-16] MEDS ORDERED: DIGOXIN IV 500 MCG/2 ML AMPUL. IV ONE (11:15)
[2020-10-16 12:00] VITALS: BP 137/105
[2020-10-16] MEDS: ENOXAPARIN 40 MG/0.4 ML SYRINGE. SQ SCH (12:30)
--- NOTE | 2020-10-17 11:03 | DS ---
DATE OF DISCHARGE: 10/16/2020 The date of the original admission was 10/09/2020. The patient was then discharged on 10/16/2020 to go to hospice. She was admitted to hospice and she in the hospital on 10/17/2020. FINAL DISCHARGE DIAGNOSES: 1. Acute on chronic respiratory failure. 2. Refractory hypoxemia requiring higher and higher doses of supplemental oxygen. 3. COVID-19 pneumonia. 4. Longstanding multiple sclerosis. 5. Profound dementia. 6. Generalized debilitation. 7. Deconditioning. 8. Urinary tract infection. HISTORY AND PHYSICAL: This unfortunate 70-year-old female with multiple sclerosis was at [facility]. She contracted COVID pneumonia. She was admitted on 10/09/2020 with bilateral infiltrates. She had been a DNR per advanced directives. PHYSICAL EXAMINATION: Please see the dictated note. PERTINENT LABORATORY AND X-RAY STUDIES: On the database. Please refer to the extensive database. COURSE IN THE HOSPITAL: The patient was admitted to the ICU. She was given supplemental oxygen requiring higher and higher fractional inspiration of oxygen. Dr. Sawyer had her and started her on the remdesivir protocol along with corticosteroids in the form of Decadron and the convalescent plasma. She did not do well. She became progressively worse. By the seventh hospital day, she was getting worse and requiring higher doses of oxygen. Arrangements were then made for the patient for the hospice. The family was agreeable to this. She was kept comfortable with morphine, Ativan. Shortly thereafter on the morning of the 9th hospital stay, the patient succumbed to her illness. Family was notified. She was pronounced at approximately 0930 hours on the morning of 10/17/2020. CRISTA XIONG MD DR: EZRA/nina JOB#: [id number] / [id number] ARMOND Zapata MD
== END 2020-10-16 13:36 | disposition hospice, inpatient (51) | DRG 177 ==
LOC: ER 20:42 → ICU 23:40
PROVIDERS: ADMIT Internal Medicine; ATTEND Hospitalist
PROC: 5A0935A Assistance with Respiratory Ventilation, Less than 24 Consecutive Hours, High Flow/Velocity Cannula (ICD-10-PCS; 2020-10-09)
PROC: XW033E5 Introduction of Remdesivir Anti-infective into Peripheral Vein, Percutaneous Approach, New Technology Group 5 (ICD-10-PCS; 2020-10-10)
PROC: 5A0935A Assistance with Respiratory Ventilation, Less than 24 Consecutive Hours, High Flow/Velocity Cannula (ICD-10-PCS; 2020-10-10)
PROC: XW13325 Transfusion of Convalescent Plasma (Nonautologous) into Peripheral Vein, Percutaneous Approach, New Technology Group 5 (ICD-10-PCS; principal; 2020-10-11)
PROC: 5A0935A Assistance with Respiratory Ventilation, Less than 24 Consecutive Hours, High Flow/Velocity Cannula (ICD-10-PCS; 2020-10-11)
PROC: 5A0935A Assistance with Respiratory Ventilation, Less than 24 Consecutive Hours, High Flow/Velocity Cannula (ICD-10-PCS; 2020-10-12)
PROC: 5A0935A Assistance with Respiratory Ventilation, Less than 24 Consecutive Hours, High Flow/Velocity Cannula (ICD-10-PCS; 2020-10-13)
PROC: 5A09357 Assistance with Respiratory Ventilation, Less than 24 Consecutive Hours, Continuous Positive Airway Pressure (ICD-10-PCS; 2020-10-13)
PROC: 5A0935A Assistance with Respiratory Ventilation, Less than 24 Consecutive Hours, High Flow/Velocity Cannula (ICD-10-PCS; 2020-10-14)
PROC: 5A0935A Assistance with Respiratory Ventilation, Less than 24 Consecutive Hours, High Flow/Velocity Cannula (ICD-10-PCS; 2020-10-15)
PROC: 5A0935A Assistance with Respiratory Ventilation, Less than 24 Consecutive Hours, High Flow/Velocity Cannula (ICD-10-PCS; 2020-10-16)
DX: U07.1 COVID-19 (principal); J12.89 Other viral pneumonia; J96.21 Acute and chronic respiratory failure with hypoxia; J44.0 Chronic obstructive pulmonary disease with (acute) lower respiratory infection; J91.8 Pleural effusion in other conditions classified elsewhere; N39.0 Urinary tract infection, site not specified; T38.0X5A Adverse effect of glucocorticoids and synthetic analogues, initial encounter; Z51.5 Encounter for palliative care; Z66 Do not resuscitate; E11.65 Type 2 diabetes mellitus with hyperglycemia; R53.81 Other malaise; G35 Multiple sclerosis; K59.09 Other constipation; F32.9 Major depressive disorder, single episode, unspecified; E78.00 Pure hypercholesterolemia, unspecified; E78.5 Hyperlipidemia, unspecified; F03.90 Unspecified dementia, unspecified severity, without behavioral disturbance, psychotic disturbance, mood disturbance, and anxiety; M19.90 Unspecified osteoarthritis, unspecified site; F44.4 Conversion disorder with motor symptom or deficit; F41.9 Anxiety disorder, unspecified; E11.42 Type 2 diabetes mellitus with diabetic polyneuropathy; I10 Essential (primary) hypertension; I25.10 Atherosclerotic heart disease of native coronary artery without angina pectoris; Y95 Nosocomial condition; J84.89 Other specified interstitial pulmonary diseases; M81.0 Age-related osteoporosis without current pathological fracture; Z98.41 Cataract extraction status, right eye; Z90.710 Acquired absence of both cervix and uterus; Z87.891 Personal history of nicotine dependence; Z87.440 Personal history of urinary (tract) infections; Z74.01 Bed confinement status; Y92.89 Other specified places as the place of occurrence of the external cause; Z99.81 Dependence on supplemental oxygen; Z88.8 Allergy status to other drugs, medicaments and biological substances
CPT/HCPCS: 36415; 71045; 80048; 80053; 80202; 82947; 84484; 85025; 85027; 86850; 86900; 86901; 86927; 93005; 94660; 96361; 96365; 96366; 96367; J1100; J1160; J1650; J1815; J2020; J2060; J2270; J2543; J3370; J7040; J7050; J7613; 99285-25; J7030; P9017

== ENCOUNTER 2020-10-16 09:15 | Inpatient (IN) | payer MEDICARE, OTHER ==
[~2020-10-16 09:15] MED LIST changes: +BENZ200C47 PO; +GLIP5TAB10 PO; +IBUP400T18 PO; +LORA2ORA2 PO; +PHEN95TA27 PO
[2020-10-16] MEDS ORDERED: MORPHINE SULFATE 10 MG/ML SYRINGE. IV PRN (14:15)
[2020-10-16] MEDS ORDERED: MORPHINE SULFATE 2 MG/ML DISP.SYRIN. IV PRN (14:30)
--- NOTE | 2020-10-16 15:48 | NUR ---
Patient was transferred over from inpatient care to inpatient hospice. Rao GONZALEZ with [facility] hospice came to the hospital to assist with the patient transfer and care plan. Patients family members were given permission to come visit patient. Sadi from the ER came up to assist the family members with donning and doffing the PAPR suits. Patients daughter Pamela and patients Lobo were the only two family members to come visit. Patient was removed from the BIPAP so she could speak with her family. Patient was left on 15L NC which is placed in the patients mouth. Patients vitals signs are currently 170/82 BP, 122 HR, 80% O2 sat on 15L NC, 20 RR. Patient is going to be started on a continuous morphine drip starting at 2MG per and can be titrated as needed. Patient is currently resting and seems to be comfortable.
[2020-10-16 16:13] VITALS: BP 137/105
[2020-10-16] MEDS: MORPHINE SULFATE 30 MG/30 ML 30 ML IV PRN ×2 (17:16→23:09)
[2020-10-16] MEDS ORDERED: ACETAMINOPHEN 650 MG SUPP.RECT. PR PRN (18:15)
[2020-10-16] MEDS ORDERED: ATROPINE 1% OPHTH SOLUTION 5ML BOTTLE. SL PRN (18:15)
[2020-10-16 20:50] VITALS: BP 120/64
[2020-10-17 06:15] VITALS: BP 123/70
--- NOTE | 2020-10-17 06:20 | NUR ---
Pt now on Hospice with Morphine CONTINUOUS TOWEL ROLLER. Pt asleep/sedated in bed at change of shift with 02 sat in the upper 70's - lower 80's on 15L high flow NC in her mouth. Pt opens eyes to moderate touch and loud voice but did not verbalize any words, just soft groans when moved/turned. Pts lowest 02 during shift was 73-74% on 15L high flow NC for about 3 hrs and then back up into mid-upper 70's. Pt has been tachycardic all shift, HR 120-130's. Amanda-care performed with Q2 turning. Pt had a small smear of soft brown stool and Calmoseptine applied to buttocks. Purewick replaced and suction canister changed. Daughter Pamela called for update on mother and so did detention.
[2020-10-17] MEDS: MORPHINE SULFATE 30 MG/30 ML 30 ML IV PRN (06:26)
--- NOTE | 2020-10-17 08:58 | NUR ---
Assumed patient care this morning and patient is still on 15L NC with the COAL TRAMMER morphine infusion at 4mg. The patient is sedated and unresponsive at this time. Patients vitals signs are 126/64 BP, HR 122, 74% O2 Sat on 15L NC. Per Hospice guidelines the oxygen supply was reduced. Patient was also given Ativan at this time. Patient began to deSat and eventually went into respiratory failure that followed with cardiac arrest. Patient was pronounced at 0845 10/17/2020 by Shaneka GONZALEZ and Marina GONZALEZ. Blanca overnight houseperson was notified of and this RN notified the patients daughter Pamela and Lobo. advertising dispatch clerks supervisor will notify [facility] of patients .
--- NOTE | 2020-10-17 10:21 | NUR ---
[facility] picked up the patients body to be transported to the home. All personal belongings, besides the patients dentures, which went with the patient to the home, will be picked up by the patients .
== END 2020-10-17 10:00 | DRG 177 ==
LOC: ICU 13:36
PROVIDERS: ADMIT Hospitalist; ATTEND Hospitalist
DX: U07.1 COVID-19 (principal); J96.21 Acute and chronic respiratory failure with hypoxia; J12.89 Other viral pneumonia; N39.0 Urinary tract infection, site not specified; F03.90 Unspecified dementia, unspecified severity, without behavioral disturbance, psychotic disturbance, mood disturbance, and anxiety; Z66 Do not resuscitate
CPT/HCPCS: J2060; J2270